=== PATIENT | male | born 1950 | race Caucasian/White ===

== ENCOUNTER 2018-04-19 10:29 | Observation (INO) | payer OTHER ==
[~2018-04-19] VITALS: Ht 185.4 cm; Wt 80.0 kg
[2018-04-19 10:33] VITALS: BP 151/69; PULSE 101; RESP 16; TEMP 98.1; O2SAT 95
--- NOTE | 2018-04-19 11:39 | PD ---
HPI Chief Complaint: Chest Pain Time Seen by Provider: 11:23 Travel History International Travel<30 days: No Contact w/Intl Traveler<30days: No Traveled to known affect area: No History of Present Illness HPI 68-year-old male with PMH of MRSA, chronic alcoholism presents the ED for evaluation of left-sided chest pain. Onset at rest "around 6AM." Intermittent , rated 7/10, sharp, no alleviating or exacerbating factors. Accompanied by nausea. No pain on presentation. Patient denies diaphoresis, palpitations, radiation of the pain, vomiting. Patient also reports that "I feel drunk even though my last beer was about 12 hours ago." He denies headache, dizziness, vision changes, slurred speech, unilateral weakness. He denies history of withdrawal seizure. He has not seen a PCP in many years. He takes no daily medications. He has been a pack-a-day smoker since he was a teenager. He is unsure of any family history of [place]. [facility] Social History Alcohol Use: Yes (occasionally) Tobacco Use: Yes Substance Use: No Allergies-Medications (Allergen,Severity, Reaction): Coded Allergies: *MDRO Multi-Drug Resistant Organism (Verified Adverse Reaction, Unknown, 08/25/16) MRSA (face-08/23/16) Review of Systems Except as stated in HPI: all other systems reviewed are Neg Physical Exam Narrative GENERAL: Well-nourished, well-developed white female no acute distress. SKIN: Focused skin assessment warm/dry. Deeply tanned. HEAD: Normocephalic. EYES: No scleral icterus. No injection or drainage. PERRLA. EOMI. NECK: Supple, trachea midline. No JVD or lymphadenopathy. CARDIOVASCULAR: Regular rate and rhythm without murmurs, gallops, or rubs. RESPIRATORY: Breath sounds clear and equal bilaterally. No accessory muscle use. GASTROINTESTINAL: Abdomen soft, non-tender, nondistended. Active bowel sounds. MUSCULOSKELETAL: No cyanosis, or edema. NEUROLOGICAL: Awake and alert. Cranial nerves II through XII intact. Motor and sensory grossly within normal limits. Five out of 5 muscle strength in all muscle groups. Mild tremor noted. Normal speech. BACK: Nontender without obvious deformity. No CVA tenderness. Data Data Last Documented VS Vital Signs Date Time Temp Pulse Resp B/P (MAP) Pulse Ox O2 Delivery O2 Flow Rate FiO2 6/25/18 12:55 04/19/18 11:50 100 04/19/18 10:33 98.1 101 16 Orders Orders Electrocardiogram (04/19/18 10:39) Complete Blood Count With Diff (04/19/18 10:39) Basic Metabolic Panel (Bmp) (04/19/18 10:39) Ckmb (Isoenzyme) Profile (04/19/18 10:39) Troponin I (04/19/18 10:39) Chest, Single Ap (04/19/18 10:39) Iv Access Insert/Monitor (04/19/18 10:39) Ecg Monitoring (04/19/18 10:39) Oxygen Administration (04/19/18 10:39) Oximetry (04/19/18 10:39) Aspirin (Aspirin) (04/19/18 11:45) Sodium Chlor 0.9% 1000 Ml Inj (Ns 1000 M (04/19/18 11:45) Alcohol (Ethanol) (04/19/18 11:35) Lipase (04/19/18 11:35) CKMB (04/19/18 10:53) CKMB% (04/19/18 10:53) Alcohol Withdrawal Asmt-Ciwa ONCE (04/19/18 13:16) Lorazepam (Ativan) (04/19/18 13:30) Lorazepam Inj (Ativan Inj) (04/19/18 13:30) Lorazepam (Ativan) (04/19/18 13:30) Lorazepam Inj (Ativan Inj) (04/19/18 13:30) Lorazepam Inj (Ativan Inj) (04/19/18 13:30) Lorazepam Inj (Ativan Inj) (04/19/18 13:30) Electrocardiogram (04/19/18 ) Troponin I (04/19/18 13:47) Ckmb (Isoenzyme) Profile (04/19/18 13:47) Labs Laboratory Tests Test 04/19/18 10:53 04/19/18 11:45 White Blood Count 4.2 TH/MM3 Red Blood Count 4.07 MIL/MM3 Hemoglobin 14.6 GM/DL Hematocrit 42.6 % Mean Corpuscular Volume 104.7 FL Mean Corpuscular Hemoglobin 35.8 PG Mean Corpuscular Hemoglobin Concent 34.2 % Red Cell Distribution Width 14.9 % Platelet Count 98 TH/MM3 Mean Platelet Volume 8.6 FL Neutrophils (%) (Auto) 45.0 % Lymphocytes (%) (Auto) 42.6 % Monocytes (%) (Auto) 7.9 % Eosinophils (%) (Auto) 3.7 % Basophils (%) (Auto) 0.8 % Neutrophils # (Auto) 1.9 TH/MM3 Lymphocytes # (Auto) 1.8 TH/MM3 Monocytes # (Auto) 0.3 TH/MM3 Eosinophils # (Auto) 0.2 TH/MM3 Basophils # (Auto) 0.0 TH/MM3 CBC Comment AUTO DIFF Differential Comment AUTO DIFF CONFIRMED Platelet Estimate LOW Platelet Morphology Comment NORMAL Blood Urea Nitrogen 9 MG/DL Creatinine 0.75 MG/DL Random Glucose 107 MG/DL Calcium Level 7.9 MG/DL Sodium Level 142 MEQ/L Potassium Level 4.1 MEQ/L Chloride Level 105 MEQ/L Carbon Dioxide Level 27.5 MEQ/L Anion Gap 10 MEQ/L Estimat Glomerular Filtration Rate 104 ML/MIN Total Creatine Kinase 114 U/L Creatine Kinase MB 1.5 NG/ML Troponin I LESS THAN 0.02 NG/ML Lipase 149 U/L Ethyl Alcohol Level 308 MG/DL [facility] Medical Decision Making Medical Screen Exam Complete: Yes Emergency Medical Condition: Yes Differential Diagnosis chest pain versus ACS versus dehydration versus metabolic derangement versus alcohol withdrawal versus other Narrative Course 68-year-old male with PMH of MRSA, chronic alcoholism presents the ED for evaluation of left-sided chest pain. Patient also reports that "I feel drunk even though my last beer was about 12 hours ago." Vitals reviewed, pulse 101, BP 151/69 on presentation. On physical exam there are no focal neuro deficits. No appreciable M/R/G. IV was established. Patient was administered 1 L normal saline and 3 and 25 mg aspirin. EKG rate 90, sinus rhythm. WA interval 176, QRS 138, QTC 454 ms. RBBB. Q waves in V1/V2. Reviewed by Dr. Ramirez. No previous available for comparison. CXR: Very minimal bibasilar parenchymal changes otherwise negative per radiology read. Cardiac enzymes negative 1. CBC: WBC 4.2. Hemoglobin 14.6. Platelets 98. CMP: BUN 9, creatinine 0.75. Lipase 149. Toxicology: Alcohol 308. I discussed the results of the workup with the patient. Given his risk factors and EKG will admit for rule out ACS. Patient's agreeable to this plan. Spoke with Dr. Tian who agrees to accept the patient to the medicine service. Please see medicine notes for disposition. Diagnosis Primary Impression: Chest pain Additional Impression: Acute alcohol intoxication Zara Guerrero Apr 19, 2018 11:39
[2018-04-19 11:45] LABS: AUTOMATED NEUTROPHIL # 1.9 TH/MM3 (1.8-7.7); BASOPHIL % 0.8 % (0.0-2.0); EOSINOPHIL # 0.2 TH/MM3 (0-0.4); EOSINOPHIL % 3.7 % (0.0-4.0); HEMATOCRIT 42.6 % (39.0-51.0); HEMOGLOBIN 14.6 GM/DL (13.0-17.0); LYMPH % 42.6 % (9.0-44.0); LYMPHOCYTE # 1.8 TH/MM3 (1.0-4.8); MEAN CELL VOLUME 104.7 FL (80.0-100.0); MEAN CORPUSCULAR HEMOGLOBIN 35.8 PG (27.0-34.0); MEAN CORPUSCULAR HGB CONC 34.2 % (32.0-36.0); MEAN PLATELET VOLUME 8.6 FL (7.0-11.0); MONO % 7.9 % (0.0-8.0); MONOCYTE # 0.3 TH/MM3 (0-0.9); PLATELET COUNT 98 TH/MM3 (150-450); RED BLOOD COUNT 4.07 MIL/MM3 (4.50-5.90); RED CELL DISTRIBUTION WIDTH 14.9 % (11.6-17.2); WHITE BLOOD COUNT 4.2 TH/MM3 (4.0-11.0)
[2018-04-19] MEDS ORDERED: ASPIRIN 325 MG TAB PO ONE (11:45)
[2018-04-19] MEDS ORDERED: SODIUM CHLOR 0.9% 1000 ML INJ 1,000 ML IV ONE (11:45)
[2018-04-19 11:50] VITALS: BP_SYST 131; BP_SYST 81; BP_DIAS 81
--- NOTE | 2018-04-19 12:06 | RADRPT ---
EXAM DATE: 04/19/2018 11:47 AM EDT AGE/SEX: 68 years / Male INDICATIONS: Chest pain. CLINICAL DATA: This is the patient's initial encounter. Patient reports that signs and symptoms have been present for 1 day and indicates a pain score of 8/10. MEDICAL/SURGICAL HISTORY: None. None. COMPARISON: No prior exams available for comparison. FINDINGS: A single AP view of the chest demonstrates the lungs to be symmetrically aerated without evidence of mass, infiltrate or effusion. Very minimal bibasilar parenchymal changes are evident. The cardiomedia stinal contours are unremarkable. Osseous structures are intact. CONCLUSION: Very minimal bibasilar parenchymal changes otherwise negative Electronically signed by: Donis Hopper MD 04/19/2018 12:04 PM EDT
[2018-04-19 12:13] LABS: BICARBONATE 27.5 MEQ/L (21.0-32.0); BLOOD UREA NITROGEN 9 MG/DL (7-18); CALCIUM 7.9 MG/DL (8.5-10.1); CHLORIDE 105 MEQ/L (98-107); CREATININE 0.75 MG/DL (0.60-1.30); GLOMERULAR FILTRATION RATE 104 ML/MIN (>89); GLUCOSE,RANDOM 107 MG/DL (74-106); SODIUM (NA) 142 MEQ/L (136-145)
[2018-04-19 12:17] LABS: TROPONIN I LESS THAN 0.02 NG/ML (0.02-0.05)
[2018-04-19] MEDS ORDERED: LORazepam 2 MG TAB PO PRN (13:30)
[2018-04-19] MEDS ORDERED: LORazepam 1 MG TAB PO PRN (13:30)
[2018-04-19] MEDS ORDERED: LORazepam 2 MG/ML VIAL IV PUSH PRN ×4 (13:30)
--- NOTE | 2018-04-19 14:01 | PD ---
Physical Exam Date Seen by Provider: Apr 19, 2018 Data Data Last Documented VS Vital Signs Date Time Temp Pulse Resp B/P (MAP) Pulse Ox O2 Delivery O2 Flow Rate FiO2 04/19/18 12:55 04/19/18 11:50 100 04/19/18 10:33 98.1 101 16 Orders Orders Electrocardiogram (04/19/18 10:39) Complete Blood Count With Diff (04/19/18 10:39) Basic Metabolic Panel (Bmp) (04/19/18 10:39) Ckmb (Isoenzyme) Profile (04/19/18 10:39) Troponin I (04/19/18 10:39) Chest, Single Ap (04/19/18 10:39) Iv Access Insert/Monitor (04/19/18 10:39) Ecg Monitoring (04/19/18 10:39) Oxygen Administration (04/19/18 10:39) Oximetry (04/19/18 10:39) Aspirin (Aspirin) (04/19/18 11:45) Sodium Chlor 0.9% 1000 Ml Inj (Ns 1000 M (04/19/18 11:45) Alcohol (Ethanol) (04/19/18 11:35) Lipase (04/19/18 11:35) CKMB (04/19/18 10:53) CKMB% (04/19/18 10:53) Alcohol Withdrawal Asmt-Ciwa ONCE (04/19/18 13:16) Lorazepam (Ativan) (04/19/18 13:30) Lorazepam Inj (Ativan Inj) (04/19/18 13:30) Lorazepam (Ativan) (04/19/18 13:30) Lorazepam Inj (Ativan Inj) (04/19/18 13:30) Lorazepam Inj (Ativan Inj) (04/19/18 13:30) Lorazepam Inj (Ativan Inj) (04/19/18 13:30) Electrocardiogram (04/19/18 ) Troponin I (04/19/18 13:47) Ckmb (Isoenzyme) Profile (04/19/18 13:47) Labs Laboratory Tests Test 04/19/18 10:53 04/19/18 11:45 White Blood Count 4.2 TH/MM3 Red Blood Count 4.07 MIL/MM3 Hemoglobin 14.6 GM/DL Hematocrit 42.6 % Mean Corpuscular Volume 104.7 FL Mean Corpuscular Hemoglobin 35.8 PG Mean Corpuscular Hemoglobin Concent 34.2 % Red Cell Distribution Width 14.9 % Platelet Count 98 TH/MM3 Mean Platelet Volume 8.6 FL Neutrophils (%) (Auto) 45.0 % Lymphocytes (%) (Auto) 42.6 % Monocytes (%) (Auto) 7.9 % Eosinophils (%) (Auto) 3.7 % Basophils (%) (Auto) 0.8 % Neutrophils # (Auto) 1.9 TH/MM3 Lymphocytes # (Auto) 1.8 TH/MM3 Monocytes # (Auto) 0.3 TH/MM3 Eosinophils # (Auto) 0.2 TH/MM3 Basophils # (Auto) 0.0 TH/MM3 CBC Comment AUTO DIFF Differential Comment AUTO DIFF CONFIRMED Platelet Estimate LOW Platelet Morphology Comment NORMAL Blood Urea Nitrogen 9 MG/DL Creatinine 0.75 MG/DL Random Glucose 107 MG/DL Calcium Level 7.9 MG/DL Sodium Level 142 MEQ/L Potassium Level 4.1 MEQ/L Chloride Level 105 MEQ/L Carbon Dioxide Level 27.5 MEQ/L Anion Gap 10 MEQ/L Estimat Glomerular Filtration Rate 104 ML/MIN Total Creatine Kinase 114 U/L Creatine Kinase MB 1.5 NG/ML Troponin I LESS THAN 0.02 NG/ML Lipase 149 U/L Ethyl Alcohol Level 308 MG/DL [facility] Medical Record Reviewed: Yes Supervised Visit with [facility]CO: Yes Narrative Course I, Dr. Ramirez, have reviewed the advance practice practitioner's documentation and am in agreement, met with the patient face to face, made the diagnosis, and the medical decision making was done by me. *My assessment and Findings: Patient is a 68-year-old male who presents the emergency room complaints of left -sided chest pain. Patient reports that he began to have chest pain around 6 AM this morning, patient reports that pain is sharp and stabbing and nonradiating in nature. Patient with no history of hypertension, hyperlipidemia or diabetes, Reports that he is an alcoholic. During the ER visit, patient had a lab work including cardiac enzymes and EKG. CBC & BMP Diagram 04/19/18 10:53 Calcium Level 7.9 L Troponin is less than 0.02, EKG is abnormal, patient appears to have a right bundle branch block, there is no prior EKGs to compare. Plan to observe him the hospital overnight for chest pain observation. Diagnosis Primary Impression: Chest pain Additional Impression: Alcoholism Admitting Information Admitting Physician Requests: Observation Evangelina Ramirez DO Apr 19, 2018 14:01
[2018-04-19] MEDS ORDERED: SODIUM CHLOR 0.9% 1000 ML INJ 1,000 ML IV SCH (14:22)
--- NOTE | 2018-04-19 14:22 | HHI.HP ---
[facility] [place] [facility] [place] No Primary Care Physician Admission Diagnosis Diagnoses: Travel History International Travel<30 Days: No Contact w/Intl Traveler <30 Da: No Traveled to Known Affected Are: No History of Present Illness 68 year old male with history of EtOH and tobacco abuse presenting with left-sided chest pain that began upon waking this morning around 6AM. He reports the pain is intermittent, nonradiating, sharp, and 7/10. He endorses some associated nausea but no vomiting, dizziness, palpitations, or visual changes. He denies fever, chills, cough, or shortness of breath. He admits to drinking daily "until I get drunk." He states he drinks about 2-3 shots and four 16-oz beers a day. His last drink was yesterday around midnight. He states he feels "drunk" despite not having a drink in over 12 hours. He states recently he feels like he has been having visual hallucinations. He states he has gone through EtOH withdrawal before but has never had a seizure. He recently lost his job and has been living in his car. He states he feels depressed and would consider ending his life but denies any plans, and when further asked if he would really act on taking his life he says no. He hasn't been seen by a physician in many years. He states about 10 years ago he had similar chest pain and went to a hospital but denies ever having a heart attack or having a cardiac cath or stress test. Upon review of systems, he endorses loose stools, dark urine, and a lump underneath his right nipple that has been present for several months. Review of Systems Except as stated in HPI: all other systems reviewed are Neg Past Family Social History Past Medical History Tobacco abuse EtOH abuse Past Surgical History Hernia repair Reported Medications No home meds Allergies: Coded Allergies: *MDRO Multi-Drug Resistant Organism (Verified Adverse Reaction, Unknown, 08/25/16) MRSA (face-08/23/16) Family History Parents of "old age" Denies any significant medical problems running in the family Social History Homeless Recently lost his job at [employer] EtOH: drinks daily "until he's drunk," about 2-3 shots of liquor a day and four 16-oz beers daily, for many years Tobacco: 1PPD x 50 years Illicit drugs: history of IVDU, last use about 1 year ago; used to smoke crack Physical Exam Vital Signs Vital Signs Date Time Temp Pulse Resp B/P (MAP) Pulse Ox O2 Delivery O2 Flow Rate FiO2 04/19/18 12:55 04/19/18 11:50 131/81 (98) 04/19/18 11:50 100 04/19/18 10:33 98.1 101 16 151/69 (96) 95 Physical Exam GENERAL: Disheveled male laying in bed in [facility]. SKIN: Jaundice. Some spider telangiectasias over chest. HEENT: Atraumatic. Normocephalic. No temporal or scalp tenderness. Pupils equal round and reactive. Extraocular motions intact. +scleral icterus and conjunctival injection. Nose without bleeding, purulent drainage or septal hematoma. Throat without erythema, tonsillar hypertrophy or exudate. Uvula midline. Airway patent. NECK: Trachea midline. No JVD or lymphadenopathy. Supple, nontender, no meningeal signs. CHEST: Palpable 1 cm mobile, nodule underneath right nipple. No palpable left breast or nipple nodules. CARDIOVASCULAR: Regular rate and rhythm without murmurs, gallops, or rubs. RESPIRATORY: Clear to auscultation. Breath sounds equal bilaterally. No wheezes , rales, or rhonchi. GASTROINTESTINAL: Abdomen soft, nondistended, mild RUQ TTP. +HSM. No caput medusae. MUSCULOSKELETAL: Extremities without clubbing, cyanosis, or edema. No joint tenderness, effusion, or edema noted. No calf tenderness. Negative Homans sign bilaterally. NEUROLOGICAL: Awake and alert. Slightly tremulous. PSYCHIATRIC: Emotional lability; crying one minute then laughing the next. Not responding to internal stimuli. Laboratory Laboratory Tests Test 04/19/18 10:53 04/19/18 11:45 White Blood Count 4.2 Red Blood Count 4.07 Hemoglobin 14.6 Hematocrit 42.6 Mean Corpuscular Volume 104.7 Mean Corpuscular Hemoglobin 35.8 Mean Corpuscular Hemoglobin Concent 34.2 Red Cell Distribution Width 14.9 Platelet Count 98 Mean Platelet Volume 8.6 Neutrophils (%) (Auto) 45.0 Lymphocytes (%) (Auto) 42.6 Monocytes (%) (Auto) 7.9 Eosinophils (%) (Auto) 3.7 Basophils (%) (Auto) 0.8 Neutrophils # (Auto) 1.9 Lymphocytes # (Auto) 1.8 Monocytes # (Auto) 0.3 Eosinophils # (Auto) 0.2 Basophils # (Auto) 0.0 CBC Comment AUTO DIFF Differential Comment AUTO DIFF CONFIRMED Platelet Estimate LOW Platelet Morphology Comment NORMAL Blood Urea Nitrogen 9 Creatinine 0.75 Random Glucose 107 Calcium Level 7.9 Sodium Level 142 Potassium Level 4.1 Chloride Level 105 Carbon Dioxide Level 27.5 Anion Gap 10 Estimat Glomerular Filtration Rate 104 Total Creatine Kinase 114 Creatine Kinase MB 1.5 Troponin I LESS THAN 0.02 Lipase 149 Ethyl Alcohol Level 308 Result Diagram: 04/19/18 1053 04/19/18 1053 Imaging Chest X-Ray 04/19/18 1039 Signed Impressions: CONCLUSION: Very minimal bibasilar parenchymal changes otherwise negative Caprini VTE Risk Assessment Caprini VTE Risk Assessment: Mod/High Risk (score >= 2) Caprini Risk Assessment Model Point Value = 1 Point Value = 2 Point Value = 3 Point Value = 5 Age 41-60 Minor surgery BMI > 25 kg/m2 Swollen legs Varicose veins or History of unexplained or recurrent spontaneous Oral contraceptives or hormone replacement Sepsis (< 1 month) Serious lung disease, including pneumonia (< 1 month) Abnormal pulmonary function Acute myocardial infarction Congestive heart failure (< 1 month) History of inflammatory bowel disease Medical patient at bed rest Age 61-74 Arthroscopic surgery Major open surgery (> 45 min) Laparoscopic surgery (> 45 min) Malignancy Confined to bed (> 72 hours) Immobilizing plaster cast Central venous access Age >= 75 History of VTE Family history of VTE Factor V Leiden Prothrombin [id number] Lupus anticoagulant Anticardiolipin antibodies Elevated serum homocysteine Heparin-induced thrombocytopenia Other congenital or acquired thrombophilia Stroke (< 1 month) Elective arthroplasty Hip, pelvis, or leg fracture Acute spinal cord injury (< 1 month) Prophylaxis Regimen Total Risk Factor Score Risk Level Prophylaxis Regimen 0-1 Low Early ambulation 2 Moderate Order ONE of the following: *Sequential Compression Device (SCD) *Heparin 5000 units SQ BID 3-4 Higher Order ONE of the following medications: *Heparin 5000 units SQ TID *Enoxaparin/Lovenox 40 mg SQ daily (WT < 150 kg, CrCl > 30 mL/min) *Enoxaparin/Lovenox 30 mg SQ daily (WT < 150 kg, CrCl > 10-29 mL/min) *Enoxaparin/Lovenox 30 mg SQ BID (WT < 150 kg, CrCl > 30 mL/min) AND/OR *Sequential Compression Device (SCD) 5 or more Highest Order ONE of the following medications: *Heparin 5000 units SQ TID (Preferred with Epidurals) *Enoxaparin/Lovenox 40 mg SQ daily (WT < 150 kg, CrCl > 30 mL/min) *Enoxaparin/Lovenox 30 mg SQ daily (WT < 150 kg, CrCl > 10-29 mL/min) *Enoxaparin/Lovenox 30 mg SQ BID (WT < 150 kg, CrCl > 30 mL/min) AND *Sequential Compression Device (SCD) Assessment and Plan Problem List: (1) Chest pain ICD Code: R07.9 - Chest pain, unspecified Status: Acute (2) Acute alcohol intoxication ICD Code: F10.929 - Alcohol use, unspecified with intoxication, unspecified Status: Acute Assessment and Plan 68 year old male with EtOH abuse presenting with left-sided chest pain and admitted for ACS rule-out. 1. Chest pain - Would be admitted to chest pain center but patient acutely intoxicated - Unclear if this is cardiac in nature vs. anxiety, EtOH withdrawal, PE - Wells score 0 - Initial troponin negative - EKG in the ED with Q-waves in inferior leads and RBBB, no prior EKG to compare - Trend serial enzymes and repeat EKG - Nitro PRN - Supplemental O2 PRN - Morphine PRN - ASA 2. EtOH abuse with acute intoxication - Elevated EtOH level and patient clearly intoxicated - MCV elevated and platelets low - CIWA protocol - Rally pack 3. Jaundice, hepatomegaly - Likely secondary to some form of alcoholic hepatitis - Check LFTs and liver U/S - Check coags - No appreciable ascites to tap 4. History of substance abuse including IVDU - Check hepatitis panel - UDS DVT prophylaxis: patient with thrombocytopenia and likely some form of hepatic coagulopathy therefore will avoid chemical anticoagulation at this time, SCDs Code Status FULL Discussed Condition With Patient and ER physician Gracia Torres MD Apr 19, 2018 14:22
[2018-04-19] MEDS ORDERED: METOCLOPRAMIDE HCL 10 MG/2 ML VIAL IV PUSH PRN (14:30)
[2018-04-19] MEDS ORDERED: LACTULOSE SYRUP 20 GM/30 ML CUP PO PRN (14:30)
[2018-04-19] MEDS ORDERED: SODIUM CHLORIDE 0.9% FLUSH 10 ML FLUSH IV FLUSH PRN (14:30)
[2018-04-19] MEDS ORDERED: MORPHINE SULFATE 4 MG/ML INJ IV PUSH PRN (14:30)
[2018-04-19] MEDS ORDERED: SENNOSIDES 8.6 MG TAB PO PRN (14:30)
[2018-04-19] MEDS ORDERED: BISACODYL 10 MG SUPP RECTAL PRN (14:30)
[2018-04-19] MEDS ORDERED: MAGNESIUM HYDROXIDE SUSP 30 ML CUP PO PRN (14:30)
[2018-04-19 14:53] VITALS: BP 145/68; PULSE 90
[2018-04-19 14:57] LABS: TROPONIN I LESS THAN 0.02 NG/ML (0.02-0.05)
[2018-04-19] MEDS ORDERED: FOLIC ACID 1 MG TAB PO ONE (15:00)
[2018-04-19] MEDS ORDERED: THIAMINE HCL 100 MG TAB PO ONE (15:00)
[2018-04-19] MEDS ORDERED: cloNIDine HCL 0.1 MG TAB PO PRN (15:00)
[2018-04-19] MEDS ORDERED: MULTIVITAMIN TAB PO ONE (15:00)
[2018-04-19 16:11] LABS: TOTAL BILIRUBIN ADULT 3.8 MG/DL (0.2-1.0); TOTAL PROTEIN 7.8 GM/DL (6.4-8.2)
[2018-04-19 16:18] LABS: INDIRECT BILIRUBIN 1.8 MG/DL (0.0-0.8)
[2018-04-19 16:20] LABS: ALBUMIN 2.6 GM/DL (3.4-5.0)
[2018-04-19 17:40] LABS: BILIRUBIN, URINE SMALL (NEG); BLOOD, URINE NEG (NEG); GLUCOSE,URINE 50 mg/dL (NEG); KETONE, URINE NEG (NEG); MUCUS URINE FEW /lpf (OCC); NITRITE,URINE NEG (NEG); URINE COLOR Amber (YELLW/STRAW); URINE LEUKOCYTE ESTERASE NEG (NEG)
[2018-04-19] MEDS ORDERED: NITROGLYCERIN 2% OINT 1 GM PACKET TOP SCH (18:00)
[2018-04-19 18:30] VITALS: PULSE 86
[2018-04-19 20:30] VITALS: BP 113/60; PULSE 89; RESP 16; TEMP 98; O2SAT 95
[2018-04-19] MEDS ORDERED: DOCUSATE SODIUM 50 MG/SENNA 8.6 MG TAB PO SCH (21:00)
[2018-04-19] MEDS ORDERED: SODIUM CHLORIDE 0.9% FLUSH 10 ML FLUSH IV FLUSH SCH (21:00)
--- NOTE | 2018-04-19 21:16 | RADRPT ---
EXAM DATE: 04/19/2018 8:12 PM EDT AGE/SEX: 68 years / Male INDICATIONS: Enlarged liver. CLINICAL DATA: This is the patient's initial encounter. Patient reports that signs and symptoms have been present for 1 day and indicates a pain score of 3/10. MEDICAL/SURGICAL HISTORY: . Tobacco use. MRSA. None. COMPARISON: No prior exams available for comparison. MEASUREMENTS: Liver:__ 21.1 cm. Common Bile Duct:__ Nonvisualized. Right Kidney:__ 12 cm. FINDINGS: Liver: Increased echotexture and coarsened echotexture without focal lesion or ductal dilation. Portal Vein: Hepatopedal flow seen in portal vein. Common Duct: Not adequately visualized. Gallbladder: Demonstrates no wall thickening or pericholecystic fluid. No stones visualized. Pancreas: The visualized portions are within normal limits Right Kidney: Increased echotexture. No mass or hydronephrosis. Other: None. CONCLUSION: 1. Hepatomegaly with mild increased and coarsened echotexture of the liver may indicate steatosis. C oarsened echotexture may indicate fibrosis. No focal liver lesion is identified. 2. Remainder of the examination is within normal limits. Please note that the common duct is not sena quately visualized. Electronically signed by: Avelino Adkins MD 04/19/2018 9:15 PM EDT
--- NOTE | 2018-04-19 21:31 | EKG ---
Date Performed: 04/19/2018 Time Performed: 20:27:17 PTAGE: 68 years EKG: Sinus rhythm WITH SINUS ARRHYTHMIA Left anterior fascicular block INTRAVENTRICULAR CONDUCTION DELAY ABNORMAL ECG No significant change from prior electrocardiogram. PREVIOUS TRACING : 04/19/2018 10.43 DOCTOR: Mayank Eddy Interpretating Date/Time 04/19/2018 21:30:49
[2018-04-19 21:42] LABS: TROPONIN I LESS THAN 0.02 NG/ML (0.02-0.05)
--- NOTE | 2018-04-19 22:33 | EKG ---
Date Performed: 04/19/2018 Time Performed: 10:43:56 PTAGE: 68 years EKG: Sinus rhythm RIGHT BUNDLE BRANCH BLOCK LEFT ANTERIOR FASCICULAR BLOCK PROBABLE SEPTAL MYOCARDIAL INFARCTION ABNOR MAL ECG NO PREVIOUS TRACING DOCTOR: Rashaad Jackson Interpretating Date/Time 04/19/2018 22:31:26
[2018-04-20] MEDS ORDERED: THIAMINE HCL 100 MG TAB PO SCH (09:00)
[2018-04-20] MEDS ORDERED: FOLIC ACID 1 MG TAB PO SCH (09:00)
[2018-04-20] MEDS ORDERED: ASPIRIN 325 MG TAB PO SCH (09:00)
[2018-04-20] MEDS ORDERED: MULTIVITAMIN TAB PO SCH (09:00)
== END 2018-04-20 00:04 | disposition left against medical advice (07) ==
LOC: NEPD 10:29 → NEDA 14:16 → NEPGCP 15:39
PROVIDERS: ADMIT Hospitalist; ATTEND Hospitalist
DX: R07.9 Chest pain, unspecified (principal); F10.929 Alcohol use, unspecified with intoxication, unspecified; K70.10 Alcoholic hepatitis without ascites; K70.0 Alcoholic fatty liver; D69.6 Thrombocytopenia, unspecified; D68.4 Acquired coagulation factor deficiency; F17.210 Nicotine dependence, cigarettes, uncomplicated; I45.10 Unspecified right bundle-branch block; Z59.0 Homelessness
CPT/HCPCS: 71045; 76705; 80048; 80076; 80307; 81001; 82550; 82552; 83690; 84484; 85025; 93005; 96361; 96374; 99285; G0378; J2765; J7030

== ENCOUNTER 2018-04-22 04:04 | Inpatient (IN) ==
[2018-04-24] MEDS ORDERED: LORazepam 1 MG Tablet ONE (23:30)
[2018-04-25] MEDS ORDERED: Chlorhexidine Gluconate 2% 1 Pack (2 Cloths) TOPICAL PRN (01:29)
[2018-04-25] MEDS ORDERED: Haloperidol Inj 5 MG/ML Ampul IV.PUSH PRN (01:30)
[2018-04-25] MEDS ORDERED: Sodium Chlor 0.9% Inj 500 ML IV.SIG PRN (01:56)
[2018-04-25] MEDS: LORazepam 1 MG Tablet PO PRN ×2 (05:22→19:47)
[2018-04-25] MEDS: Octreotide Inj 500 MCG in Sodium Chlor 0.9% Inj 500 ML IV.SIG SCH (05:23)
[2018-04-25] MEDS: Sod Chloride 0.9% Inj 1,000 ML IV.SIG SCH ×3 (07:55→22:07)
[2018-04-25] MEDS: Folic Acid 1 MG Tablet PO SCH (08:07)
[2018-04-25] MEDS: Multivitamin/Minerals Therapeutic Tablet PO SCH (08:07)
[2018-04-25] MEDS: Pantoprazole Inj 40 MG Vial IV.PUSH SCH ×2 (08:08→22:07)
[2018-04-25 08:16] LABS: Baso % (Auto) 0.4 % (0.0-2.0); Eos # (Auto) 0.2 th/mm3 (0.0-0.4); Eos % (Auto) 2.7 % (0.0-4.0); Hematocrit 24.6 % (39.0-51.0); Hemoglobin 8.6 gm/dL (13.0-17.0); Lymph # (Auto) 1.3 th/mm3 (1.0-4.8); Lymph % (Auto) 20.7 % (9.0-44.0); Mean Corpuscular Hemoglobin 37.4 pg (27.0-34.0); Mean Platelet Volume 9.3 fL (7.0-11.0); Mono # (Auto) 0.6 th/mm3 (0.0-0.9); Mono % (Auto) 8.8 % (0.0-8.0); Neut # (Auto) 4.4 th/mm3 (1.8-7.7); Neut % (Auto) 67.4 % (16.0-70.0); Platelet Count 59 th/mm3 (150-450); Red Cell Distribution Width 14.6 % (11.6-17.2); White Blood Count 6.5 th/mm3 (4.0-11.0)
[2018-04-25 09:37] LABS: Acanthocytes 1+; Platelet Morphology Normal (Normal)
--- NOTE | 2018-04-25 09:47 | P.PN ---
Subjective Interval history: Nursing denies any deterioration since last night. Patient reports his abdominal pain is improved since admission. Physical Exam Vital signs: Vital Signs 04/25/18 00:00 04/25/18 04:00 04/25/18 08:00 Temperature 98.2 F 98.3 F 98.8 F Pulse Rate 82 81 84 Respiratory Rate 17 17 18 Blood Pressure 117/62 111/60 103/55 L Pulse Oximetry 93 L 93 L 98 Intake & Output 04/24/18 04/25/18 04/25/18 18:59 06:59 18:59 Intake Total 240 / 240 Output Total 600 / 600 Balance -360 / -360 Weight 76.2 kg Intake: Oral 240 / 240 Output: Urine 600 / 600 Narrative: Abdomen is only minimally tender to palpation, nondistended, soft Lying in bed, awake, alert, no acute distress Results - Labs CBC & Chem 7: 04/25/18 06:35 04/24/18 05:22 Labs: Laboratory Results - last 24 hr 04/22/18 04/22/18 04/22/18 01:20 01:20 01:20 WBC 9.2 D RBC 3.31 L Hgb 11.9 L Hct 34.6 L MCV 104.5 H MCH 35.9 H MCHC 34.4 RDW 14.7 Plt Count 90 L MPV 8.7 Prelim Diff (Auto) Neut % (Auto) 58.2 Lymph % (Auto) 29.8 [place] % (Auto) 10.4 H Eos % (Auto) 0.9 Baso % (Auto) 0.7 Neut # (Auto) 5.3 Lymph # (Auto) 2.7 [place] # (Auto) 1.0 H Eos # (Auto) 0.1 Baso # (Auto) 0.1 CBC Comment AUTO DIFF WBC Differential Diff Scan Differential Comment AUTO DIFF CONFIRMED Platelet Estimate LOW L Platelet Morphology Plt Morphology Comment NORMAL Ovalocytes 1+ H Acanthocytes (Spur) PT 16.9 H INR 1.7 APTT 34.6 H Sodium 143 Potassium 3.9 Chloride 108 H Carbon Dioxide 25.7 Anion Gap 9 BUN 25 H D Creatinine 0.53 L Estimated GFR 155 Random Glucose 99 Calcium 7.9 L Prot Corrected Calcium Phosphorus Magnesium Iron TIBC % Saturation Ferritin Total Bilirubin 5.0 H AST 90 H ALT 46 Alkaline Phosphatase 66 Ammonia Total Creatine Kinase Troponin I Total Protein 7.4 Albumin 2.5 L [id number]-[id number] Ceruloplasmin Lipase 133 Tumor Marker AFP Urine Opiates Screen Ur Barbiturates Screen Ur Amphetamines Screen U Benzodiazepines Scrn Urine Cocaine Screen U Cannabinoids Screen Ethyl Alcohol 197 H [place] Screen Anti-Smooth Muscle Ab Tiss Transglutamin IgG Tiss Transglutamin IgA Hepatitis A IgM Ab Hep Bs Antigen Hep B Core IgM Ab Hep C IgG Ab 04/22/18 04/22/18 04/22/18 06:40 09:30 10:35 WBC RBC Hgb 10.6 L Hct 30.6 L MCV MCH MCHC RDW Plt Count MPV Prelim Diff (Auto) Neut % (Auto) Lymph % (Auto) [place] % (Auto) Eos % (Auto) Baso % (Auto) Neut # (Auto) Lymph # (Auto) [place] # (Auto) Eos # (Auto) Baso # (Auto) CBC Comment WBC Differential Diff Scan Differential Comment Platelet Estimate Platelet Morphology Plt Morphology Comment Ovalocytes Acanthocytes (Spur) PT INR APTT Sodium Potassium Chloride Carbon Dioxide Anion Gap BUN Creatinine Estimated GFR Random Glucose Calcium Prot Corrected Calcium Phosphorus Magnesium Iron 167 TIBC 172 L % Saturation 97.0 H Ferritin 619 H Total Bilirubin AST ALT Alkaline Phosphatase Ammonia Total Creatine Kinase Troponin I Total Protein Albumin Avoot-0-Yngamfqfalu Ceruloplasmin Lipase Tumor Marker AFP Urine Opiates Screen NEG Ur Barbiturates Screen NEG Ur Amphetamines Screen NEG U Benzodiazepines Scrn NEG Urine Cocaine Screen NEG U Cannabinoids Screen NEG Ethyl Alcohol [place] Screen Anti-Smooth Muscle Ab Tiss Transglutamin IgG Tiss Transglutamin IgA Hepatitis A IgM Ab Hep Bs Antigen Hep B Core IgM Ab Hep C IgG Ab 04/22/18 04/22/18 04/22/18 10:35 10:35 10:35 WBC RBC Hgb Hct MCV MCH MCHC RDW Plt Count MPV Prelim Diff (Auto) Neut % (Auto) Lymph % (Auto) [place] % (Auto) Eos % (Auto) Baso % (Auto) Neut # (Auto) Lymph # (Auto) [place] # (Auto) Eos # (Auto) Baso # (Auto) CBC Comment WBC Differential Diff Scan Differential Comment Platelet Estimate Platelet Morphology Plt Morphology Comment Ovalocytes Acanthocytes (Spur) PT INR APTT Sodium Potassium Chloride Carbon Dioxide Anion Gap BUN Creatinine Estimated GFR Random Glucose Calcium Prot Corrected Calcium Phosphorus Magnesium Iron TIBC % Saturation Ferritin Total Bilirubin AST ALT Alkaline Phosphatase Ammonia 98 H Total Creatine Kinase Troponin I Total Protein Albumin [id number] 121 Ceruloplasmin 19 Lipase Tumor Marker AFP 8.2 H Urine Opiates Screen Ur Barbiturates Screen Ur Amphetamines Screen U Benzodiazepines Scrn Urine Cocaine Screen U Cannabinoids Screen Ethyl Alcohol [place] Screen Anti-Smooth Muscle Ab Tiss Transglutamin IgG Tiss Transglutamin IgA Hepatitis A IgM Ab NONREACTIVE Hep Bs Antigen NONREACTIVE Hep B Core IgM Ab NONREACTIVE Hep C IgG Ab REACTIVE H 04/22/18 04/22/18 04/22/18 10:35 10:35 16:17 WBC RBC Hgb 9.9 L Hct 28.4 L MCV MCH MCHC RDW Plt Count MPV Prelim Diff (Auto) Neut % (Auto) Lymph % (Auto) [place] % (Auto) Eos % (Auto) Baso % (Auto) Neut # (Auto) Lymph # (Auto) [place] # (Auto) Eos # (Auto) Baso # (Auto) CBC Comment WBC Differential Diff Scan Differential Comment Platelet Estimate Platelet Morphology Plt Morphology Comment Ovalocytes Acanthocytes (Spur) PT INR APTT Sodium Potassium Chloride Carbon Dioxide Anion Gap BUN Creatinine Estimated GFR Random Glucose Calcium Prot Corrected Calcium Phosphorus Magnesium Iron TIBC % Saturation Ferritin Total Bilirubin AST ALT Alkaline Phosphatase Ammonia Total Creatine Kinase Troponin I Total Protein Albumin Thcvz-6-Hpdpuddgurg Ceruloplasmin Lipase Tumor Marker AFP Urine Opiates Screen Ur Barbiturates Screen Ur Amphetamines Screen U Benzodiazepines Scrn Urine Cocaine Screen U Cannabinoids Screen Ethyl Alcohol [place] Screen NEG Anti-Smooth Muscle Ab Negative Tiss Transglutamin IgG 1.2 Tiss Transglutamin IgA <1.2 Hepatitis A IgM Ab Hep Bs Antigen Hep B Core IgM Ab Hep C IgG Ab 04/22/18 04/23/18 04/23/18 19:31 03:15 03:24 WBC RBC Hgb 10.1 L 8.7 L Hct 29.5 L 24.9 L MCV MCH MCHC RDW Plt Count MPV Prelim Diff (Auto) Neut % (Auto) Lymph % (Auto) [place] % (Auto) Eos % (Auto) Baso % (Auto) Neut # (Auto) Lymph # (Auto) [place] # (Auto) Eos # (Auto) Baso # (Auto) CBC Comment WBC Differential Diff Scan Differential Comment Platelet Estimate Platelet Morphology Plt Morphology Comment Ovalocytes Acanthocytes (Spur) PT INR APTT Sodium 145 Potassium 4.0 Chloride 113 H Carbon Dioxide 24.7 Anion Gap 7 BUN 25 H Creatinine 0.67 Estimated GFR 118 Random Glucose 100 Calcium 7.2 L* Prot Corrected Calcium 7.8 L Phosphorus Magnesium Iron TIBC % Saturation Ferritin Total Bilirubin 7.2 H AST 80 H ALT 34 Alkaline Phosphatase 45 Ammonia Total Creatine Kinase Troponin I Total Protein 5.9 L D Albumin 2.1 L Vdtrb-6-Ivuzvwchbyt Ceruloplasmin Lipase Tumor Marker AFP Urine Opiates Screen Ur Barbiturates Screen Ur Amphetamines Screen U Benzodiazepines Scrn Urine Cocaine Screen U Cannabinoids Screen Ethyl Alcohol [place] Screen Anti-Smooth Muscle Ab Tiss Transglutamin IgG Tiss Transglutamin IgA Hepatitis A IgM Ab Hep Bs Antigen Hep B Core IgM Ab Hep C IgG Ab 04/23/18 04/23/18 04/23/18 03:24 03:24 15:20 WBC 5.5 RBC 2.40 L Hgb 8.9 L Hct 25.5 L MCV 106.2 H MCH 37.1 H MCHC 34.9 RDW 14.7 Plt Count 64 L MPV 9.3 Prelim Diff (Auto) Neut % (Auto) 47.9 Lymph % (Auto) 38.1 [place] % (Auto) 9.5 H Eos % (Auto) 3.7 Baso % (Auto) 0.8 Neut # (Auto) 2.6 Lymph # (Auto) 2.1 [place] # (Auto) 0.5 Eos # (Auto) 0.2 Baso # (Auto) 0.0 CBC Comment AUTO DIFF WBC Differential Diff Scan Differential Comment AUTO DIFF CONFIRMED Platelet Estimate LOW L Platelet Morphology Plt Morphology Comment NORMAL Ovalocytes Acanthocytes (Spur) PT INR APTT Sodium Potassium Chloride Carbon Dioxide Anion Gap BUN Creatinine Estimated GFR Random Glucose Calcium Prot Corrected Calcium Phosphorus Magnesium Iron TIBC % Saturation Ferritin Total Bilirubin AST ALT Alkaline Phosphatase Ammonia Total Creatine Kinase 168 128 Troponin I LESS THAN 0.02 L LESS THAN 0.02 L Total Protein Albumin Crbfe-8-Gsbmagtxiyp Ceruloplasmin Lipase Tumor Marker AFP Urine Opiates Screen Ur Barbiturates Screen Ur Amphetamines Screen U Benzodiazepines Scrn Urine Cocaine Screen U Cannabinoids Screen Ethyl Alcohol [place] Screen Anti-Smooth Muscle Ab Tiss Transglutamin IgG Tiss Transglutamin IgA Hepatitis A IgM Ab Hep Bs Antigen Hep B Core IgM Ab Hep C IgG Ab 04/23/18 04/23/18 04/23/18 15:20 21:20 22:11 WBC RBC Hgb 8.4 L 8.0 L Hct 24.6 L 23.1 L MCV MCH MCHC RDW Plt Count MPV Prelim Diff (Auto) Neut % (Auto) Lymph % (Auto) [place] % (Auto) Eos % (Auto) Baso % (Auto) Neut # (Auto) Lymph # (Auto) [place] # (Auto) Eos # (Auto) Baso # (Auto) CBC Comment WBC Differential Diff Scan Differential Comment Platelet Estimate Platelet Morphology Plt Morphology Comment Ovalocytes Acanthocytes (Spur) PT INR APTT Sodium Potassium Chloride Carbon Dioxide Anion Gap BUN Creatinine Estimated GFR Random Glucose Calcium Prot Corrected Calcium Phosphorus Magnesium 1.5 Iron TIBC % Saturation Ferritin Total Bilirubin AST ALT Alkaline Phosphatase Ammonia Total Creatine Kinase 113 Troponin I LESS THAN 0.02 L Total Protein Albumin Vtqfm-0-Ocnmsgpkecn Ceruloplasmin Lipase Tumor Marker AFP Urine Opiates Screen Ur Barbiturates Screen Ur Amphetamines Screen U Benzodiazepines Scrn Urine Cocaine Screen U Cannabinoids Screen Ethyl Alcohol [place] Screen Anti-Smooth Muscle Ab Tiss Transglutamin IgG Tiss Transglutamin IgA Hepatitis A IgM Ab Hep Bs Antigen Hep B Core IgM Ab Hep C IgG Ab 04/24/18 04/24/18 04/24/18 05:22 05:22 16:27 WBC 5.2 RBC 2.13 L Hgb 7.9 L 8.2 L Hct 22.7 L 23.3 L MCV 106.6 H MCH 37.0 H MCHC 34.7 RDW 14.8 Plt Count 55 L MPV 9.2 Prelim Diff (Auto) Neut % (Auto) 52.2 Lymph % (Auto) 32.6 [place] % (Auto) 9.1 H Eos % (Auto) 5.5 H Baso % (Auto) 0.6 Neut # (Auto) 2.7 Lymph # (Auto) 1.7 [place] # (Auto) 0.5 Eos # (Auto) 0.3 Baso # (Auto) 0.0 CBC Comment AUTO DIFF WBC Differential Diff Scan Differential Comment AUTO DIFF CONFIRMED Platelet Estimate Platelet Morphology Plt Morphology Comment Ovalocytes Acanthocytes (Spur) PT INR APTT Sodium 142 Potassium 3.6 Chloride 111 H Carbon Dioxide 23.9 Anion Gap 7 BUN 20 H Creatinine 0.69 Estimated GFR 114 Random Glucose 89 Calcium 7.3 L* Prot Corrected Calcium Phosphorus 2.6 Magnesium 1.5 Iron TIBC % Saturation Ferritin Total Bilirubin AST ALT Alkaline Phosphatase Ammonia Total Creatine Kinase Troponin I Total Protein Albumin 2.0 L Mnlqp-9-Ndrpjxdshto Ceruloplasmin Lipase Tumor Marker AFP Urine Opiates Screen Ur Barbiturates Screen Ur Amphetamines Screen U Benzodiazepines Scrn Urine Cocaine Screen U Cannabinoids Screen Ethyl Alcohol [place] Screen Anti-Smooth Muscle Ab Tiss Transglutamin IgG Tiss Transglutamin IgA Hepatitis A IgM Ab Hep Bs Antigen Hep B Core IgM Ab Hep C IgG Ab 04/24/18 04/25/18 23:07 06:35 WBC 6.5 RBC 2.30 L Hgb 8.5 L 8.6 L Hct 24.4 L 24.6 L MCV 107.0 H MCH 37.4 H MCHC 35.0 RDW 14.6 Plt Count 59 L MPV 9.3 Prelim Diff (Auto) Slide review pending Neut % (Auto) 67.4 Lymph % (Auto) 20.7 [place] % (Auto) 8.8 H Eos % (Auto) 2.7 Baso % (Auto) 0.4 Neut # (Auto) 4.4 Lymph # (Auto) 1.3 [place] # (Auto) 0.6 Eos # (Auto) 0.2 Baso # (Auto) 0.0 CBC Comment WBC Differential . Diff Scan Auto diff confirmed Differential Comment . Platelet Estimate Low L Platelet Morphology Normal Plt Morphology Comment Ovalocytes Acanthocytes (Spur) 1+ H PT INR APTT Sodium Potassium Chloride Carbon Dioxide Anion Gap BUN Creatinine Estimated GFR Random Glucose Calcium Prot Corrected Calcium Phosphorus Magnesium Iron TIBC % Saturation Ferritin Total Bilirubin AST ALT Alkaline Phosphatase Ammonia Total Creatine Kinase Troponin I Total Protein Albumin Aosmq-7-Zofiqdfmqzt Ceruloplasmin Lipase Tumor Marker AFP Urine Opiates Screen Ur Barbiturates Screen Ur Amphetamines Screen U Benzodiazepines Scrn Urine Cocaine Screen U Cannabinoids Screen Ethyl Alcohol [place] Screen Anti-Smooth Muscle Ab Tiss Transglutamin IgG Tiss Transglutamin IgA Hepatitis A IgM Ab Hep Bs Antigen Hep B Core IgM Ab Hep C IgG Ab Assessment and Plan - Plan //GI bleed -Status post EGD, gastritis and portal hypertensive gastropathy was noted -Colonoscopy pending for Thursday, H&H is stable // Alcoholic cirrhosis Recommend alcohol cessation Follow-up as outpatient = GI following. Appreciate assistance. // Alcohol abuse Thiamine/folate/multivitamins [facility] protocol Monitor for signs of withdrawal //Hepatic encephalopathy. improving, continue lactulose. SCDs given recent bleeding
[2018-04-25 15:41] LABS: Anion Gap 10 meq/L (5-15); Blood Urea Nitrogen 12 mg/dL (7-18); Calcium 7.2 mg/dL (8.5-10.1); Carbon Dioxide 23.4 meq/L (21.0-32.0); Chloride 106 meq/L (98-107); Glomerular Filtration Rate Greater Than 89 mL/min (>89); Glucose,Random 89 mg/dL (74-106); Potassium 3.4 meq/L (3.5-5.1); Sodium 139 meq/L (136-145)
[2018-04-25 15:42] LABS: Alanine Aminotransferase 31 U/L (12-78); Albumin 1.9 g/dL (3.4-5.0); Alkaline Phosphatase 47 U/L (45-117); Aspartate Aminotransferase 62 U/L (15-37); Total Protein 5.8 g/dL (6.4-8.2)
[2018-04-25] MEDS ORDERED: PEG 3350/E-Lyte Soln 4000 ML Bottle PO ONE (16:00)
--- NOTE | 2018-04-25 17:07 | P.PNGI ---
Subjective Interval history: Patient is resting in the bed has started drinking his GoLYTELY for prep colonoscopy planned for Thursday No acute abdominal pain at rest No nausea no vomiting no obvious bleeding <JamesMarianne Cassidy - Last Filed: 04/25/18 16:58> Physical Exam Vital signs: Vital Signs 04/25/18 00:00 04/25/18 04:00 04/25/18 08:00 Temperature 98.2 F 98.3 F 98.8 F Pulse Rate 82 81 84 Respiratory Rate 17 17 18 Blood Pressure 117/62 111/60 103/55 L Pulse Oximetry 93 L 93 L 98 04/25/18 12:00 Temperature 98.4 F Pulse Rate 80 Respiratory Rate 18 Blood Pressure 113/62 Pulse Oximetry 93 L Intake & Output 04/24/18 04/25/18 04/25/18 18:59 06:59 18:59 Intake Total 240 / 240 1000 / 1000 Output Total 600 / 600 Balance -360 / -360 1000 / 1000 Weight 76.2 kg Intake: IV 1000 / 1000 NS Inj 1,000 ML @ 100 mls/hr IV 1000 / 1000 .SIG .Q10H [facility] Rx#:[id number] Oral 240 / 240 Output: Urine 600 / 600 - Constitutional no acute distress - Routine HEENT Exam Head: Present: normocephalic, atraumatic Eye: Present: EOMI ENT: Present: mucous membranes moist - Routine Neck Exam Present: supple - Routine Respiratory Exam Present: decreased breath sounds (Mild but no obvious rhonchi or wheezing) - Routine Cardiovascular Exam Present: RRR - Routine Abdominal Exam Present: soft - Routine Extremities Exam Present: edema (Minimal moves extremities with purpose but does have some generalized weakness) - Routine Skin Exam Present: intact - Detailed Neurological Exam: Coma Scale Eye Opening: Spontaneous Verbal Response: Oriented (Answer simple questions appropriately) <Marianne Ramirez M - Last Filed: 04/25/18 16:58> Vital signs: Vital Signs 04/25/18 00:00 04/25/18 04:00 04/25/18 08:00 Temperature 98.2 F 98.3 F 98.8 F Pulse Rate 82 81 84 Respiratory Rate 17 17 18 Blood Pressure 117/62 111/60 103/55 L Pulse Oximetry 93 L 93 L 98 04/25/18 12:00 Temperature 98.4 F Pulse Rate 80 Respiratory Rate 18 Blood Pressure 113/62 Pulse Oximetry 93 L Intake & Output 04/24/18 04/25/18 04/25/18 18:59 06:59 18:59 Intake Total 240 / 240 1000 / 1000 Output Total 600 / 600 Balance -360 / -360 1000 / 1000 Weight 76.2 kg Intake: IV 1000 / 1000 NS Inj 1,000 ML @ 100 mls/hr IV 1000 / 1000 .SIG .Q10H [facility] Rx#:[id number] Oral 240 / 240 Output: Urine 600 / 600 <Mickey Schwarz - Last Filed: 04/25/18 17:14> Results - Labs CBC & Chem 7: 04/25/18 06:35 04/25/18 06:35 Labs: Laboratory Results - last 24 hr 04/22/18 04/22/18 04/22/18 01:20 01:20 01:20 WBC 9.2 D RBC 3.31 L Hgb 11.9 L Hct 34.6 L MCV 104.5 H MCH 35.9 H MCHC 34.4 RDW 14.7 Plt Count 90 L MPV 8.7 Prelim Diff (Auto) Neut % (Auto) 58.2 Lymph % (Auto) 29.8 [place] % (Auto) 10.4 H Eos % (Auto) 0.9 Baso % (Auto) 0.7 Neut # (Auto) 5.3 Lymph # (Auto) 2.7 [place] # (Auto) 1.0 H Eos # (Auto) 0.1 Baso # (Auto) 0.1 CBC Comment AUTO DIFF WBC Differential Diff Scan Differential Comment AUTO DIFF CONFIRMED Platelet Estimate LOW L Platelet Morphology Plt Morphology Comment NORMAL Ovalocytes 1+ H Acanthocytes (Spur) PT 16.9 H INR 1.7 APTT 34.6 H Sodium 143 Potassium 3.9 Chloride 108 H Carbon Dioxide 25.7 Anion Gap 9 BUN 25 H D Creatinine 0.53 L Estimated GFR 155 Random Glucose 99 Calcium 7.9 L Prot Corrected Calcium Phosphorus Magnesium Iron TIBC % Saturation Ferritin Total Bilirubin 5.0 H AST 90 H ALT 46 Alkaline Phosphatase 66 Ammonia Total Creatine Kinase Troponin I Total Protein 7.4 Albumin 2.5 L Iepqm-0-Uqtyreolapa Ceruloplasmin Lipase 133 Tumor Marker AFP Urine Opiates Screen Ur Barbiturates Screen Ur Amphetamines Screen U Benzodiazepines Scrn Urine Cocaine Screen U Cannabinoids Screen Ethyl Alcohol 197 H [place] Screen Anti-Smooth Muscle Ab Tiss Transglutamin IgG Tiss Transglutamin IgA Hepatitis A IgM Ab Hep Bs Antigen Hep B Core IgM Ab Hep C IgG Ab 04/22/18 04/22/18 04/22/18 06:40 09:30 10:35 WBC RBC Hgb 10.6 L Hct 30.6 L MCV MCH MCHC RDW Plt Count MPV Prelim Diff (Auto) Neut % (Auto) Lymph % (Auto) [place] % (Auto) Eos % (Auto) Baso % (Auto) Neut # (Auto) Lymph # (Auto) [place] # (Auto) Eos # (Auto) Baso # (Auto) CBC Comment WBC Differential Diff Scan Differential Comment Platelet Estimate Platelet Morphology Plt Morphology Comment Ovalocytes Acanthocytes (Spur) PT INR APTT Sodium Potassium Chloride Carbon Dioxide Anion Gap BUN Creatinine Estimated GFR Random Glucose Calcium Prot Corrected Calcium Phosphorus Magnesium Iron 167 TIBC 172 L % Saturation 97.0 H Ferritin 619 H Total Bilirubin AST ALT Alkaline Phosphatase Ammonia Total Creatine Kinase Troponin I Total Protein Albumin Cwhoy-2-Cvgwycvojdu Ceruloplasmin Lipase Tumor Marker AFP Urine Opiates Screen NEG Ur Barbiturates Screen NEG Ur Amphetamines Screen NEG U Benzodiazepines Scrn NEG Urine Cocaine Screen NEG U Cannabinoids Screen NEG Ethyl Alcohol [place] Screen Anti-Smooth Muscle Ab Tiss Transglutamin IgG Tiss Transglutamin IgA Hepatitis A IgM Ab Hep Bs Antigen Hep B Core IgM Ab Hep C IgG Ab 04/22/18 04/22/18 04/22/18 10:35 10:35 10:35 WBC RBC Hgb Hct MCV MCH MCHC RDW Plt Count MPV Prelim Diff (Auto) Neut % (Auto) Lymph % (Auto) [place] % (Auto) Eos % (Auto) Baso % (Auto) Neut # (Auto) Lymph # (Auto) [place] # (Auto) Eos # (Auto) Baso # (Auto) CBC Comment WBC Differential Diff Scan Differential Comment Platelet Estimate Platelet Morphology Plt Morphology Comment Ovalocytes Acanthocytes (Spur) PT INR APTT Sodium Potassium Chloride Carbon Dioxide Anion Gap BUN Creatinine Estimated GFR Random Glucose Calcium Prot Corrected Calcium Phosphorus Magnesium Iron TIBC % Saturation Ferritin Total Bilirubin AST ALT Alkaline Phosphatase Ammonia 98 H Total Creatine Kinase Troponin I Total Protein Albumin Pyfrs-3-Kzxrpevhmiu 121 Ceruloplasmin 19 Lipase Tumor Marker AFP 8.2 H Urine Opiates Screen Ur Barbiturates Screen Ur Amphetamines Screen U Benzodiazepines Scrn Urine Cocaine Screen U Cannabinoids Screen Ethyl Alcohol [place] Screen Anti-Smooth Muscle Ab Tiss Transglutamin IgG Tiss Transglutamin IgA Hepatitis A IgM Ab NONREACTIVE Hep Bs Antigen NONREACTIVE Hep B Core IgM Ab NONREACTIVE Hep C IgG Ab REACTIVE H 04/22/18 04/22/18 04/22/18 10:35 10:35 16:17 WBC RBC Hgb 9.9 L Hct 28.4 L MCV MCH MCHC RDW Plt Count MPV Prelim Diff (Auto) Neut % (Auto) Lymph % (Auto) [place] % (Auto) Eos % (Auto) Baso % (Auto) Neut # (Auto) Lymph # (Auto) [place] # (Auto) Eos # (Auto) Baso # (Auto) CBC Comment WBC Differential Diff Scan Differential Comment Platelet Estimate Platelet Morphology Plt Morphology Comment Ovalocytes Acanthocytes (Spur) PT INR APTT Sodium Potassium Chloride Carbon Dioxide Anion Gap BUN Creatinine Estimated GFR Random Glucose Calcium Prot Corrected Calcium Phosphorus Magnesium Iron TIBC % Saturation Ferritin Total Bilirubin AST ALT Alkaline Phosphatase Ammonia Total Creatine Kinase Troponin I Total Protein Albumin Kwlgw-3-Gzmlatqkgwa Ceruloplasmin Lipase Tumor Marker AFP Urine Opiates Screen Ur Barbiturates Screen Ur Amphetamines Screen U Benzodiazepines Scrn Urine Cocaine Screen U Cannabinoids Screen Ethyl Alcohol [place] Screen NEG Anti-Smooth Muscle Ab Negative Tiss Transglutamin IgG 1.2 Tiss Transglutamin IgA <1.2 Hepatitis A IgM Ab Hep Bs Antigen Hep B Core IgM Ab Hep C IgG Ab 04/22/18 04/23/18 04/23/18 19:31 03:15 03:24 WBC RBC Hgb 10.1 L 8.7 L Hct 29.5 L 24.9 L MCV MCH MCHC RDW Plt Count MPV Prelim Diff (Auto) Neut % (Auto) Lymph % (Auto) [place] % (Auto) Eos % (Auto) Baso % (Auto) Neut # (Auto) Lymph # (Auto) [place] # (Auto) Eos # (Auto) Baso # (Auto) CBC Comment WBC Differential Diff Scan Differential Comment Platelet Estimate Platelet Morphology Plt Morphology Comment Ovalocytes Acanthocytes (Spur) PT INR APTT Sodium 145 Potassium 4.0 Chloride 113 H Carbon Dioxide 24.7 Anion Gap 7 BUN 25 H Creatinine 0.67 Estimated GFR 118 Random Glucose 100 Calcium 7.2 L* Prot Corrected Calcium 7.8 L Phosphorus Magnesium Iron TIBC % Saturation Ferritin Total Bilirubin 7.2 H AST 80 H ALT 34 Alkaline Phosphatase 45 Ammonia Total Creatine Kinase Troponin I Total Protein 5.9 L D Albumin 2.1 L Phbxo-3-Julcstbojjt Ceruloplasmin Lipase Tumor Marker AFP Urine Opiates Screen Ur Barbiturates Screen Ur Amphetamines Screen U Benzodiazepines Scrn Urine Cocaine Screen U Cannabinoids Screen Ethyl Alcohol [place] Screen Anti-Smooth Muscle Ab Tiss Transglutamin IgG Tiss Transglutamin IgA Hepatitis A IgM Ab Hep Bs Antigen Hep B Core IgM Ab Hep C IgG Ab 04/23/18 04/23/18 04/23/18 03:24 03:24 15:20 WBC 5.5 RBC 2.40 L Hgb 8.9 L Hct 25.5 L MCV 106.2 H MCH 37.1 H MCHC 34.9 RDW 14.7 Plt Count 64 L MPV 9.3 Prelim Diff (Auto) Neut % (Auto) 47.9 Lymph % (Auto) 38.1 [place] % (Auto) 9.5 H Eos % (Auto) 3.7 Baso % (Auto) 0.8 Neut # (Auto) 2.6 Lymph # (Auto) 2.1 [place] # (Auto) 0.5 Eos # (Auto) 0.2 Baso # (Auto) 0.0 CBC Comment AUTO DIFF WBC Differential Diff Scan Differential Comment AUTO DIFF CONFIRMED Platelet Estimate LOW L Platelet Morphology Plt Morphology Comment NORMAL Ovalocytes Acanthocytes (Spur) PT INR APTT Sodium Potassium Chloride Carbon Dioxide Anion Gap BUN Creatinine Estimated GFR Random Glucose Calcium Prot Corrected Calcium Phosphorus Magnesium Iron TIBC % Saturation Ferritin Total Bilirubin AST ALT Alkaline Phosphatase Ammonia Total Creatine Kinase 168 128 Troponin I LESS THAN 0.02 L LESS THAN 0.02 L Total Protein Albumin Iepbm-5-Lmbhxykwahw Ceruloplasmin Lipase Tumor Marker AFP Urine Opiates Screen Ur Barbiturates Screen Ur Amphetamines Screen U Benzodiazepines Scrn Urine Cocaine Screen U Cannabinoids Screen Ethyl Alcohol [place] Screen Anti-Smooth Muscle Ab Tiss Transglutamin IgG Tiss Transglutamin IgA Hepatitis A IgM Ab Hep Bs Antigen Hep B Core IgM Ab Hep C IgG Ab 04/23/18 04/23/18 04/23/18 15:20 21:20 22:11 WBC RBC Hgb 8.4 L 8.0 L Hct 24.6 L 23.1 L MCV MCH MCHC RDW Plt Count MPV Prelim Diff (Auto) Neut % (Auto) Lymph % (Auto) [place] % (Auto) Eos % (Auto) Baso % (Auto) Neut # (Auto) Lymph # (Auto) [place] # (Auto) Eos # (Auto) Baso # (Auto) CBC Comment WBC Differential Diff Scan Differential Comment Platelet Estimate Platelet Morphology Plt Morphology Comment Ovalocytes Acanthocytes (Spur) PT INR APTT Sodium Potassium Chloride Carbon Dioxide Anion Gap BUN Creatinine Estimated GFR Random Glucose Calcium Prot Corrected Calcium Phosphorus Magnesium 1.5 Iron TIBC % Saturation Ferritin Total Bilirubin AST ALT Alkaline Phosphatase Ammonia Total Creatine Kinase 113 Troponin I LESS THAN 0.02 L Total Protein Albumin Xawxz-6-Akxqdrvuadv Ceruloplasmin Lipase Tumor Marker AFP Urine Opiates Screen Ur Barbiturates Screen Ur Amphetamines Screen U Benzodiazepines Scrn Urine Cocaine Screen U Cannabinoids Screen Ethyl Alcohol [place] Screen Anti-Smooth Muscle Ab Tiss Transglutamin IgG Tiss Transglutamin IgA Hepatitis A IgM Ab Hep Bs Antigen Hep B Core IgM Ab Hep C IgG Ab 04/24/18 04/24/18 04/24/18 05:22 05:22 16:27 WBC 5.2 RBC 2.13 L Hgb 7.9 L 8.2 L Hct 22.7 L 23.3 L MCV 106.6 H MCH 37.0 H MCHC 34.7 RDW 14.8 Plt Count 55 L MPV 9.2 Prelim Diff (Auto) Neut % (Auto) 52.2 Lymph % (Auto) 32.6 [place] % (Auto) 9.1 H Eos % (Auto) 5.5 H Baso % (Auto) 0.6 Neut # (Auto) 2.7 Lymph # (Auto) 1.7 [place] # (Auto) 0.5 Eos # (Auto) 0.3 Baso # (Auto) 0.0 CBC Comment AUTO DIFF WBC Differential Diff Scan Differential Comment AUTO DIFF CONFIRMED Platelet Estimate Platelet Morphology Plt Morphology Comment Ovalocytes Acanthocytes (Spur) PT INR APTT Sodium 142 Potassium 3.6 Chloride 111 H Carbon Dioxide 23.9 Anion Gap 7 BUN 20 H Creatinine 0.69 Estimated GFR 114 Random Glucose 89 Calcium 7.3 L* Prot Corrected Calcium Phosphorus 2.6 Magnesium 1.5 Iron TIBC % Saturation Ferritin Total Bilirubin AST ALT Alkaline Phosphatase Ammonia Total Creatine Kinase Troponin I Total Protein Albumin 2.0 L Wudce-2-Iqhpufttjqf Ceruloplasmin Lipase Tumor Marker AFP Urine Opiates Screen Ur Barbiturates Screen Ur Amphetamines Screen U Benzodiazepines Scrn Urine Cocaine Screen U Cannabinoids Screen Ethyl Alcohol [place] Screen Anti-Smooth Muscle Ab Tiss Transglutamin IgG Tiss Transglutamin IgA Hepatitis A IgM Ab Hep Bs Antigen Hep B Core IgM Ab Hep C IgG Ab 04/24/18 04/25/18 04/25/18 23:07 06:35 06:35 WBC 6.5 RBC 2.30 L Hgb 8.5 L 8.6 L Hct 24.4 L 24.6 L MCV 107.0 H MCH 37.4 H MCHC 35.0 RDW 14.6 Plt Count 59 L MPV 9.3 Prelim Diff (Auto) Slide review pending Neut % (Auto) 67.4 Lymph % (Auto) 20.7 [place] % (Auto) 8.8 H Eos % (Auto) 2.7 Baso % (Auto) 0.4 Neut # (Auto) 4.4 Lymph # (Auto) 1.3 [place] # (Auto) 0.6 Eos # (Auto) 0.2 Baso # (Auto) 0.0 CBC Comment WBC Differential . Diff Scan Auto diff confirmed Differential Comment . Platelet Estimate Low L Platelet Morphology Normal Plt Morphology Comment Ovalocytes Acanthocytes (Spur) 1+ H PT INR APTT Sodium 139 Potassium 3.4 L Chloride 106 Carbon Dioxide 23.4 Anion Gap 10 BUN 12 Creatinine 0.65 Estimated GFR Greater than 89 Random Glucose 89 Calcium 7.2 L* Prot Corrected Calcium 7.9 L Phosphorus Magnesium Iron TIBC % Saturation Ferritin Total Bilirubin 8.3 H AST 62 H ALT 31 Alkaline Phosphatase 47 Ammonia Total Creatine Kinase Troponin I Total Protein 5.8 L Albumin 1.9 L Yxedb-2-Deqmaamuyfo Ceruloplasmin Lipase Tumor Marker AFP Urine Opiates Screen Ur Barbiturates Screen Ur Amphetamines Screen U Benzodiazepines Scrn Urine Cocaine Screen U Cannabinoids Screen Ethyl Alcohol [place] Screen Anti-Smooth Muscle Ab Tiss Transglutamin IgG Tiss Transglutamin IgA Hepatitis A IgM Ab Hep Bs Antigen Hep B Core IgM Ab Hep C IgG Ab <Marianne Ramirez - Last Filed: 04/25/18 16:58> - Labs CBC & Chem 7: 04/25/18 06:35 04/25/18 06:35 Labs: Laboratory Results - last 24 hr 04/22/18 04/22/18 04/22/18 01:20 01:20 01:20 WBC 9.2 D RBC 3.31 L Hgb 11.9 L Hct 34.6 L MCV 104.5 H MCH 35.9 H MCHC 34.4 RDW 14.7 Plt Count 90 L MPV 8.7 Prelim Diff (Auto) Neut % (Auto) 58.2 Lymph % (Auto) 29.8 [place] % (Auto) 10.4 H Eos % (Auto) 0.9 Baso % (Auto) 0.7 Neut # (Auto) 5.3 Lymph # (Auto) 2.7 [place] # (Auto) 1.0 H Eos # (Auto) 0.1 Baso # (Auto) 0.1 CBC Comment AUTO DIFF WBC Differential Diff Scan Differential Comment AUTO DIFF CONFIRMED Platelet Estimate LOW L Platelet Morphology Plt Morphology Comment NORMAL Ovalocytes 1+ H Acanthocytes (Spur) PT 16.9 H INR 1.7 APTT 34.6 H Sodium 143 Potassium 3.9 Chloride 108 H Carbon Dioxide 25.7 Anion Gap 9 BUN 25 H D Creatinine 0.53 L Estimated GFR 155 Random Glucose 99 Calcium 7.9 L Prot Corrected Calcium Phosphorus Magnesium Iron TIBC % Saturation Ferritin Total Bilirubin 5.0 H AST 90 H ALT 46 Alkaline Phosphatase 66 Ammonia Total Creatine Kinase Troponin I Total Protein 7.4 Albumin 2.5 L Qhgsk-4-Edgjnnmajtc Ceruloplasmin Lipase 133 Tumor Marker AFP Urine Opiates Screen Ur Barbiturates Screen Ur Amphetamines Screen U Benzodiazepines Scrn Urine Cocaine Screen U Cannabinoids Screen Ethyl Alcohol 197 H [place] Screen Anti-Smooth Muscle Ab Tiss Transglutamin IgG Tiss Transglutamin IgA Hepatitis A IgM Ab Hep Bs Antigen Hep B Core IgM Ab Hep C IgG Ab 04/22/18 04/22/18 04/22/18 06:40 09:30 10:35 WBC RBC Hgb 10.6 L Hct 30.6 L MCV MCH MCHC RDW Plt Count MPV Prelim Diff (Auto) Neut % (Auto) Lymph % (Auto) [place] % (Auto) Eos % (Auto) Baso % (Auto) Neut # (Auto) Lymph # (Auto) [place] # (Auto) Eos # (Auto) Baso # (Auto) CBC Comment WBC Differential Diff Scan Differential Comment Platelet Estimate Platelet Morphology Plt Morphology Comment Ovalocytes Acanthocytes (Spur) PT INR APTT Sodium Potassium Chloride Carbon Dioxide Anion Gap BUN Creatinine Estimated GFR Random Glucose Calcium Prot Corrected Calcium Phosphorus Magnesium Iron 167 TIBC 172 L % Saturation 97.0 H Ferritin 619 H Total Bilirubin AST ALT Alkaline Phosphatase Ammonia Total Creatine Kinase Troponin I Total Protein Albumin Yohld-7-Rnrroajmamg Ceruloplasmin Lipase Tumor Marker AFP Urine Opiates Screen NEG Ur Barbiturates Screen NEG Ur Amphetamines Screen NEG U Benzodiazepines Scrn NEG Urine Cocaine Screen NEG U Cannabinoids Screen NEG Ethyl Alcohol [place] Screen Anti-Smooth Muscle Ab Tiss Transglutamin IgG Tiss Transglutamin IgA Hepatitis A IgM Ab Hep Bs Antigen Hep B Core IgM Ab Hep C IgG Ab 04/22/18 04/22/18 04/22/18 10:35 10:35 10:35 WBC RBC Hgb Hct MCV MCH MCHC RDW Plt Count MPV Prelim Diff (Auto) Neut % (Auto) Lymph % (Auto) [place] % (Auto) Eos % (Auto) Baso % (Auto) Neut # (Auto) Lymph # (Auto) [place] # (Auto) Eos # (Auto) Baso # (Auto) CBC Comment WBC Differential Diff Scan Differential Comment Platelet Estimate Platelet Morphology Plt Morphology Comment Ovalocytes Acanthocytes (Spur) PT INR APTT Sodium Potassium Chloride Carbon Dioxide Anion Gap BUN Creatinine Estimated GFR Random Glucose Calcium Prot Corrected Calcium Phosphorus Magnesium Iron TIBC % Saturation Ferritin Total Bilirubin AST ALT Alkaline Phosphatase Ammonia 98 H Total Creatine Kinase Troponin I Total Protein Albumin Xzjmn-1-Gfhbdkrcrvp 121 Ceruloplasmin 19 Lipase Tumor Marker AFP 8.2 H Urine Opiates Screen Ur Barbiturates Screen Ur Amphetamines Screen U Benzodiazepines Scrn Urine Cocaine Screen U Cannabinoids Screen Ethyl Alcohol [place] Screen Anti-Smooth Muscle Ab Tiss Transglutamin IgG Tiss Transglutamin IgA Hepatitis A IgM Ab NONREACTIVE Hep Bs Antigen NONREACTIVE Hep B Core IgM Ab NONREACTIVE Hep C IgG Ab REACTIVE H 04/22/18 04/22/18 04/22/18 10:35 10:35 16:17 WBC RBC Hgb 9.9 L Hct 28.4 L MCV MCH MCHC RDW Plt Count MPV Prelim Diff (Auto) Neut % (Auto) Lymph % (Auto) [place] % (Auto) Eos % (Auto) Baso % (Auto) Neut # (Auto) Lymph # (Auto) [place] # (Auto) Eos # (Auto) Baso # (Auto) CBC Comment WBC Differential Diff Scan Differential Comment Platelet Estimate Platelet Morphology Plt Morphology Comment Ovalocytes Acanthocytes (Spur) PT INR APTT Sodium Potassium Chloride Carbon Dioxide Anion Gap BUN Creatinine Estimated GFR Random Glucose Calcium Prot Corrected Calcium Phosphorus Magnesium Iron TIBC % Saturation Ferritin Total Bilirubin AST ALT Alkaline Phosphatase Ammonia Total Creatine Kinase Troponin I Total Protein Albumin [place]-2-Svissvfhseo Ceruloplasmin Lipase Tumor Marker AFP Urine Opiates Screen Ur Barbiturates Screen Ur Amphetamines Screen U Benzodiazepines Scrn Urine Cocaine Screen U Cannabinoids Screen Ethyl Alcohol [place] Screen NEG Anti-Smooth Muscle Ab Negative Tiss Transglutamin IgG 1.2 Tiss Transglutamin IgA <1.2 Hepatitis A IgM Ab Hep Bs Antigen Hep B Core IgM Ab Hep C IgG Ab 04/22/18 04/23/18 04/23/18 19:31 03:15 03:24 WBC RBC Hgb 10.1 L 8.7 L Hct 29.5 L 24.9 L MCV MCH MCHC RDW Plt Count MPV Prelim Diff (Auto) Neut % (Auto) Lymph % (Auto) [place] % (Auto) Eos % (Auto) Baso % (Auto) Neut # (Auto) Lymph # (Auto) [place] # (Auto) Eos # (Auto) Baso # (Auto) CBC Comment WBC Differential Diff Scan Differential Comment Platelet Estimate Platelet Morphology Plt Morphology Comment Ovalocytes Acanthocytes (Spur) PT INR APTT Sodium 145 Potassium 4.0 Chloride 113 H Carbon Dioxide 24.7 Anion Gap 7 BUN 25 H Creatinine 0.67 Estimated GFR 118 Random Glucose 100 Calcium 7.2 L* Prot Corrected Calcium 7.8 L Phosphorus Magnesium Iron TIBC % Saturation Ferritin Total Bilirubin 7.2 H AST 80 H ALT 34 Alkaline Phosphatase 45 Ammonia Total Creatine Kinase Troponin I Total Protein 5.9 L D Albumin 2.1 L Renik-2-Ukjgwixdaki Ceruloplasmin Lipase Tumor Marker AFP Urine Opiates Screen Ur Barbiturates Screen Ur Amphetamines Screen U Benzodiazepines Scrn Urine Cocaine Screen U Cannabinoids Screen Ethyl Alcohol [place] Screen Anti-Smooth Muscle Ab Tiss Transglutamin IgG Tiss Transglutamin IgA Hepatitis A IgM Ab Hep Bs Antigen Hep B Core IgM Ab Hep C IgG Ab 04/23/18 04/23/18 04/23/18 03:24 03:24 15:20 WBC 5.5 RBC 2.40 L Hgb 8.9 L Hct 25.5 L MCV 106.2 H MCH 37.1 H MCHC 34.9 RDW 14.7 Plt Count 64 L MPV 9.3 Prelim Diff (Auto) Neut % (Auto) 47.9 Lymph % (Auto) 38.1 [place] % (Auto) 9.5 H Eos % (Auto) 3.7 Baso % (Auto) 0.8 Neut # (Auto) 2.6 Lymph # (Auto) 2.1 [place] # (Auto) 0.5 Eos # (Auto) 0.2 Baso # (Auto) 0.0 CBC Comment AUTO DIFF WBC Differential Diff Scan Differential Comment AUTO DIFF CONFIRMED Platelet Estimate LOW L Platelet Morphology Plt Morphology Comment NORMAL Ovalocytes Acanthocytes (Spur) PT INR APTT Sodium Potassium Chloride Carbon Dioxide Anion Gap BUN Creatinine Estimated GFR Random Glucose Calcium Prot Corrected Calcium Phosphorus Magnesium Iron TIBC % Saturation Ferritin Total Bilirubin AST ALT Alkaline Phosphatase Ammonia Total Creatine Kinase 168 128 Troponin I LESS THAN 0.02 L LESS THAN 0.02 L Total Protein Albumin Jumoo-3-Jjlqgmrfiwu Ceruloplasmin Lipase Tumor Marker AFP Urine Opiates Screen Ur Barbiturates Screen Ur Amphetamines Screen U Benzodiazepines Scrn Urine Cocaine Screen U Cannabinoids Screen Ethyl Alcohol [place] Screen Anti-Smooth Muscle Ab Tiss Transglutamin IgG Tiss Transglutamin IgA Hepatitis A IgM Ab Hep Bs Antigen Hep B Core IgM Ab Hep C IgG Ab 04/23/18 04/23/18 04/23/18 15:20 21:20 22:11 WBC RBC Hgb 8.4 L 8.0 L Hct 24.6 L 23.1 L MCV MCH MCHC RDW Plt Count MPV Prelim Diff (Auto) Neut % (Auto) Lymph % (Auto) [place] % (Auto) Eos % (Auto) Baso % (Auto) Neut # (Auto) Lymph # (Auto) [place] # (Auto) Eos # (Auto) Baso # (Auto) CBC Comment WBC Differential Diff Scan Differential Comment Platelet Estimate Platelet Morphology Plt Morphology Comment Ovalocytes Acanthocytes (Spur) PT INR APTT Sodium Potassium Chloride Carbon Dioxide Anion Gap BUN Creatinine Estimated GFR Random Glucose Calcium Prot Corrected Calcium Phosphorus Magnesium 1.5 Iron TIBC % Saturation Ferritin Total Bilirubin AST ALT Alkaline Phosphatase Ammonia Total Creatine Kinase 113 Troponin I LESS THAN 0.02 L Total Protein Albumin Lbwtt-9-Fuepibonvkc Ceruloplasmin Lipase Tumor Marker AFP Urine Opiates Screen Ur Barbiturates Screen Ur Amphetamines Screen U Benzodiazepines Scrn Urine Cocaine Screen U Cannabinoids Screen Ethyl Alcohol [place] Screen Anti-Smooth Muscle Ab Tiss Transglutamin IgG Tiss Transglutamin IgA Hepatitis A IgM Ab Hep Bs Antigen Hep B Core IgM Ab Hep C IgG Ab 04/24/18 04/24/18 04/24/18 05:22 05:22 16:27 WBC 5.2 RBC 2.13 L Hgb 7.9 L 8.2 L Hct 22.7 L 23.3 L MCV 106.6 H MCH 37.0 H MCHC 34.7 RDW 14.8 Plt Count 55 L MPV 9.2 Prelim Diff (Auto) Neut % (Auto) 52.2 Lymph % (Auto) 32.6 [place] % (Auto) 9.1 H Eos % (Auto) 5.5 H Baso % (Auto) 0.6 Neut # (Auto) 2.7 Lymph # (Auto) 1.7 [place] # (Auto) 0.5 Eos # (Auto) 0.3 Baso # (Auto) 0.0 CBC Comment AUTO DIFF WBC Differential Diff Scan Differential Comment AUTO DIFF CONFIRMED Platelet Estimate Platelet Morphology Plt Morphology Comment Ovalocytes Acanthocytes (Spur) PT INR APTT Sodium 142 Potassium 3.6 Chloride 111 H Carbon Dioxide 23.9 Anion Gap 7 BUN 20 H Creatinine 0.69 Estimated GFR 114 Random Glucose 89 Calcium 7.3 L* Prot Corrected Calcium Phosphorus 2.6 Magnesium 1.5 Iron TIBC % Saturation Ferritin Total Bilirubin AST ALT Alkaline Phosphatase Ammonia Total Creatine Kinase Troponin I Total Protein Albumin 2.0 L Lxpxq-7-Nfyvbgcabpm Ceruloplasmin Lipase Tumor Marker AFP Urine Opiates Screen Ur Barbiturates Screen Ur Amphetamines Screen U Benzodiazepines Scrn Urine Cocaine Screen U Cannabinoids Screen Ethyl Alcohol [place] Screen Anti-Smooth Muscle Ab Tiss Transglutamin IgG Tiss Transglutamin IgA Hepatitis A IgM Ab Hep Bs Antigen Hep B Core IgM Ab Hep C IgG Ab 04/24/18 04/25/18 04/25/18 23:07 06:35 06:35 WBC 6.5 RBC 2.30 L Hgb 8.5 L 8.6 L Hct 24.4 L 24.6 L MCV 107.0 H MCH 37.4 H MCHC 35.0 RDW 14.6 Plt Count 59 L MPV 9.3 Prelim Diff (Auto) Slide review pending Neut % (Auto) 67.4 Lymph % (Auto) 20.7 [place] % (Auto) 8.8 H Eos % (Auto) 2.7 Baso % (Auto) 0.4 Neut # (Auto) 4.4 Lymph # (Auto) 1.3 [place] # (Auto) 0.6 Eos # (Auto) 0.2 Baso # (Auto) 0.0 CBC Comment WBC Differential . Diff Scan Auto diff confirmed Differential Comment . Platelet Estimate Low L Platelet Morphology Normal Plt Morphology Comment Ovalocytes Acanthocytes (Spur) 1+ H PT INR APTT Sodium 139 Potassium 3.4 L Chloride 106 Carbon Dioxide 23.4 Anion Gap 10 BUN 12 Creatinine 0.65 Estimated GFR Greater than 89 Random Glucose 89 Calcium 7.2 L* Prot Corrected Calcium 7.9 L Phosphorus Magnesium Iron TIBC % Saturation Ferritin Total Bilirubin 8.3 H AST 62 H ALT 31 Alkaline Phosphatase 47 Ammonia Total Creatine Kinase Troponin I Total Protein 5.8 L Albumin 1.9 L Vgvvn-8-Tqyrciyyggo Ceruloplasmin Lipase Tumor Marker AFP Urine Opiates Screen Ur Barbiturates Screen Ur Amphetamines Screen U Benzodiazepines Scrn Urine Cocaine Screen U Cannabinoids Screen Ethyl Alcohol EVERTON Screen Anti-Smooth Muscle Ab Tiss Transglutamin IgG Tiss Transglutamin IgA Hepatitis A IgM Ab Hep Bs Antigen Hep B Core IgM Ab Hep C IgG Ab <Mickey Schwarz - Last Filed: 04/25/18 17:14> Assessment and Plan (1) GIB (gastrointestinal bleeding) Status: Acute Code(s): K92.2 - Gastrointestinal hemorrhage, unspecified (2) Hematemesis with nausea Status: Acute Code(s): K92.0 - Hematemesis (3) Melena Status: Acute Code(s): K92.1 - Melena (4) Alcoholic cirrhosis of liver Status: Acute Code(s): K70.30 - Alcoholic cirrhosis of liver without ascites - Plan History of alcoholic cirrhosis Nausea with hematemesis Portal hypertensive gastropathy Slightly high AFP 8.2, probably secondary to cirrhosis Thrombocytopenia secondary to cirrhosis Alcoholic cirrhosis patient has continued to drink 4-6 whiskey drinks a day, history of hep C Noted negative EVERTON and ASMA, AMA pending 04/25/2018 patient continues to have generalized weakness and drowsiness but did respond to verbal stimuli this morning still complaining of some mild nausea but no emesis Noted EGD on 629 showing esophagitis and gastritis varices in the upper abdomen , portal hypertensive gastropathy found in the gastric body and fundus. Current hemoglobin 8.6. Hemochromatosis labs pending Plan diet clear liquids Colonoscopy Thursday Currently patient is prepping with GoLYTELY Monitor labs with special attention to hemoglobin Supportive care Further recommendations to follow once colonoscopy complete Encouraged patient to increase activity and be up in chair Patient was seen per catrachoelf and Dr. Schwarz, note was written on his behalf <Marianne Ramirez - Last Filed: 04/25/18 16:58> (1) GIB (gastrointestinal bleeding) Status: Acute Code(s): K92.2 - Gastrointestinal hemorrhage, unspecified (2) Hematemesis with nausea Status: Acute Code(s): K92.0 - Hematemesis (3) Melena Status: Acute Code(s): K92.1 - Melena (4) Alcoholic cirrhosis of liver Status: Acute Code(s): K70.30 - Alcoholic cirrhosis of liver without ascites - Plan No bleeding, colonoscopy tomorrow - Attending Attestation The exam, history, and the medical decision-making described in the above note were completed with the assistance of the mid-level provider. I reviewed and agree with the findings presented. I attest that I had a [id number] encounter with the patient on the same day, and personally performed and documented my assessment and findings in the medical record. <Mickey Schwarz - Last Filed: 04/25/18 17:14>
[2018-04-26] MEDS: LORazepam 1 MG Tablet PO PRN (03:33)
[2018-04-26] MEDS: Octreotide Inj 500 MCG in Sodium Chlor 0.9% Inj 500 ML IV.SIG SCH (03:36)
[2018-04-26] MEDS ORDERED: Chlorhexidine Gluconate 2% 1 Pack (2 Cloths) TOPICAL SCH (04:15)
[2018-04-26] MEDS ORDERED: Sodium Chlor 0.9% Inj 500 ML IV.SIG SCH (05:00)
[2018-04-26] MEDS: Pantoprazole Inj 40 MG Vial IV.PUSH SCH ×2 (10:17→20:07)
[2018-04-26] MEDS: Multivitamin/Minerals Therapeutic Tablet PO SCH (10:18)
[2018-04-26] MEDS: Folic Acid 1 MG Tablet PO SCH (10:18)
[2018-04-26] MEDS: Sod Chloride 0.9% Inj 1,000 ML IV.SIG SCH (12:06)
--- NOTE | 2018-04-26 16:20 | GIPROC ---
[facility] [address] [facility] [place]. [facility], [address] COLONOSCOPY PROCEDURE REPORT EXAM DATE: 04/26/2018 PATIENT NAME: Bulmaro Wang MR #: [id number] BIRTHDATE: 1950 ENDOSCOPIST: Polly Hernandez MD ORDER #: [id number] [employer] DRIVER: Giovany Solano and Deya Banda STATUS: inpatient INDICATIONS: The patient is a 68 yr old male here for a colonoscopy due to anemia, gi bleeding PROCEDURE PERFORMED: Colonoscopy with biopsy MEDICATIONS: None and Per Anesthesia. PREP QUALITY: poor PREP TYPE:Other: ESTIMATED BLOOD LOSS: None CONSENT: The patient understands the risks and benefits of the procedure and understands that these risks include, but are not limited to: sedation, allergic reaction, infection, perforation and/or bleeding. Alternative means of evaluation and treatment include, among others: physical exam, x-rays, and/or surgical intervention. The patient elects to proceed with this endoscopic procedure. medical equipment was checked for proper function. Hand hygiene and appropriate measures for infection prevention was taken. After the risks, benefits and alternatives of the procedure were thoroughly explained, Informed consent was verified, confirmed and timeout was successfully executed by the treatment team. A digital exam revealed external hemorrhoids The Pentax [id number] endoscope was introduced through the anus and advanced to the cecum, which was identified by both the appendix and ileocecal valve. The instrument was then slowly withdrawn as the colon was fully examined. COLON FINDINGS: Diverticulosis sigmoid,descending polyp diminutive hepatic flexure-5 mm-cold biopsy. Retroflexed views revealed internal hemorrhoids and Retroflexed views revealed small internal hemorrhoids The scope was then completely withdrawn from the patient and the procedure terminated. PROCEDURE WITHDRAWAL TIME:6minutes ADVERSE EVENTS: There were no complications. IMPRESSIONS: 1. Diverticulosis sigmoid,descending polyp diminutive hepatic flexure-5 mm-cold biopsy 2. Retroflexed views revealed internal hemorrhoids 3. Retroflexed views revealed small internal hemorrhoids 4. Revealed external hemorrhoids RECOMMENDATIONS: 1. Await biopsy results. Biopsy results will not be ready for 7-10 days. If you don't hear from us in two weeks, call our office for results. 2. Benefiber 2 tsp daily 3. Probiotics from any [facility] or [employer] food store 4. Yearly rectal exams RECALL: Return 3 months Colonoscopy Polly Hernandez MD eSigned: Polly Hernandez MD 04/26/2018 4:20 PM cc:
[2018-04-26] MEDS ORDERED: Phenylephrine/NS 1000 MCG/10ML Syringe IV.PUSH ONE (17:07)
[2018-04-26] MEDS ORDERED: Lidocaine PF 1% Inj 5 ML Syringe INFILTRATN ONE (17:07)
[2018-04-27] MEDS: LORazepam 1 MG Tablet PO PRN (04:12)
[2018-04-27] MEDS: Sod Chloride 0.9% Inj 1,000 ML IV.SIG SCH ×3 (07:38→13:39)
[2018-04-27] MEDS: Octreotide Inj 500 MCG in Sodium Chlor 0.9% Inj 500 ML IV.SIG SCH ×2 (07:39→13:39)
[2018-04-27] MEDS: Folic Acid 1 MG Tablet PO SCH (09:36)
[2018-04-27] MEDS: Multivitamin/Minerals Therapeutic Tablet PO SCH (09:36)
--- NOTE | 2018-04-27 09:42 | P.PN ---
Subjective Interval history: late entry DOS 04/26/18 Nursing denies any deterioration since last night. Patient underwent colonoscopy without complications. No obvious sources of bleeding were noted. Still waiting on physical therapy to evaluate the patient. Reports "seeing people" that are not there. Denies having any homicidal or suicidal thoughts or any encouragement from such hallucinations Physical Exam Vital signs: Vital Signs 04/26/18 12:00 04/26/18 16:00 04/26/18 20:00 Temperature 97.5 F L 97.2 F L 98 F Pulse Rate 88 82 76 Respiratory Rate 16 18 20 Blood Pressure 109/60 113/71 105/51 L Pulse Oximetry 92 L 92 L 94 L 04/26/18 23:00 04/27/18 00:00 04/27/18 04:00 Temperature 97.6 F 97.4 F L Pulse Rate 80 85 82 Respiratory Rate 20 20 Blood Pressure 118/63 101/59 L Pulse Oximetry 94 L 95 04/27/18 08:00 Temperature 97.3 F L Pulse Rate 78 Respiratory Rate 20 Blood Pressure 103/55 L Pulse Oximetry 92 L Intake & Output 04/26/18 04/27/18 04/27/18 18:59 06:59 18:59 Intake Total 1400 / 1400 Output Total 500 / 500 Balance 900 / 900 Weight 78.4 kg Intake: IV 1000 / 1000 NS Inj 1,000 ML @ 100 mls/hr IV 1000 / 1000 .SIG .Q10H NIKHIL Rx#:[id number] Anesthesia Amount 400 / 400 Output: Urine 500 / 500 Other: # Voids 2 Date of Last Bowel Movement 04/25/18 04/26/18 # Bowel Movements 2 Narrative: Abdomen soft, nontender, nondistended Lying in bed, awake, alert, no acute distress Results - Labs CBC & Chem 7: 04/25/18 06:35 04/25/18 06:35 Assessment and Plan - Plan //GI bleed -Status post EGD, gastritis and portal hypertensive gastropathy was noted -Colonoscopy neg for acute bleeding, did have some diverticulosis. Switch over to p.o. Protonix // Alcoholic cirrhosis Recommend alcohol cessation Follow-up as outpatient = GI following. Appreciate assistance. // Alcohol abuse Thiamine/folate/multivitamins CIWA protocol (scoring not high enough to receive any Ativan) Monitor for signs of withdrawal //Hepatic encephalopathy. improving, continue lactulose. SCDs given recent bleeding
--- NOTE | 2018-04-27 11:46 | P.DS ---
Date of admission: 04/22/18 04:49 Primary care physician: No Primary Care Physician Brief History from admission: 68-year-old male with a past medical history significant for alcoholic cirrhosis presents the emergency department for the evaluation of hematemesis and melena. The patient reports he has been having dark, bloody stools for months. He states that today he started to have coffee-ground emesis with blood streaks in it. He endorses being dizzy and lightheaded. He reports that he drinks between 4-7 whiskey drinks daily. He states he has abdominal pain that is diffusely tender and requests food stating that he is hungry and has not eaten all day. He denies any chest pain or shortness of breath. No fevers/ chills. No lateralizing signs/symptoms. DS: Diagnosis - Discharge Diagnosis (1) Hematemesis with nausea Status: Acute (2) Alcoholic cirrhosis of liver Status: Acute DS: Summary Hospital Course: Patient was admitted, started on IV Protonix. GI performed an EGD which showed substantial gastritis and esophagitis with small distal varix. Patient also had colonoscopy performed which showed nonbleeding diverticulosis. Patient was tolerating p.o. intake well. 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 Will start on psychotropic medications. Patient has met maximal benefit from hospitalization is clinically stable for discharge. - Time Spent with Patient Total time spent providing and/or coordinating discharge services: Greater than 30 minutes Exam Vital signs: Vital Signs 04/26/18 12:00 04/26/18 16:00 04/26/18 20:00 Temperature 97.5 F L 97.2 F L 98 F Pulse Rate 88 82 76 Respiratory Rate 16 18 20 Blood Pressure 109/60 113/71 105/51 L Pulse Oximetry 92 L 92 L 94 L 04/26/18 23:00 04/27/18 00:00 04/27/18 04:00 Temperature 97.6 F 97.4 F L Pulse Rate 80 85 82 Respiratory Rate 20 20 Blood Pressure 118/63 101/59 L Pulse Oximetry 94 L 95 04/27/18 08:00 Temperature 97.3 F L Pulse Rate 78 Respiratory Rate 20 Blood Pressure 103/55 L Pulse Oximetry 92 L Intake & Output 04/26/18 04/27/18 04/27/18 18:59 06:59 18:59 Intake Total 1400 / 1400 Output Total 500 / 500 Balance 900 / 900 Weight 78.4 kg Intake: IV 1000 / 1000 NS Inj 1,000 ML @ 100 mls/hr IV 1000 / 1000 .SIG .Q10H NIKHIL Rx#:[id number] Anesthesia Amount 400 / 400 Output: Urine 500 / 500 Other: # Voids 2 Date of Last Bowel Movement 04/25/18 04/26/18 # Bowel Movements 2 Narrative: awake, alert, NAD unlabored breathing, abd soft, NT,ND Results Procedures completed during hospitalization: colonoscopy and EGD Pending studies at discharge: Pending at discharge 04/26/18 Surgical [PTH] Routine Discharge Plan - Discharge Disposition Patient Disposition: Discharge Home - Discharge Condition Condition: Stable - Discharge Order Discharge Orders: Discharge Order (Routine); Ordered 04/27/18 Ordered By: Duran Moulton - Discharge Details Anticipated Discharge Date: 04/27/18 - Physicians Team Primary Care Provider: Primary Care Toshia Zimmer Attending Provider: Duran Moulton Other Providers: Mickey Schwarz MD ; Omar Salazar MD - Rxs /Orders / Referrals /Forms Prescriptions: No Action folic acid 1 mg Tablet 1 mg PO DAILY pantoprazole 40 mg Tablet,Delayed Release (Dr/Ec) 40 mg PO BID risperidone 1 mg Tablet 1 mg PO BID thiamine HCl (vitamin B1) 100 mg Tablet 100 mg PO DAILY Ambulatory Orders / Order Sets / DME: Walker Giuseppe (Routine) Location: Determined by Patient Ordered By: Duran Moulton Referrals: [facility] [Outside] - See Instructions (need referral to be seen call for appt.) Primary Care Provider [Outside] - See Instructions (please call [phone])[phone]) Psychiatrist [Outside] - See Instructions (1 week f/u appt. 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 Avoid second hand smoke. You may reach the 24-hour crisis hotline for domestic abuse at .
--- NOTE | 2018-04-27 15:13 | P.CONPSY ---
Provisional Diagnosis Admission Date: April 22, 2018 04:49 [place] I.: Unspecified psychosis, r/o alcohol hallucinosis History of Present Illness Service: Medicine Primary Care Provider: No Primary Care Physician History of Present Illness: The patient is a 68-year-old man, domiciled along in [facility], single, retired, supported by Social Security, he denies previous psychiatric history, denies previous psychiatric hospitalizations, denies suicide attempts, medical history of hypertension, hepatic encephalopathy, cirrhosis, severe alcohol use disorder, hospitalized due to GI bleeding, cirrhosis, hepatic encephalopathy. Consulted to psychiatry due to persistent visual hallucinations. On my psychiatric evaluation I find a patient that is calm, cooperative and pleasant. The patient reports to be in a good mood, motivated to be discharged and get better. The patient is able to express his understanding of how important for him is to quit alcohol. He denies suicidal enemas ideation, to be quite future oriented. He does report that he has being overwhelmed lately due to recurrent visual hallucinations. He describes the hallucinations as episodic, very colorful, usually mute, known unknown people coming inside the room, at times anxiety provoking, but most of the time he is insightful about the nature of the hallucinations. Denies auditory hallucinations. The patient does not think any thought process disorder, he is logical, coherent and relevant. No paranoia, no ideas of reference present. He denies the use of illegal drugs. Reports daily use of alcohol. Review of Systems Constitutional: Denies anorexia, Denies body ache(s), Denies chills, Denies daytime sleepiness, Denies excessive sweating, Denies fatigue, Denies fever(s), Denies headache(s), Denies increased appetite, Denies lack of energy, Denies malaise, Denies night sweats, Denies weakness, Denies weight gain, Denies weight loss, Denies other Cardiovascular: Denies chest pain, Denies chest pain at rest, Denies chest pain with activity, Denies excessive sweating, Denies fainting, Denies fast heart rate, Denies foot swelling, Denies generalized swelling, Denies irregular heart rhythm, Denies leg pain with activity, Denies leg sores, Denies leg swelling, Denies lightheadedness, Denies radiating jaw, neck or arm pain, Denies rapid, pounding, or irregular heartbeat, Denies shortness of breath, Denies shortness of breath with activity, Denies shortness of breath when lying down, Denies shortness of breath causing sudden awakening, Denies slow heart rate, Denies other Respiratory: Denies change in phlegm color, Denies chest congestion, Denies cough, Denies coughing up blood, Denies excessive phlegm production, Denies pain on inspiration, Denies pain with cough, Denies shortness of breath, Denies shortness of breath with activity, Denies snoring, Denies stridor, Denies wheezing, Denies other Gastrointestinal: Denies abdominal pain, Denies belching, Denies black, tarry stools, Denies bloating, Denies bright, red blood in stools, Denies change in bowel habits, Denies constant urge to pass stool, Denies change in stools, Denies coffee ground vomit, Denies constipation, Denies cramping, Denies difficulty swallowing, Denies excessive passing of gas, Denies feeling full early, Denies heartburn, Denies incontinent of stools, Denies loose stools, Denies nausea, Denies pain with swallowing, Denies vomiting, Denies vomiting blood, Denies other Musculoskeletal: Denies abnormal walking, Denies back pain, Denies body aches, Denies decreased muscle mass, Denies deformity, Denies joint pain, Denies joint swelling, Denies limited joint movement, Denies loss of height, Denies muscle cramps, Denies muscle weakness, Denies neck pain, Denies numbness, Denies radiating pain into limb, Denies stiffness, Denies tingling, Denies other Neurologic: Denies abnormal hearing, Denies abnormal movements, Denies abnormal speech, Denies abnormal walking, Denies behavioral changes, Denies burning sensations, Denies confusion, Denies dizziness, Denies fainting, Denies frequent falls, Denies headache(s), Denies lack of coordination, Denies localized weakness, Denies loss of vision, Denies memory loss, Denies numbness, Denies other visual disturbances, Denies radiating pain, Denies restless legs, Denies convulsions, Denies seizure-like activity, Denies sensory deficit, Denies tingling, Denies tingling/numbness/burning sensations, Denies tremor(s), Denies unsteadiness, Denies weakness, Denies other Psychiatric: Reports other (Visual hallucinations) Medications and Allergies Active Medications: Active Medications Chlorhexidine Gluconate (Chlorhexidine 2% Cloth) 3 pack TOPICAL CHOKER SETTER [facility] Stop: 04/29/18 04:15 Chlorhexidine Gluconate (Chlorhexidine 2% Cloth) 3 pack TOPICAL CHOKER SETTER PRN PRN Reason: SEE LABEL COMMENTS Stop: 04/30/18 01:28 Flumazenil (Romazecon Inj) 0.2 mg IV.PUSH Q1M PRN PRN Reason: OVERSEDATION Folic Acid (Folic Acid) 1 mg PO DAILY [facility] Last Admin: 04/27/18 09:36 Dose: 1 mg Lactated Ringer's (Lr 1000 Ml Inj) 1,000 mls @ 30 mls/hr IV.SIG .Q24H [facility] Stop: 04/29/18 04:15 Last Admin: 04/27/18 07:40 Dose: Not Given Sodium Chloride (Ns Inj) 500 mls @ 30 mls/hr IV.SIG .Q10H [facility] Stop: 04/29/18 04:15 Octreotide Acetate 500 mcg/ (Sodium Chloride) 500.5 mls @ 25 mls/hr IV.SIG .Q20H2M [facility] Last Infusion: 04/27/18 13:42 Dose: Infused Sodium Chloride (Ns Inj) 1,000 mls @ 100 mls/hr IV.SIG .Q10H [facility] Last Infusion: 04/27/18 13:41 Dose: Infused Lactulose (Lactulose Liq) 30 ml PO QID [facility] Last Admin: 04/27/18 12:40 Dose: 30 ml Lorazepam (Ativan) 1 mg PO Q4H PRN PRN Reason: for CIWA 8-10 Last Admin: 04/27/18 04:12 Dose: 1 mg Lorazepam (Ativan) 2 mg PO Q2H PRN PRN Reason: for CIWA 11-14 Lorazepam (Ativan Inj) 2 mg IV.PUSH Q2H PRN PRN Reason: for CIWA 11-14 Lorazepam (Ativan Inj) 2 mg IV.PUSH Q1H PRN PRN Reason: for CIWA 15-20 Lorazepam (Ativan Inj) 2 mg IV.PUSH Q15M PRN PRN Reason: for CIWA > 20 Lorazepam (Ativan Inj) 1 mg IV.PUSH Q4H PRN PRN Reason: for CIWA 8-10 Multivitamins/Minerals (Theragran-M) 1 tab PO DAILY [facility] Last Admin: 04/27/18 09:36 Dose: 1 tab Nitroglycerin (Nitrostat Sl) 0.4 mg SL Q5M PRN PRN Reason: CHEST PAIN Pantoprazole Sodium (Protonix) 40 mg PO BID [facility] Last Admin: 04/27/18 09:40 Dose: 40 mg Povidone Iodine (Betadine 5% Antisepsis Kit) 1 applicatio EACH NARE CHOKER SETTER [facility] Stop: 04/29/18 04:15 Povidone Iodine (Betadine 5% Antisepsis Kit) 1 applicatio EACH NARE CHOKER SETTER PRN PRN Reason: SEE LABEL COMMENTS Prochlorperazine Edisylate (Compazine Inj) 5 mg IV.PUSH Q4H PRN PRN Reason: NAUSEA OR VOMITING Risperidone (Risperdal) 1 mg PO BID [facility] Sodium Chloride (Ns Flush) 2 ml IV.FLUSH UNSCH PRN PRN Reason: FLUSH AFTER USING IV ACCESS Sodium Chloride (Ns Flush) 2 ml IV.FLUSH BID [facility] Last Admin: 04/27/18 09:43 Dose: Not Given Thiamine HCl (Vitamin B1) 100 mg PO DAILY [facility] Last Admin: 04/27/18 09:37 Dose: 100 mg Allergies Allergy/AdvReac Type Severity Reaction Status Date / Time *MDRO Multi-Drug Resistant AdvReac Unknown Uncoded 04/22/18 00:20 Organism Home Medications Medication Instructions Recorded Confirmed Type No Known Home Medications 04/24/18 04/24/18 History Exam Vital signs: Vital Signs 04/26/18 16:00 04/26/18 20:00 04/26/18 23:00 Temperature 97.2 F L 98 F Pulse Rate 82 76 80 Respiratory Rate 18 20 Blood Pressure 113/71 105/51 L Pulse Oximetry 92 L 94 L 04/27/18 00:00 04/27/18 04:00 04/27/18 08:00 Temperature 97.6 F 97.4 F L 97.3 F L Pulse Rate 85 82 78 Respiratory Rate 20 20 20 Blood Pressure 118/63 101/59 L 103/55 L Pulse Oximetry 94 L 95 92 L 04/27/18 12:00 Temperature 97.7 F Pulse Rate 90 Respiratory Rate 20 Blood Pressure 99/59 L Pulse Oximetry Intake & Output 04/26/18 04/27/18 04/27/18 18:59 06:59 18:59 Intake Total 1400 / 1400 500.5 / 500.5 Output Total 500 / 500 Balance 900 / 900 500.5 / 500.5 Weight 78.4 kg Intake: IV 1000 / 1000 500.5 / 500.5 SandoSTATIN Inj 500 MCG In NS 500.5 / 500.5 Inj 500 ML @ 25 mls/hr IV.SIG . Q20H2M NIKHIL Rx#:[id number] NS Inj 1,000 ML @ 100 mls/hr IV 1000 / 1000 0 / 0 .SIG .Q10H NIKHIL Rx#:[id number] Anesthesia Amount 400 / 400 Output: Urine 500 / 500 Other: # Voids 2 Date of Last Bowel Movement 04/25/18 04/26/18 04/26/18 # Bowel Movements 2 Mental Status Examination Appearance: Appropriate Consciousness: Alert Orientation: x4 Motor Activity: Normal gait Speech: Unremarkable Language: Adequate Fund of Knowledge: Adequate Memory: Unremarkable Mood: Appropriate Affect: Appropriate Thought Process & Associations: Intact Thought Content: Appropriate Hallucination Type: Visual Delusion Type: None Suicidal Ideation: No Suicidal Plan: No Suicidal Intention: No Homicidal Ideation: No Homicidal Plan: No Homicidal Intention: No Insight: Adequate Judgment: Adequate Assessment and Plan - Assessment (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 The patient reports that most of the time he is not distressed about this perceptual disturbances, but sometimes is difficult for him to sort the reality. This presentation could be the result of alcohol hallucinosis. Visual hallucinations are usually not secondary to a primary psychotic condition. But, the patient would benefit of a low dose of antipsychotic, in this case Risperdal 1 mg twice daily will be quite helpful. He does not meet criteria for involuntary psychiatric admission. Coordinate with outpatient care the monitorization of the symptoms. Justification for Continued Inpatient Stay: No psychiatric admission indicated
--- NOTE | 2018-04-27 16:17 | P.PNGI ---
Subjective Interval history: Pt fully clothed and standing in doorway, anxious for discharge. No GI complaints at this time. Denies nausea, vomiting, abdominal pain. Reports BM since colonoscopy has been normal. <Hallie Henley - Last Filed: 04/27/18 16:10> Physical Exam Vital signs: Vital Signs 04/26/18 20:00 04/26/18 23:00 04/27/18 00:00 Temperature 98 F 97.6 F Pulse Rate 76 80 85 Respiratory Rate 20 20 Blood Pressure 105/51 L 118/63 Pulse Oximetry 94 L 94 L 04/27/18 04:00 04/27/18 08:00 04/27/18 12:00 Temperature 97.4 F L 97.3 F L 97.7 F Pulse Rate 82 78 90 Respiratory Rate 20 20 20 Blood Pressure 101/59 L 103/55 L 99/59 L Pulse Oximetry 95 92 L Intake & Output 04/26/18 04/27/18 04/27/18 18:59 06:59 18:59 Intake Total 1400 / 1400 500.5 / 500.5 Output Total 500 / 500 Balance 900 / 900 500.5 / 500.5 Weight 78.4 kg Intake: IV 1000 / 1000 500.5 / 500.5 SandoSTATIN Inj 500 MCG In NS 500.5 / 500.5 Inj 500 ML @ 25 mls/hr IV.SIG . Q20H2M NIKHIL Rx#:[id number] NS Inj 1,000 ML @ 100 mls/hr IV 1000 / 1000 0 / 0 .SIG .Q10H NIKHIL Rx#:[id number] Anesthesia Amount 400 / 400 Output: Urine 500 / 500 Other: # Voids 2 Date of Last Bowel Movement 04/25/18 04/26/18 04/26/18 # Bowel Movements 2 - Constitutional no acute distress - Routine HEENT Exam Head: Present: normocephalic, atraumatic - Routine Respiratory Exam Present: CTA bilaterally. Absent: accessory muscle use - Routine Cardiovascular Exam Present: RRR - Routine Abdominal Exam Present: soft, normoactive bowel sounds. Absent: tenderness, distended, rebound , guarding - Routine Skin Exam Present: dry, warm - Routine Neurological Exam Present: alert, oriented X3 <Hallie Henley - Last Filed: 04/27/18 16:10> Vital signs: Vital Signs 04/26/18 20:00 04/26/18 23:00 04/27/18 00:00 Temperature 98 F 97.6 F Pulse Rate 76 80 85 Respiratory Rate 20 20 Blood Pressure 105/51 L 118/63 Pulse Oximetry 94 L 94 L 04/27/18 04:00 04/27/18 08:00 04/27/18 12:00 Temperature 97.4 F L 97.3 F L 97.7 F Pulse Rate 82 78 90 Respiratory Rate 20 20 20 Blood Pressure 101/59 L 103/55 L 99/59 L Pulse Oximetry 95 92 L Intake & Output 04/26/18 04/27/18 04/27/18 18:59 06:59 18:59 Intake Total 1400 / 1400 500.5 / 500.5 Output Total 500 / 500 Balance 900 / 900 500.5 / 500.5 Weight 78.4 kg Intake: IV 1000 / 1000 500.5 / 500.5 SandoSTATIN Inj 500 MCG In NS 500.5 / 500.5 Inj 500 ML @ 25 mls/hr IV.SIG . Q20H2M NIKHIL Rx#:[id number] NS Inj 1,000 ML @ 100 mls/hr IV 1000 / 1000 0 / 0 .SIG .Q10H NIKHIL Rx#:[id number] Anesthesia Amount 400 / 400 Output: Urine 500 / 500 Other: # Voids 2 Date of Last Bowel Movement 04/25/18 04/26/18 04/26/18 # Bowel Movements 2 <Polly Hernandez - Last Filed: 04/27/18 18:26> Results - Labs CBC & Chem 7: 04/25/18 06:35 04/25/18 06:35 <Hallie Henley - Last Filed: 04/27/18 16:10> - Labs CBC & Chem 7: 04/25/18 06:35 04/25/18 06:35 <Polly Hernandez - Last Filed: 04/27/18 18:26> Assessment and Plan (1) GIB (gastrointestinal bleeding) Status: Acute Code(s): K92.2 - Gastrointestinal hemorrhage, unspecified (2) Hematemesis with nausea Status: Acute Code(s): K92.0 - Hematemesis (3) Melena Status: Acute Code(s): K92.1 - Melena (4) Alcoholic cirrhosis of liver Status: Acute Code(s): K70.30 - Alcoholic cirrhosis of liver without ascites - Plan Assessment: - Hematemesis and melena/anemia- hh stable, no bleeding today pt with hx of alcoholic cirrhosis, The patient reports he has been having dark , bloody stools for months. He endorses loose stools for months. S/P EGD on 04/23/18 There was LA Class A esophagitis noted. There was erythematous gastritis in the gastric antrum. Portal hypertensive gastropathy was found in the gastric body and gastric fundus. Normal duodenal mucosa in the bulb and second portion of the duodenum. CT of A/P showed hepatomegaly with evidence of portal hypertension. There appear to be varices in upper abd. Nonspecific gall bladder wall thickening. low plt, elevated LFTs consistent with alcohol intake. AFP 8.2, A1A 121, Ceruloplasmin-19 Ferritin-619 Iron-167 TIBC-172 %sat-97 [place], AMA, ASMA negative. Celiac panel negative. Last colonoscopy was 10 yrs ago by report. - Slightly High AFP 8.2- likely secondary to cirrhosis, no evidence of HCC on recent CT - Thrombocytopenia- Secondary to above - Alcoholic cirrhosis- he drinks between 4-7 whiskey drinks daily, hx of hep-C and that could be a factor (-) [place], ASMA (-), AMA P, negative celiac panel. high Fe and iron saturation likely to alcohol intake - Hep-C- tx naive- genotype 1 a, RNA 93,300 - Alcohol abuse- He reports that he drinks between 4-7 whiskey drinks daily. counselled on cessation. (04/27) S/P colonoscopy yesterday --> Diverticulosis sigmoid,descending. Polyp diminutive hepatic flexure-5 mm-cold biopsy. Internal and external hemorrhoids H/H stable overnight. Pt planned for discharge today, fully clothed and standing at doorway awaiting paperwork. Plan: Treatment for Hep C outpatient ETOH cessation Repeat EGD in 6 months Probiotics Avoid NSAIDs Protonix Pt being discharged, have him follow up with GI in 1-2 weeks Pt has been seen and examined by myself and Dr. Hernandez and this note is written on her behalf <Hallie Henley - Last Filed: 04/27/18 16:10> (1) GIB (gastrointestinal bleeding) Status: Acute Code(s): K92.2 - Gastrointestinal hemorrhage, unspecified (2) Hematemesis with nausea Status: Acute Code(s): K92.0 - Hematemesis (3) Melena Status: Acute Code(s): K92.1 - Melena (4) Alcoholic cirrhosis of liver Status: Acute Code(s): K70.30 - Alcoholic cirrhosis of liver without ascites - Attending Attestation agree with above <Polly Hernandez - Last Filed: 04/27/18 18:26>
[2018-05-06 14:43] LABS: Specimen HFE WB Whole Blood
== END 2018-04-27 17:08 | disposition home or self-care (01) ==
LOC: N07 04:49
PROVIDERS: ADMIT Hospitalist; ATTEND Hospitalist

== ENCOUNTER 2018-04-27 19:05 | Observation (INO) ==
[2018-04-27 22:03] LABS: Baso % (Auto) 0.6 % (0.0-2.0); Eos # (Auto) 0.1 th/mm3 (0.0-0.4); Eos % (Auto) 0.9 % (0.0-4.0); Hematocrit 24.9 % (39.0-51.0); Hemoglobin 8.7 gm/dL (13.0-17.0); Lymph # (Auto) 1.2 th/mm3 (1.0-4.8); Lymph % (Auto) 18.4 % (9.0-44.0); Mean Corpuscular HGB Conc 34.8 % (32.0-36.0); Mean Corpuscular Hemoglobin 37.6 pg (27.0-34.0); Mean Corpuscular Volume 108.1 fL (80.0-100.0); Mean Platelet Volume 8.9 fL (7.0-11.0); Mono # (Auto) 1.2 th/mm3 (0.0-0.9); Neut # (Auto) 4.1 th/mm3 (1.8-7.7); Neut % (Auto) 62.1 % (16.0-70.0); Platelet Count 97 th/mm3 (150-450); Red Blood Count 2.31 mil/mm3 (4.50-5.90); Red Cell Distribution Width 15.8 % (11.6-17.2); White Blood Count 6.6 th/mm3 (4.0-11.0)
[2018-04-27 22:32] LABS: Platelet Morphology Normal (Normal)
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
[2018-04-28] MEDS ORDERED: Bisacodyl 10 MG Supp RECTAL PRN (00:38)
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
[2018-04-28] MEDS: Folic Acid 1 MG Tablet PO SCH (11:27)
[2018-04-29] MEDS ORDERED: Sod Chloride 0.9% Inj 1,000 ML IV.CONT SCH (08:46)
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
[2018-04-29] MEDS: Folic Acid 1 MG Tablet PO SCH (11:19)
[2018-04-29 12:35] LABS: Baso % (Auto) 0.7 % (0.0-2.0); Eos # (Auto) 0.1 th/mm3 (0.0-0.4); Eos % (Auto) 2.4 % (0.0-4.0); Hematocrit 27.9 % (39.0-51.0); Hemoglobin 9.6 gm/dL (13.0-17.0); Lymph # (Auto) 1.6 th/mm3 (1.0-4.8); Mean Corpuscular HGB Conc 34.5 % (32.0-36.0); Mean Corpuscular Hemoglobin 37.2 pg (27.0-34.0); Mean Corpuscular Volume 107.8 fL (80.0-100.0); Mean Platelet Volume 8.4 fL (7.0-11.0); Mono # (Auto) 0.8 th/mm3 (0.0-0.9); Mono % (Auto) 17.2 % (0.0-8.0); Neut # (Auto) 2.3 th/mm3 (1.8-7.7); Neut % (Auto) 46.7 % (16.0-70.0); Platelet Count 117 th/mm3 (150-450); Red Blood Count 2.58 mil/mm3 (4.50-5.90); Red Cell Distribution Width 16.6 % (11.6-17.2); White Blood Count 4.9 th/mm3 (4.0-11.0)
[2018-04-29 12:57] LABS: Albumin 1.9 g/dL (3.4-5.0); Anion Gap 10 meq/L (5-15); Aspartate Aminotransferase 70 U/L (15-37); Blood Urea Nitrogen 13 mg/dL (7-18); Calcium 7.7 mg/dL (8.5-10.1); Carbon Dioxide 23.8 meq/L (21.0-32.0); Chloride 105 meq/L (98-107); Glomerular Filtration Rate Greater Than 89 mL/min (>89); Glucose,Random 112 mg/dL (74-106); Sodium 139 meq/L (136-145)
[2018-04-29 13:01] LABS: Alanine Aminotransferase 42 U/L (12-78); Alkaline Phosphatase 68 U/L (45-117); Total Protein 6.2 g/dL (6.4-8.2)
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
--- NOTE | 2018-04-29 16:34 | P.AMA ---
AMA Note - AMA Note AMA Statement: Patient Bulmaro Wang has decided to leave the hospital against medical advice. This patient has the capacity to refuse care and understands the risks of leaving, including permanent disability and/or , and has had an opportunity to ask questions about his/her condition. The patient has been informed that he/she may return for care at any time, and follow up has been arranged/advised. - AMA Note Discharge Disposition: Left Against Medical Advice Patient Condition on Discharge: Fair
== END 2018-04-29 16:59 | disposition left against medical advice (07) ==
LOC: NEPC 19:05 → NEPHCDU 19:05 → NEDA 19:05 → NEPHCDU 04-28 01:45
PROVIDERS: ADMIT Hospitalist; ATTEND Hospitalist

== ENCOUNTER 2018-07-03 08:41 | Observation (INO) ==
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
[2018-07-03 09:52] LABS: Baso % (Auto) 0.5 % (0.0-2.0); Eos # (Auto) 0.1 th/mm3 (0.0-0.4); Eos % (Auto) 2.2 % (0.0-4.0); Hemoglobin 11.1 gm/dL (13.0-17.0); Lymph # (Auto) 1.6 th/mm3 (1.0-4.8); Lymph % (Auto) 30.3 % (9.0-44.0); Mean Corpuscular HGB Conc 35.8 % (32.0-36.0); Mean Corpuscular Volume 106.2 fL (80.0-100.0); Mean Platelet Volume 6.9 fL (7.0-11.0); Mono # (Auto) 0.5 th/mm3 (0.0-0.9); Mono % (Auto) 9.4 % (0.0-8.0); Neut % (Auto) 57.6 % (16.0-70.0); Platelet Count 146 th/mm3 (150-450); Red Blood Count 2.91 mil/mm3 (4.50-5.90); Red Cell Distribution Width 18.3 % (11.6-17.2); White Blood Count 5.2 th/mm3 (4.0-11.0)
[2018-07-03 10:04] LABS: Alanine Aminotransferase 29 U/L (12-78); Anion Gap 13 meq/L (5-15); Aspartate Aminotransferase 44 U/L (15-37); Calcium 8.2 mg/dL (8.5-10.1); Carbon Dioxide 24.5 meq/L (21.0-32.0); Chloride 97 meq/L (98-107); Glomerular Filtration Rate 84 mL/min (>89); Glucose,Random 157 mg/dL (74-106); Potassium 3.2 meq/L (3.5-5.1); Sodium 134 meq/L (136-145)
[2018-07-03 10:14] LABS: Alkaline Phosphatase 50 U/L (45-117); Blood Urea Nitrogen 13 mg/dL (7-18); Total Protein 6.4 g/dL (6.4-8.2)
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
[2018-07-03] MEDS ORDERED: Acetaminophen 325 MG Tablet PO PRN (22:19)
[2018-07-03] MEDS ORDERED: Bisacodyl 10 MG Supp RECTAL PRN (22:19)
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
[2018-07-04 05:04] LABS: Amphetamine Screen,Urine Neg (Neg); Barbiturate Screen,Urine Neg (Neg); Cannabinoid Screen,Urine Pos (Neg); Cocaine Screen,Urine Neg (Neg)
[2018-07-04 05:05] LABS: Opiate Screen,Urine Neg (Neg)
[2018-07-04] MEDS ORDERED: Potassium Chloride 25 MEQ Effervescent Tablet PO ONE (08:00)
[2018-07-04] MEDS: Senna/Docusate Sodium 8.6/50 MG Tablet PO SCH ×2 (08:49→20:13)
[2018-07-04] MEDS: oxyCODONE/Acetaminophen 10/325 Tablet PO PRN (08:53)
[2018-07-04] MEDS: Nystatin 100,000 UNITS/GM Powder 15 GM Bottle TOPICAL SCH ×4 (14:35→20:13)
[2018-07-05] MEDS: Senna/Docusate Sodium 8.6/50 MG Tablet PO SCH ×2 (08:43→23:02)
[2018-07-05] MEDS: Nystatin 100,000 UNITS/GM Powder 15 GM Bottle TOPICAL SCH ×4 (08:43→23:01)
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
[2018-07-06 09:58] LABS: Anion Gap 7 meq/L (5-15); Blood Urea Nitrogen 13 mg/dL (7-18); Calcium 7.7 mg/dL (8.5-10.1); Carbon Dioxide 28.2 meq/L (21.0-32.0); Chloride 98 meq/L (98-107); Glomerular Filtration Rate Greater Than 89 mL/min (>89); Glucose,Random 96 mg/dL (74-106); Sodium 133 meq/L (136-145)
[2018-07-06 10:00] LABS: Potassium 3.9 meq/L (3.5-5.1)
[2018-07-06] MEDS: Senna/Docusate Sodium 8.6/50 MG Tablet PO SCH ×2 (10:16→22:49)
[2018-07-06] MEDS: Nystatin 100,000 UNITS/GM Powder 15 GM Bottle TOPICAL SCH ×4 (10:17→22:48)
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
[2018-07-07] MEDS: Senna/Docusate Sodium 8.6/50 MG Tablet PO SCH ×2 (09:12→20:26)
[2018-07-07] MEDS: Nystatin 100,000 UNITS/GM Powder 15 GM Bottle TOPICAL SCH ×4 (09:13→21:08)
--- NOTE | 2018-07-07 14:53 | US ---
EXAM DATE: 07/07/2018 2:32 PM EDT AGE/SEX: 68 years / Male INDICATIONS: Ascites. Liver Failure. CLINICAL DATA: This is the patient's initial encounter. Patient reports that signs and symptoms have been present for 1 day and indicates a pain score of 1/10. MEDICAL/SURGICAL HISTORY: Cirrhosis. Back pain. Chest pain. Inguinal hernia. Liver disease. Ольга christophe. None. COMPARISON: [facility] [place], [place] ABDOMEN - LIVER, 04/19/2018. . FINDINGS: Masses: None Fluid Collections: Significant amount of free fluid is identified in the abdomen. A large pocket is i dentified in the right upper quadrant. Other: Advanced parenchymal hepatic disease characteristic of cirrhosis is noted. CONCLUSION: 1. Significant amount of ascites which would be amenable to paracentesis 2. Cirrhotic liver Electronically signed by: Mario Gil MD 07/07/2018 2:51 PM EDT
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
[2018-07-08 07:38] LABS: INR 1.9 Ratio; Prothrombin Time 18.8 sec (9.8-11.6)
[2018-07-08] MEDS: Nystatin 100,000 UNITS/GM Powder 15 GM Bottle TOPICAL SCH ×4 (08:09→21:11)
[2018-07-08] MEDS: oxyCODONE/Acetaminophen 10/325 Tablet PO PRN ×2 (08:09→13:07)
[2018-07-08] MEDS: Senna/Docusate Sodium 8.6/50 MG Tablet PO SCH ×2 (08:09→21:12)
--- NOTE | 2018-07-08 10:36 | US ---
EXAM DATE: 07/08/2018 9:43 AM EDT AGE/SEX: 68 years / Male INDICATIONS: Ascites. CLINICAL DATA: This is the patient's initial encounter. Patient reports that signs and symptoms have been present for 2 months and indicates a pain score of 2/10. MEDICAL/SURGICAL HISTORY: Cirrhosis. Inguinal hernia. Back pain. Inguinal hernia repair. COMPARISON: [facility] [place], [place] ABDOMEN LOWER LIMITED, 07/07/2018. . FLUID: Total volume of 2400 cc of clear, yellow fluid was removed. Fluid was sent to lab for ordered studies . . . TECHNIQUE: Ultrasound guidance for abdominal paracentesis. Paracentesis. The risks, benefits, and alternatives to ultrasound guided paracentesis were explained to the patient in detail including the risk of bleeding and infection. Written and verbal informed consent was obt ained. With the patient on the ultrasound table, ultrasound imaging was used to select the most appropriate approach for paracentesis. Overlying skin was prepped and draped in the usual sterile fashion and wi th a local anesthetic, a dermatotomy was made with an 11 blade scalpel. A 6 [place] [employer] ca theter was introduced into the peritoneal cavity and fluid was collected. Post procedure scanning reveals no hematoma or other complication. The patient tolerated the procedu re well and left the ultrasound suite in stable condition. CONCLUSION: 1. Uncomplicated diagnostic paracentesis. Electronically signed by: Deion Pierre MD 07/08/2018 10:34 AM EDT
[2018-07-08 10:50] LABS: Total Protein,Peritoneal Fluid 0.4 gm/dL
[2018-07-08 11:55] LABS: RBC,Peritoneal Fluid 10 /mm3 (0-0)
[2018-07-08 11:58] LABS: Mesothelial,Peritoneal Fluid 4 %; Neutrophils,Peritoneal Fluid 16 %
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
[2018-07-09 07:18] LABS: Baso % (Auto) 0.9 % (0.0-2.0); Eos # (Auto) 0.1 th/mm3 (0.0-0.4); Eos % (Auto) 1.7 % (0.0-4.0); Hematocrit 27.6 % (39.0-51.0); Hemoglobin 9.8 gm/dL (13.0-17.0); Lymph # (Auto) 1.4 th/mm3 (1.0-4.8); Mean Corpuscular HGB Conc 35.6 % (32.0-36.0); Mean Corpuscular Volume 106.9 fL (80.0-100.0); Mean Platelet Volume 7.5 fL (7.0-11.0); Mono # (Auto) 0.7 th/mm3 (0.0-0.9); Mono % (Auto) 15.6 % (0.0-8.0); Neut # (Auto) 2.4 th/mm3 (1.8-7.7); Neut % (Auto) 51.8 % (16.0-70.0); Platelet Count 109 th/mm3 (150-450); Red Blood Count 2.58 mil/mm3 (4.50-5.90); Red Cell Distribution Width 18.3 % (11.6-17.2); White Blood Count 4.6 th/mm3 (4.0-11.0)
[2018-07-09 07:41] LABS: Alanine Aminotransferase 22 U/L (12-78); Albumin 1.7 g/dL (3.4-5.0); Alkaline Phosphatase 75 U/L (45-117); Anion Gap 9 meq/L (5-15); Aspartate Aminotransferase 37 U/L (15-37); Blood Urea Nitrogen 15 mg/dL (7-18); Calcium 7.6 mg/dL (8.5-10.1); Carbon Dioxide 27.5 meq/L (21.0-32.0); Chloride 99 meq/L (98-107); Glomerular Filtration Rate Greater Than 89 mL/min (>89); Glucose,Random 83 mg/dL (74-106); Potassium 3.7 meq/L (3.5-5.1); Sodium 135 meq/L (136-145)
[2018-07-09] MEDS: Furosemide 40 MG Tablet PO SCH (08:39)
[2018-07-09] MEDS: Nystatin 100,000 UNITS/GM Powder 15 GM Bottle TOPICAL SCH ×4 (08:39→22:34)
[2018-07-09] MEDS: Senna/Docusate Sodium 8.6/50 MG Tablet PO SCH ×2 (08:39→22:33)
[2018-07-09] MEDS: oxyCODONE/Acetaminophen 10/325 Tablet PO PRN ×2 (08:42→22:31)
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
[2018-07-10] MEDS: Nystatin 100,000 UNITS/GM Powder 15 GM Bottle TOPICAL SCH ×4 (08:18→20:43)
[2018-07-10] MEDS: Senna/Docusate Sodium 8.6/50 MG Tablet PO SCH ×2 (08:18→20:43)
[2018-07-10] MEDS: Furosemide 40 MG Tablet PO SCH (08:18)
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
[2018-07-10] MEDS: oxyCODONE/Acetaminophen 10/325 Tablet PO PRN (12:19)
[2018-07-11] MEDS: Furosemide 40 MG Tablet PO SCH (08:07)
[2018-07-11] MEDS: Senna/Docusate Sodium 8.6/50 MG Tablet PO SCH ×2 (08:07→20:14)
[2018-07-11] MEDS: oxyCODONE/Acetaminophen 10/325 Tablet PO PRN ×2 (08:08→18:08)
[2018-07-11] MEDS: Nystatin 100,000 UNITS/GM Powder 15 GM Bottle TOPICAL SCH ×4 (08:09→20:13)
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
[2018-07-12] MEDS: oxyCODONE/Acetaminophen 10/325 Tablet PO PRN (07:11)
[2018-07-12] MEDS: Nystatin 100,000 UNITS/GM Powder 15 GM Bottle TOPICAL SCH ×4 (08:06→21:18)
[2018-07-12] MEDS: Furosemide 40 MG Tablet PO SCH (08:06)
[2018-07-12] MEDS: Senna/Docusate Sodium 8.6/50 MG Tablet PO SCH ×2 (08:06→21:17)
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
[2018-07-13] MEDS: oxyCODONE/Acetaminophen 10/325 Tablet PO PRN ×3 (05:05→20:12)
[2018-07-13 05:09] LABS: Baso % (Auto) 0.9 % (0.0-2.0); Eos # (Auto) 0.2 th/mm3 (0.0-0.4); Eos % (Auto) 3.5 % (0.0-4.0); Hematocrit 28.1 % (39.0-51.0); Hemoglobin 9.9 gm/dL (13.0-17.0); Lymph # (Auto) 2.2 th/mm3 (1.0-4.8); Lymph % (Auto) 49.4 % (9.0-44.0); Mean Corpuscular HGB Conc 35.1 % (32.0-36.0); Mean Corpuscular Hemoglobin 37.1 pg (27.0-34.0); Mean Corpuscular Volume 105.6 fL (80.0-100.0); Mean Platelet Volume 7.3 fL (7.0-11.0); Mono # (Auto) 0.7 th/mm3 (0.0-0.9); Mono % (Auto) 15.8 % (0.0-8.0); Neut # (Auto) 1.4 th/mm3 (1.8-7.7); Neut % (Auto) 30.4 % (16.0-70.0); Platelet Count 91 th/mm3 (150-450); Red Blood Count 2.66 mil/mm3 (4.50-5.90); Red Cell Distribution Width 17.4 % (11.6-17.2); White Blood Count 4.5 th/mm3 (4.0-11.0)
[2018-07-13 05:36] LABS: Albumin 1.6 g/dL (3.4-5.0); Anion Gap 8 meq/L (5-15); Blood Urea Nitrogen 10 mg/dL (7-18); Calcium 7.5 mg/dL (8.5-10.1); Carbon Dioxide 29.9 meq/L (21.0-32.0); Chloride 99 meq/L (98-107); Glomerular Filtration Rate Greater Than 89 mL/min (>89); Glucose,Random 89 mg/dL (74-106); Magnesium 1.8 mg/dL (1.5-2.5); Phosphorus 3.5 mg/dL (2.5-4.9); Potassium 3.5 meq/L (3.5-5.1); Sodium 137 meq/L (136-145)
[2018-07-13] MEDS: Furosemide 40 MG Tablet PO SCH (08:12)
[2018-07-13] MEDS: Nystatin 100,000 UNITS/GM Powder 15 GM Bottle TOPICAL SCH ×4 (08:12→20:12)
[2018-07-13] MEDS: Senna/Docusate Sodium 8.6/50 MG Tablet PO SCH ×2 (08:12→20:12)
[2018-07-13 08:56] LABS: Acanthocytes Occ; Eosinophils 3 % (0-4); Lymphocytes 53 % (9-44); Monocytes 11 % (0-8); Ovalocytes 1+
[2018-07-13 08:57] LABS: Platelet Morphology Normal (Normal); Smudge Cells Present; Spherocytes Occ
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
[2018-07-14] MEDS: oxyCODONE/Acetaminophen 10/325 Tablet PO PRN ×4 (02:07→20:14)
[2018-07-14] MEDS: Senna/Docusate Sodium 8.6/50 MG Tablet PO SCH ×2 (08:04→20:14)
[2018-07-14] MEDS: Furosemide 40 MG Tablet PO SCH (08:04)
[2018-07-14] MEDS: Nystatin 100,000 UNITS/GM Powder 15 GM Bottle TOPICAL SCH ×4 (08:05→20:15)
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
[2018-07-15 05:48] LABS: Albumin 1.8 g/dL (3.4-5.0); Anion Gap 7 meq/L (5-15); Blood Urea Nitrogen 8 mg/dL (7-18); Calcium 8.1 mg/dL (8.5-10.1); Carbon Dioxide 27.6 meq/L (21.0-32.0); Chloride 102 meq/L (98-107); Glomerular Filtration Rate Greater Than 89 mL/min (>89); Glucose,Random 112 mg/dL (74-106); Magnesium 1.9 mg/dL (1.5-2.5); Phosphorus 3.5 mg/dL (2.5-4.9); Potassium 4.1 meq/L (3.5-5.1); Sodium 137 meq/L (136-145)
[2018-07-15] MEDS: Nystatin 100,000 UNITS/GM Powder 15 GM Bottle TOPICAL SCH ×3 (08:31→20:10)
[2018-07-15] MEDS: Senna/Docusate Sodium 8.6/50 MG Tablet PO SCH ×2 (08:33→20:08)
[2018-07-15] MEDS: oxyCODONE/Acetaminophen 10/325 Tablet PO PRN (08:33)
[2018-07-15] MEDS: Furosemide 40 MG Tablet PO SCH (08:33)
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
[2018-07-16] MEDS: Furosemide 40 MG Tablet PO SCH (10:26)
[2018-07-16] MEDS: oxyCODONE/Acetaminophen 10/325 Tablet PO PRN ×2 (10:27→16:56)
[2018-07-16] MEDS: Senna/Docusate Sodium 8.6/50 MG Tablet PO SCH ×2 (10:27→21:13)
[2018-07-16] MEDS: Nystatin 100,000 UNITS/GM Powder 15 GM Bottle TOPICAL SCH ×4 (10:28→21:13)
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
[2018-07-17] MEDS: Nystatin 100,000 UNITS/GM Powder 15 GM Bottle TOPICAL SCH ×4 (08:09→20:08)
[2018-07-17] MEDS: Furosemide 40 MG Tablet PO SCH (08:10)
[2018-07-17] MEDS: Senna/Docusate Sodium 8.6/50 MG Tablet PO SCH ×2 (08:10→20:07)
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
[2018-07-18] MEDS: oxyCODONE/Acetaminophen 10/325 Tablet PO PRN ×4 (01:20→20:19)
[2018-07-18] MEDS: Furosemide 40 MG Tablet PO SCH (08:01)
[2018-07-18] MEDS: Nystatin 100,000 UNITS/GM Powder 15 GM Bottle TOPICAL SCH ×4 (08:02→20:17)
[2018-07-18] MEDS: Senna/Docusate Sodium 8.6/50 MG Tablet PO SCH ×2 (08:02→20:16)
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
[2018-07-19] MEDS: oxyCODONE/Acetaminophen 10/325 Tablet PO PRN ×3 (04:38→20:18)
[2018-07-19] MEDS: Nystatin 100,000 UNITS/GM Powder 15 GM Bottle TOPICAL SCH ×4 (09:04→20:20)
[2018-07-19] MEDS: Senna/Docusate Sodium 8.6/50 MG Tablet PO SCH ×2 (09:04→20:19)
[2018-07-19] MEDS: Furosemide 40 MG Tablet PO SCH (09:04)
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
[2018-07-20] MEDS: oxyCODONE/Acetaminophen 10/325 Tablet PO PRN (05:32)
[2018-07-20 08:53] VITALS: BP 112/57; PULSE 84; RESP 17; TEMP 97.8; O2SAT 95
[2018-07-20] MEDS: Nystatin 100,000 UNITS/GM Powder 15 GM Bottle TOPICAL SCH (08:58)
[2018-07-20] MEDS: Furosemide 40 MG Tablet PO SCH (08:58)
[2018-07-20] MEDS: Senna/Docusate Sodium 8.6/50 MG Tablet PO SCH (08:58)
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
== END 2018-07-20 10:50 | disposition home or self-care (01) ==
LOC: NEPD 08:41 → NEDA 08:41 → NEPFCDU 07-04 06:05 → N07 07-08 15:50
PROVIDERS: ADMIT Internal Medicine; ATTEND Internal Medicine

== ENCOUNTER 2018-10-14 16:44 | Inpatient (IN) ==
--- NOTE | 2018-10-14 17:39 | ED ---
HPI General Chief Complaint: Abdominal Pain Stated Complaint: ABD Pain Time Seen by Provider: 10/14/18 17:19 Source: patient and RN notes reviewed Mode of arrival: EMS Limitations: altered mental status History of Present Illness HPI narrative: 68-year-old male with past medical history of liver cirrhosis, alcohol abuse, depression presents to the emergency department via EMS for evaluation of abdominal pain, altered mental status. The patient knows his name and that he is at the hospital, but cannot answer other questions appropriately. The patient is unable to tell me when his pain started. Patient does state he lives alone. He states that he drinks alcohol "often". The patient reports shortness of breath, abdominal pain. He is jaundiced on my exam. Abdomen is distended. Moderate severity. MD complaint: Reports abdominal pain Onset (ago): unknown Pain Consistency: constant Location: Reports diffuse Severity: moderate Severity scale (1-10): 10 Relieving factors: nothing Exacerbating factors: nothing Context: Denies foreign travel, possible food poisoning, sick contacts, recent antibiotic use, recent surgery/procedure, recent injury and history of similar episodes Associated symptoms: Reports vomiting and other (Altered mental status) Related Data Previous Rx's Medication Instructions Recorded furosemide 40 mg PO DAILY #30 tab 07/20/18 lactulose 30 ml PO DAILY PRN #300 ml 07/20/18 spironolactone 100 mg PO DAILY #30 tab 07/20/18 Allergies Allergy/AdvReac Type Severity Reaction Status Date / Time No Known Allergies Allergy Unverified 07/03/18 09:11 Review of Systems ROS: all other systems reviewed are negative [facility] Medical History Medical History Chest pain (Acute) Cirrhosis (Acute) Melena (Acute) Back pain (Acute) Liver disease (Acute) Inguinal hernia (Acute) Burn (Acute) Surgical History Surgical History No history of previous surgery (Acute) Social History Social History Substance History: No History of Abuse Second Hand Smoke Exposure: Yes Smoking Status: Former smoker Tobacco Type: Cigarettes How Often Do You Have a Drink Containing Alcohol: 2 to 3 times a week Recent Travel in [facility] within the Last 8 Weeks: No Recent Out of Country Travel within the Last 8 Weeks: No Immunization History Tetanus Immunization: <5 Years Exam Narrative Exam Narrative: GENERAL: Well-nourished, well-developed male patient, afebrile. Patient alert to person and place only SKIN: Focused skin assessment warm/dry. Patient is jaundiced HEAD: Normocephalic. Atraumatic EYES: No scleral icterus. No injection or drainage. NECK: Supple, trachea midline. No JVD or lymphadenopathy. CARDIOVASCULAR: Regular rate and rhythm without murmurs, gallops, or rubs. RESPIRATORY: Breath sounds equal bilaterally. No accessory muscle use. Lung sounds diminished throughout GASTROINTESTINAL: Abdomen distended, moans to palpation diffusely. MUSCULOSKELETAL: No cyanosis. BACK: Nontender without obvious deformity. No CVA tenderness. Course Initial Documented Vital Signs Temperature 99.4 F 10/14/18 17:09 Pulse Rate 101 H 10/14/18 17:09 Respiratory Rate 20 10/14/18 17:09 Blood Pressure 111/56 L 10/14/18 17:09 Pulse Oximetry 96 10/14/18 17:09 Last Documented Vital Signs Temperature 99.4 F 10/14/18 17:09 Pulse Rate 106 H 10/14/18 19:20 Respiratory Rate 18 10/14/18 19:20 Blood Pressure 103/53 L 10/14/18 19:20 Pulse Oximetry 97 10/14/18 19:20 Medical Decision Making MDM Narrative Medical decision making narrative: 68 year old male presents to the emergency department by EMS for evaluation of abdominal pain. IV access is obtained. EKG , CBC, CMP, lactic acid, lipase, magnesium, ck, troponin, alcohol level, ammonia level, PTT, PT/INR, UA, CT of the head, CT abdomen/pelvis with IV contrast, chest x-ray ordered and pending. Patient is given Zofran 4 mg IV. EKG shows sinus tachycardia, rate 102, no acute ST changes. CBC shows normal WBC 4.3, hemoglobin 11.8, hematocrit 33.6, 20 band neutrophils. CMP shows elevated bilirubin 9.2. Lactic acid is 2.3. Lipase is 354. Magnesium is 1.8. CK is 61. Troponin is less than 0.02. Ammonia level is 38. Alcohol level is less than 3. PTT is 38.3. PT/INR is 19.4/1.9. UA shows large occult blood , trace leukocyte esterase, 81 WBCs, occasional bacteria. Chest x-ray shows mild bibasilar parenchymal opacities. Ct of the brain is negative. CT of the abdomen/pelvis shows Cirrhosis and stigmata of portal hypertension. Patient is given vancomycin 1 g IV, Zosyn 3.375 g IV. Patient will be admitted for altered mental status, sepsis, pneumonia, UTI, liver cirrhosis. Medical Screen Exam Complete: Yes Emergency Medical Condition: Yes Differential Diagnosis Differential Diagnosis: Hepatic encephalopathy versus liver failure versus anatomic abnormality versus SBP versus pneumonia versus sepsis Medical Records Medical records reviewed: Yes I reviewed the patient's medical records. Lab Data Result diagrams: 10/14/18 17:57 10/14/18 17:57 Lab Results 10/14/18 10/14/18 10/14/18 Range/Units 17:57 17:57 17:57 WBC 4.3 (4.0-11.0) th/mm3 RBC 3.01 L (4.50-5.90) mil/mm3 Hgb 11.8 L (13.0-17.0) gm/dL Hct 33.6 L (39.0-51.0) % MCV 111.5 H (80.0-100.0) fL MCH 39.0 H (27.0-34.0) pg MCHC 35.0 (32.0-36.0) % RDW 16.3 (11.6-17.2) % Plt Count 121 L (150-450) th/mm3 MPV 8.2 (7.0-11.0) fL Prelim Diff (Auto) Slide review pending Neut % (Auto) 68.3 (16.0-70.0) % Lymph % (Auto) 23.3 (9.0-44.0) % Monroe % (Auto) 4.5 (0.0-8.0) % Eos % (Auto) 3.0 (0.0-4.0) % Baso % (Auto) 0.9 (0.0-2.0) % Neut # (Auto) 2.9 (1.8-7.7) th/mm3 Lymph # (Auto) 1.0 (1.0-4.8) th/mm3 Monroe # (Auto) 0.2 (0.0-0.9) th/mm3 Eos # (Auto) 0.1 (0.0-0.4) th/mm3 Baso # (Auto) 0.0 (0.0-0.2) th/mm3 WBC Differential Manual diff final Seg Neuts % (Manual) 53 (16-70) % Band Neuts % (Manual) 20 H (0-6) % Lymphocytes % (Manual) 22 (9-44) % Monocytes % (Manual) 4 (0-8) % Basophils % (Manual) 1 (0-2) % Abs Neuts (Manual) 3.1 (1.8-7.7) th/mm3 Differential Comment . Platelet Estimate Low L (Normal) Platelet Morphology Normal (Normal) Spherocytes 1+ H (None) Ovalocytes 1+ H (None) Acanthocytes (Spur) 1+ H (None) PT 19.4 H (9.8-11.6) sec INR 1.9 Ratio APTT 38.3 H (23.4-31.7) sec Sodium (136-145) meq/L Potassium (3.5-5.1) meq/L Chloride (98-107) meq/L Carbon Dioxide (21.0-32.0) meq/L Anion Gap (5-15) meq/L BUN (7-18) mg/dL Creatinine (0.60-1.30) mg/dL Estimated GFR (>89) mL/min Random Glucose (74-106) mg/dL Lactic Acid (0.4-2.0) mmol/L Calcium (8.5-10.1) mg/dL Magnesium (1.5-2.5) mg/dL Total Bilirubin (0.2-1.0) mg/dL AST (15-37) U/L ALT (12-78) U/L Alkaline Phosphatase (45-117) U/L Ammonia (11-32) mcmol/L Total Creatine Kinase (39-308) U/L Troponin I (0.02-0.05) ng/mL Total Protein (6.4-8.2) g/dL Albumin (3.4-5.0) g/dL Lipase (73-393) U/L Urine Color (Yellw/Straw) Urine Clarity (Clear) Urine pH (5.0-8.5) Ur Specific [place] (1.002-1.035) Urine Protein (Neg-Trace) mg/dL Urine Glucose (UA) (Negative) mg/dL Urine Ketones (Negative) mg/dL Urine Occult Blood (Negative) Urine Nitrate (Negative) Urine Bilirubin (Negative) Urine Ictotest (Negative) Urine Urobilinogen (Less than 2) mg/dL Ur Leukocyte Esterase (Negative) Urine RBC (0-3) /hpf Urine WBC (0-5) /hpf Urine WBC Clumps (None) Amorphous Sediment (None) /hpf Urine Bacteria (None) /hpf Hyaline Casts (0-3) /lpf Urine Mucus (Occasional) /lpf Micro UA Comment Ur Microscopic Review Urine Culture Comments Serum Alcohol Less than 3 (0-5) mg/dL 10/14/18 10/14/18 10/14/18 Range/Units 17:57 17:57 17:57 WBC (4.0-11.0) th/mm3 RBC (4.50-5.90) mil/mm3 Hgb (13.0-17.0) gm/dL Hct (39.0-51.0) % MCV (80.0-100.0) fL MCH (27.0-34.0) pg MCHC (32.0-36.0) % RDW (11.6-17.2) % Plt Count (150-450) th/mm3 MPV (7.0-11.0) fL Prelim Diff (Auto) Neut % (Auto) (16.0-70.0) % Lymph % (Auto) (9.0-44.0) % Monroe % (Auto) (0.0-8.0) % Eos % (Auto) (0.0-4.0) % Baso % (Auto) (0.0-2.0) % Neut # (Auto) (1.8-7.7) th/mm3 Lymph # (Auto) (1.0-4.8) th/mm3 Monroe # (Auto) (0.0-0.9) th/mm3 Eos # (Auto) (0.0-0.4) th/mm3 Baso # (Auto) (0.0-0.2) th/mm3 WBC Differential Seg Neuts % (Manual) (16-70) % Band Neuts % (Manual) (0-6) % Lymphocytes % (Manual) (9-44) % Monocytes % (Manual) (0-8) % Basophils % (Manual) (0-2) % Abs Neuts (Manual) (1.8-7.7) th/mm3 Differential Comment Platelet Estimate (Normal) Platelet Morphology (Normal) Spherocytes (None) Ovalocytes (None) Acanthocytes (Spur) (None) PT (9.8-11.6) sec INR Ratio APTT (23.4-31.7) sec Sodium 137 (136-145) meq/L Potassium 4.4 (3.5-5.1) meq/L Chloride 103 (98-107) meq/L Carbon Dioxide 27.6 (21.0-32.0) meq/L Anion Gap 6 (5-15) meq/L BUN 10 (7-18) mg/dL Creatinine 0.87 (0.60-1.30) mg/dL Estimated GFR 88 L (>89) mL/min Random Glucose 63 L (74-106) mg/dL Lactic Acid 2.3 H (0.4-2.0) mmol/L Calcium 7.9 L (8.5-10.1) mg/dL Magnesium 1.8 (1.5-2.5) mg/dL Total Bilirubin 9.2 H (0.2-1.0) mg/dL AST 50 H (15-37) U/L ALT 26 (12-78) U/L Alkaline Phosphatase 132 H (45-117) U/L Ammonia 38 H (11-32) mcmol/L Total Creatine Kinase 61 (39-308) U/L Troponin I Less than 0.02 L (0.02-0.05) ng/mL Total Protein 7.0 (6.4-8.2) g/dL Albumin 2.0 L (3.4-5.0) g/dL Lipase (73-393) U/L Urine Color (Yellw/Straw) Urine Clarity (Clear) Urine pH (5.0-8.5) Ur Specific [place] (1.002-1.035) Urine Protein (Neg-Trace) mg/dL Urine Glucose (UA) (Negative) mg/dL Urine Ketones (Negative) mg/dL Urine Occult Blood (Negative) Urine Nitrate (Negative) Urine Bilirubin (Negative) Urine Ictotest (Negative) Urine Urobilinogen (Less than 2) mg/dL Ur Leukocyte Esterase (Negative) Urine RBC (0-3) /hpf Urine WBC (0-5) /hpf Urine WBC Clumps (None) Amorphous Sediment (None) /hpf Urine Bacteria (None) /hpf Hyaline Casts (0-3) /lpf Urine Mucus (Occasional) /lpf Micro UA Comment Ur Microscopic Review Urine Culture Comments Serum Alcohol (0-5) mg/dL 10/14/18 10/14/18 Range/Units 17:57 19:00 WBC (4.0-11.0) th/mm3 RBC (4.50-5.90) mil/mm3 Hgb (13.0-17.0) gm/dL Hct (39.0-51.0) % MCV (80.0-100.0) fL MCH (27.0-34.0) pg MCHC (32.0-36.0) % RDW (11.6-17.2) % Plt Count (150-450) th/mm3 MPV (7.0-11.0) fL Prelim Diff (Auto) Neut % (Auto) (16.0-70.0) % Lymph % (Auto) (9.0-44.0) % Monroe % (Auto) (0.0-8.0) % Eos % (Auto) (0.0-4.0) % Baso % (Auto) (0.0-2.0) % Neut # (Auto) (1.8-7.7) th/mm3 Lymph # (Auto) (1.0-4.8) th/mm3 Monroe # (Auto) (0.0-0.9) th/mm3 Eos # (Auto) (0.0-0.4) th/mm3 Baso # (Auto) (0.0-0.2) th/mm3 WBC Differential Seg Neuts % (Manual) (16-70) % Band Neuts % (Manual) (0-6) % Lymphocytes % (Manual) (9-44) % Monocytes % (Manual) (0-8) % Basophils % (Manual) (0-2) % Abs Neuts (Manual) (1.8-7.7) th/mm3 Differential Comment Platelet Estimate (Normal) Platelet Morphology (Normal) Spherocytes (None) Ovalocytes (None) Acanthocytes (Spur) (None) PT (9.8-11.6) sec INR Ratio APTT (23.4-31.7) sec Sodium (136-145) meq/L Potassium (3.5-5.1) meq/L Chloride (98-107) meq/L Carbon Dioxide (21.0-32.0) meq/L Anion Gap (5-15) meq/L BUN (7-18) mg/dL Creatinine (0.60-1.30) mg/dL Estimated GFR (>89) mL/min Random Glucose (74-106) mg/dL Lactic Acid (0.4-2.0) mmol/L Calcium (8.5-10.1) mg/dL Magnesium (1.5-2.5) mg/dL Total Bilirubin (0.2-1.0) mg/dL AST (15-37) U/L ALT (12-78) U/L Alkaline Phosphatase (45-117) U/L Ammonia (11-32) mcmol/L Total Creatine Kinase (39-308) U/L Troponin I (0.02-0.05) ng/mL Total Protein (6.4-8.2) g/dL Albumin (3.4-5.0) g/dL Lipase 354 (73-393) U/L Urine Color Nancy (Yellw/Straw) Urine Clarity Cloudy H (Clear) Urine pH 6.0 (5.0-8.5) Ur Specific [place] 1.016 (1.002-1.035) Urine Protein 100 H (Neg-Trace) mg/dL Urine Glucose (UA) Negative (Negative) mg/dL Urine Ketones Negative (Negative) mg/dL Urine Occult Blood Large H (Negative) Urine Nitrate Negative (Negative) Urine Bilirubin Large H (Negative) Urine Ictotest Positive H (Negative) Urine Urobilinogen 0.2 (Less than 2) mg/dL Ur Leukocyte Esterase Trace H (Negative) Urine RBC 129 H (0-3) /hpf Urine WBC 81 H (0-5) /hpf Urine WBC Clumps Few H (None) Amorphous Sediment Moderate H (None) /hpf Urine Bacteria Occasional H (None) /hpf Hyaline Casts 3 (0-3) /lpf Urine Mucus Moderate H (Occasional) /lpf Micro UA Comment Cath-culture ind Ur Microscopic Review Not Reportable Urine Culture Comments Cath-cult indicated Serum Alcohol (0-5) mg/dL Imaging Data Radiologist's impression: Abdomen/Pelvis CT 10/14/18 17:27 CONCLUSION: Cirrhosis and stigmata of portal hypertension. Chest X-Ray 10/14/18 17:27 CONCLUSION: Mild bibasilar parenchymal opacities Head CT 10/14/18 17:27 CONCLUSION: Negative CT Head non contrast. . Discharge Plan Discharge Disposition Patient Disposition: ED Admit(ED Internal Use Only) Discharge Order Discharge Orders: ED Use Only Admit Order (Routine); Ordered 10/14/18 Ordered By: Stefanie Velasquez Discharge Details Diagnosis: Sepsis, Cirrhosis of liver, Altered mental status, Pneumonia, Acute UTI Physicians Team ED Provider: Alivia Hobson ED Midlevel Provider: Stefanie Velasquez Primary Care Provider: Primary Care Toshia Zimmer Attending Provider: Neelam Rausch Discharge Interventions Interventions: Vital Signs Last Done: 10/14/18 19:20 Status ED Status: Admitted Patient
[2018-10-14 18:23] LABS: Baso % (Auto) 0.9 % (0.0-2.0); Eos # (Auto) 0.1 th/mm3 (0.0-0.4); Hematocrit 33.6 % (39.0-51.0); Hemoglobin 11.8 gm/dL (13.0-17.0); Lymph % (Auto) 23.3 % (9.0-44.0); Mean Corpuscular Volume 111.5 fL (80.0-100.0); Mean Platelet Volume 8.2 fL (7.0-11.0); Mono # (Auto) 0.2 th/mm3 (0.0-0.9); Mono % (Auto) 4.5 % (0.0-8.0); Neut # (Auto) 2.9 th/mm3 (1.8-7.7); Neut % (Auto) 68.3 % (16.0-70.0); Platelet Count 121 th/mm3 (150-450); Red Blood Count 3.01 mil/mm3 (4.50-5.90); Red Cell Distribution Width 16.3 % (11.6-17.2); White Blood Count 4.3 th/mm3 (4.0-11.0)
[2018-10-14 18:29] LABS: Activated Partial Thrombo Time 38.3 sec (23.4-31.7); INR 1.9 Ratio; Prothrombin Time 19.4 sec (9.8-11.6)
--- NOTE | 2018-10-14 18:32 | XR ---
EXAM DATE: 10/14/2018 6:23 PM EST AGE/SEX: 68 years / Male INDICATIONS: Chest pain. CLINICAL DATA: This is the patient's initial encounter. Patient reports that signs and symptoms have been present for 1 day and indicates a pain score of Nonresponsive. MEDICAL/SURGICAL HISTORY: Non-responsive. Non-responsive. COMPARISON: [facility] [place], CHEST SINGLE AP, 04/22/2018. . FINDINGS: Mild bibasilar atelectasis. Cardiac contours are stable and satisfactory for technique and projection . CONCLUSION: Mild bibasilar parenchymal opacities Electronically signed by: Avelino Orellana MD Board Certified Radiologist 10/14/2018 6:31 PM EST
[2018-10-14 18:38] LABS: Alkaline Phosphatase 132 U/L (45-117)
[2018-10-14 18:45] LABS: Alanine Aminotransferase 26 U/L (12-78); Anion Gap 6 meq/L (5-15); Aspartate Aminotransferase 50 U/L (15-37); Blood Urea Nitrogen 10 mg/dL (7-18); Calcium 7.9 mg/dL (8.5-10.1); Carbon Dioxide 27.6 meq/L (21.0-32.0); Chloride 103 meq/L (98-107); Glomerular Filtration Rate 88 mL/min (>89); Glucose,Random 63 mg/dL (74-106); Magnesium 1.8 mg/dL (1.5-2.5); Potassium 4.4 meq/L (3.5-5.1); Sodium 137 meq/L (136-145)
[2018-10-14 18:46] LABS: Creatine Kinase 61 U/L (39-308)
[2018-10-14 18:54] LABS: Lymphocytes 22 % (9-44); Monocytes 4 % (0-8); Spherocytes 1+
[2018-10-14 18:55] LABS: Acanthocytes 1+; Ovalocytes 1+; Platelet Morphology Normal (Normal)
[2018-10-14] MEDS ORDERED: Vancomycin Inj 1,000 MG in Sodium Chlor 0.9% Inj 250 ML IV.SIG ONE (18:56)
[2018-10-14] MEDS ORDERED: Piperacil/Tazo 3.375 GM Premix 3.375 GM/50 ML PIGGYBACK IV.SIG ONE (18:56)
[2018-10-14] MEDS ORDERED: Morphine Inj 4 MG/ML Vial IV.PUSH ONE (19:01)
[2018-10-14 19:22] LABS: Amorphous Sediment,Urine Moderate /hpf; Bacteria,Urine Occasional /hpf; Clarity,Urine Cloudy (Clear); Color,Urine Amber (Yellw/Straw); Glucose,Urine (UA) Negative (Negative); Hyaline Casts,Urine 3 /lpf (0-3); Leukocyte Esterase,Urine Trace (Negative); Mucus,Urine Moderate /lpf (Occasional); Nitrite,Urine Negative (Negative); Specific Gravity,Urine 1.016 (1.002-1.035)
[2018-10-14 19:23] LABS: Bilirubin,Urine Large (Negative)
[2018-10-14 19:24] LABS: Urobilinogen,Urine 0.2 mg/dL (Less than 2)
[2018-10-14 19:27] LABS: Ictotest,Urine Positive (Negative)
--- NOTE | 2018-10-14 19:46 | CT ---
EXAM DATE: 10/14/2018 7:37 PM EST AGE/SEX: 68 years / Male INDICATIONS: Altered mental status. CLINICAL DATA: This is the patient's initial encounter. Patient reports that signs and symptoms have been present for 1 day and indicates a pain score of 0/10. MEDICAL/SURGICAL HISTORY: Cirrhosis. None. RADIATION DOSE: 57.48 CTDI (mGy) COMPARISON: No prior exams available for comparison. TECHNIQUE: CT of the head without contrast. Using automated exposure control and adjustment of the mA and/or kV according to patient size, radiation dose was kept as low as reasonably achievable to ob tain optimal diagnostic quality images. DICOM format image data is available electronically for revi ew and comparison. FINDINGS: Cerebrum: The ventricles are normal for age. No evidence of midline shift, mass lesion, hemorrhage or acute infarction. No extraaxial fluid collections are seen. Posterior Fossa: The cerebellum and brainstem are intact. The 4th ventricle is midline. The cerebe llopontine angle is unremarkable. Extracranial: The visualized portion of the orbits is intact. Skull: The calvaria is intact. No evidence of skull fracture. CONCLUSION: Negative CT Head non contrast. . Electronically signed by: Avelino Orellana MD Board Certified Radiologist 10/14/2018 7:45 PM EST
--- NOTE | 2018-10-14 20:02 | CT ---
EXAM DATE: 10/14/2018 7:47 PM EST AGE/SEX: 68 years / Male INDICATIONS: Abdominal pain, nausea. CLINICAL DATA: This is the patient's initial encounter. Patient reports that signs and symptoms have been present for 2 days and indicates a pain score of 6/10. MEDICAL/SURGICAL HISTORY: Cirrhosis. Liver disease, inguinal hernia, melena. None. ORAL CONTRAST: No oral contrast ingested. RADIATION DOSE: 7.54 CTDI (mGy) COMPARISON: [facility] [place], CT ABDOMEN & PELVIS W CONTRAST, 04/22/2018. . TECHNIQUE: Multiple contiguous axial images were obtained through the abdomen and pelvis following b olus infusion of 94 ml Omnipaque 350 (iohexol) nonionic water-soluble contrast as a single exam dos e. No oral contrast ingested. Using automated exposure control and adjustment of the mA and/or kV ac cording to patient size, radiation dose was kept as low as reasonably achievable to obtain optimal di agnostic quality images. DICOM format image data is available electronically for review and comparis on. FINDINGS: Abundant ascites. Lower Lungs: Mild bilateral basilar atelectasis. Small left effusion. Liver: The liver has a homogeneous density without space-occupying lesion. There is no dilation of th e biliary tree. Recanalized periumbilical veins Spleen: Mildly enlarged without focal mass Pancreas: Unremarkable without mass or calcification. Kidneys: Tiny lateral midpole left renal cortical cyst. No evidence of hydronephrosis. Adrenal Glands: Unremarkable. Aorta: The aorta and proximal iliac vessels are grossly unremarkable without aneurysmal dilation. Bowel/Mesentery: Mild nonspecific fluid distention of bowel which may reflect some component of ileu s. Abdominal Wall: Clustered varices in the periumbilical region. Retroperitoneum: No evidence of adenopathy in the retrocrural, para-aortic, or deep pelvic regions. Bladder: Contours are smooth. Reproductive Organs: No abnormal masses or calcifications seen. Inguinal: The inguinal region is unremarkable without evidence of adenopathy. Bony Structures: Unremarkable. CONCLUSION: Cirrhosis and stigmata of portal hypertension. Electronically signed by: Avelino Orellana MD Board Certified Radiologist 10/14/2018 8:01 PM EST
[2018-10-14] MEDS ORDERED: Acetaminophen 325 MG Tablet PO PRN (20:38)
[2018-10-14] MEDS ORDERED: Vancomycin Consult Pharmacy OTHER PRN (20:38)
[2018-10-14] MEDS ORDERED: Bisacodyl 10 MG Supp RECTAL PRN (20:38)
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
[2018-10-15] MEDS: Sod Chloride 0.9% Inj 1,000 ML IV.CONT SCH ×3 (00:35→18:14)
[2018-10-15] MEDS: Senna/Docusate Sodium 8.6/50 MG Tablet PO SCH ×3 (00:35→20:26)
[2018-10-15] MEDS: Morphine Inj 4 MG/ML Vial IV.PUSH PRN ×2 (01:06→04:58)
[2018-10-15] MEDS ORDERED: Haloperidol Inj 5 MG/ML Ampul IV.PUSH PRN (02:31)
[2018-10-15] MEDS ORDERED: LORazepam 1 MG Tablet PO PRN (02:31)
[2018-10-15 05:25] LABS: Baso % (Auto) 0.1 % (0.0-2.0); Eos % (Auto) 0.1 % (0.0-4.0); Hemoglobin 10.4 gm/dL (13.0-17.0); Lymph # (Auto) 1.2 th/mm3 (1.0-4.8); Lymph % (Auto) 11.3 % (9.0-44.0); Mean Corpuscular HGB Conc 35.8 % (32.0-36.0); Mean Corpuscular Hemoglobin 39.8 pg (27.0-34.0); Mean Corpuscular Volume 111.1 fL (80.0-100.0); Mean Platelet Volume 8.1 fL (7.0-11.0); Mono # (Auto) 1.2 th/mm3 (0.0-0.9); Mono % (Auto) 10.8 % (0.0-8.0); Neut # (Auto) 8.4 th/mm3 (1.8-7.7); Neut % (Auto) 77.7 % (16.0-70.0); Platelet Count 93 th/mm3 (150-450); Red Blood Count 2.61 mil/mm3 (4.50-5.90); Red Cell Distribution Width 16.1 % (11.6-17.2); White Blood Count 10.7 th/mm3 (4.0-11.0)
[2018-10-15 05:29] LABS: INR 2.2 Ratio; Prothrombin Time 22.7 sec (9.8-11.6)
[2018-10-15 05:46] LABS: Albumin 1.7 g/dL (3.4-5.0); Anion Gap 7 meq/L (5-15); Aspartate Aminotransferase 44 U/L (15-37); Blood Urea Nitrogen 16 mg/dL (7-18); Carbon Dioxide 24.5 meq/L (21.0-32.0); Chloride 103 meq/L (98-107); Glomerular Filtration Rate 67 mL/min (>89); Glucose,Random 85 mg/dL (74-106); Potassium 4.6 meq/L (3.5-5.1); Sodium 134 meq/L (136-145)
[2018-10-15 06:02] LABS: Alanine Aminotransferase 25 U/L (12-78); Alkaline Phosphatase 76 U/L (45-117)
[2018-10-15 07:49] LABS: Acanthocytes Occ; Burr Cells 1+; Lymphocytes 1 % (9-44); Metamyelocytes 1 % (0-1); Monocytes 8 % (0-8); Platelet Morphology Normal (Normal)
[2018-10-15] MEDS: Folic Acid 1 MG Tablet PO SCH (08:02)
[2018-10-15] MEDS: rifAXIMin 550 MG Tablet PO SCH ×2 (08:02→20:25)
[2018-10-15] MEDS: Multivitamin/Minerals Therapeutic Tablet PO SCH (08:02)
[2018-10-15] MEDS: Furosemide 40 MG Tablet PO SCH (08:03)
[2018-10-15] MEDS: Spironolactone 50 MG Tablet PO SCH (08:03)
--- NOTE | 2018-10-15 08:30 | P.PNIM ---
Subjective Interval history: More awake and alert today. In bed appears chronically ill. Very weak. Reports chills no fever. No n/v/. Able to eat but not much With abdominal pain diffuse. Ill appearing Physical Exam Vital signs: Last Vital Signs Temp 98.6 F 10/15/18 07:56 Pulse 97 H 10/15/18 07:59 Resp 20 10/15/18 07:59 BP 94/52 L 10/15/18 07:59 Pulse Ox 94 L 10/15/18 07:59 Intake & Output 10/13/18 10/14/18 10/15/18 10/16/18 06:59 06:59 06:59 06:59 Intake Total 300 / 300 Balance 300 / 300 Weight 72.5 kg Narrative: PE: GENERAL: Middle-aged white male chronically ill appearing SKIN: pale, jaundiced. CARDIOVASCULAR: Regular rate and rhythm. No obvious murmurs to auscultation. No chest tenderness to palpation. RESPIRATORY: No obvious rhonchi or wheezing. Clear to auscultation. Breath sounds equal bilaterally. GASTROINTESTINAL: Abdomen soft, diffuse mild tenderness, distended but soft. BS normal. MUSCULOSKELETAL: Extremities without clubbing, cyanosis, or edema. NEUROLOGICAL: Awake, alert and oriented x4. No focal neurologic deficits. Moving both upper and lower extremities spontaneously. PSYCHIATRIC: Appropriate mood and affect. Insight and judgment normal. Results Labs CBC & Chem 7: 10/15/18 04:42 10/15/18 04:42 Imaging Imaging: Impressions Abdomen/Pelvis CT 10/14/18 17:27 CONCLUSION: Cirrhosis and stigmata of portal hypertension. Chest X-Ray 10/14/18 17:27 CONCLUSION: Mild bibasilar parenchymal opacities Head CT 10/14/18 17:27 CONCLUSION: Negative CT Head non contrast. . Assessment and Plan (1) Sepsis: Code(s): A41.9 - Sepsis, unspecified organism Status: Acute (2) PNA (pneumonia): Code(s): J18.9 - Pneumonia, unspecified organism Status: Acute (3) UTI (urinary tract infection): Code(s): N39.0 - Urinary tract infection, site not specified Status: Acute (4) Cirrhosis: Code(s): K74.60 - Unspecified cirrhosis of liver Status: Acute Plan Severe Sepsis on admission, resolving Bacteremia on admission : Temp 99.7, HR 102, Lactic Acid 2.3, low BP, Source-UTI/PNA. Repeat Blood cultures, consult ID Continue Vanc/Zosyn IV. Follow up cultures, continue w/ IV Abx, repeat Lactic Acid IVF-caution w/ cirrhosis. Bibasilar PNA: CXR w/ bibasilar opacities, likely underlying pneumonia, will continue w/ broad spectrum antibiotics. DuoNeb prn if needed. UTI: U/a w/ UTI, continue IV Abx, follow up cultures, monitor I/O, repeat labs in am. Liver Cirrhosis: Chronic. Secondary to h/o Alcohol Abuse. Resume Rifaximin, Aldactone, Lasix-caution w/ volume depletion in light of sepsis Coagulopathy INT of 1.9 0 admission .Monitor for bleeding Alcohol Abuse: Chronic. High risk for withdrawal, CIWA, Seizure Precautions, MVT/Thiamine/Folate replacement. DVT Prophylaxis: Pharmacologic contraindication due to high risk for bleed/ coagulopathy, INR 1.9. CM consulted for d/c planning as needed. Progress Note: Quality VTE Deep Vein Thrombosis/Pulmonary Embolism Present on Admission: No
--- NOTE | 2018-10-15 08:38 | ECG ---
Date Performed: 10/14/2018 Time Performed: 18:40:31 PTAGE: 68 years EKG: SINUS TACHYCARDIA LEFT ANTERIOR FASCICULAR BLOCK POSSIBLE SEPTAL MYOCARDIAL INFARCTION POSS IBLE LATERAL MYOCARDIAL INFARCTION ABNORMAL ECG PREVIOUS TRACING : 04/23/2018 18.00 DOCTOR: True Ureña Interpretating Date/Time 10/15/2018 08:37:11
[2018-10-15] MEDS: Vancomycin Inj 1,250 MG in Sodium Chlor 0.9% Inj 250 ML IV.SIG SCH (11:30)
--- NOTE | 2018-10-15 12:34 | P.CONID ---
History of Present Illness Service: Infectious disease Consult date: 10/15/18 Requesting Physician: Zayra Marques Reason for Consult: Evaluation and management of severe sepsis, gram-negative bacteremia. Primary Care Provider: No Primary Care Physician History of Present Illness: Most of the history was obtained by review of medical records. Mr. Wang is a 68-year-old male with past medical history significant for alcohol abuse, cirrhosis, history of recurrent GI bleed as well as depression. Patient reports that he has been repeatedly admitted for GI bleed and has undergone colonoscopy as well as EGD in the last 2 months. Patient was subsequently discharged to a rehab facility. During this admission patient was brought into the ER by EMS for altered mental status and abdominal pain.. Patient reports black dark green colored stools but no obvious blood in the stool. He reports nausea vomiting or hematemesis. Upon arrival his blood pressure was 111 x 56 heart rate 101 and O2 sats 96% on room air and temperature 99.4. His lactic acid was elevated at 2.3. When I was visiting with the patient and the nurse informed me that his blood cultures are now positive for gram-negative rods identified as E. coli. Patient had a CT abdomen pelvis which showed cirrhosis and stigmata of portal hypertension. Patient has been started on Vanco and Zosyn after a sepsis workup was initiated. Patient has been receiving IV fluids [facility] physician. Infectious diseases consulted for evaluation and management of sepsis and gram- negative bacteremia. Review of Systems All other systems reviewed negative except as stated in HPI PMFSH - History History Provided By: Patient - Medical History Medical History: Medical History (Last Reviewed 10/15/18 @ 07:59 by Arnulfo Jett) Chest pain (Acute) Cirrhosis (Acute) Melena (Acute) Back pain (Acute) Liver disease (Acute) Inguinal hernia (Acute) Burn - Surgical History Surgical History: Surgical History (Last Reviewed 10/15/18 @ 07:59 by Arnulfo Jett) No history of previous surgery - Tobacco History Second Hand Smoke Exposure: Yes Tobacco Use In Past 30 Days: No Smoking Status: Former smoker Tobacco Type: Cigarettes - Alcohol History How Often Do You Have a Drink Containing Alcohol: 2 to 3 times a week - Substance Use History Substance History: No History of Abuse - Travel History Recent Travel in the [place] Within the Last 8 Weeks: No Recent Travel Out of the Country Within the Last 8 Weeks: No - Immunization History Tetanus Immunization: <5 Years Hx Influenza Vaccine This Season: Yes Medications and Allergies Active Medications: Active Medications Acetaminophen (Tylenol) 650 mg PO Q4H PRN PRN Reason: Temp > 100.4 Al Hydroxide/Mg Hydroxide (Milk Of Magnesia Liq) 30 ml PO Q12H PRN PRN Reason: Mild Constipation Bisacodyl (Dulcolax Supp) 10 mg RECTAL DAILY PRN PRN Reason: SEVERE CONSITIPATION Flumazenil (Romazecon Inj) 0.2 mg IV.PUSH Q1M PRN PRN Reason: OVERSEDATION Folic Acid (Folic Acid) 1 mg PO DAILY [facility] Stop: 10/20/18 08:59 Last Admin: 10/15/18 08:02 Dose: 1 mg Furosemide (Lasix) 40 mg PO DAILY [facility] Last Admin: 10/15/18 08:03 Dose: Not Given Haloperidol Lactate (Haldol Inj) 1 mg IV.PUSH Q15M PRN PRN Reason: for severe agitation Cefepime HCl 1,000 mg/ Sodium (Chloride) 100 mls @ 200 mls/hr IV.SIG Q12H [facility] Last Infusion: 10/15/18 11:30 Dose: Infused Sodium Chloride (Ns Inj) 1,000 mls @ 100 mls/hr IV.CONT .Q10H [facility] Last Infusion: 10/15/18 11:29 Dose: Infused Vancomycin HCl 1,250 mg/ (Sodium Chloride) 262.5 mls @ 250 mls/hr IV.SIG Q12H [facility] Last Admin: 10/15/18 11:30 Dose: 250 mls/hr Lactulose (Lactulose Liq) 30 ml PO DAILY PRN PRN Reason: SEVERE CONSITIPATION Lorazepam (Ativan) 2 mg PO Q2H PRN PRN Reason: for CIWA 11-14 Lorazepam (Ativan Inj) 2 mg IV.PUSH Q2H PRN PRN Reason: for CIWA 11-14 Lorazepam (Ativan Inj) 2 mg IV.PUSH Q1H PRN PRN Reason: for CIWA 15-20 Lorazepam (Ativan Inj) 2 mg IV.PUSH Q15M PRN PRN Reason: for CIWA > 20 Lorazepam (Ativan Inj) 1 mg IV.PUSH Q4H PRN PRN Reason: for CIWA 8-10 Lorazepam (Ativan) 1 mg PO Q4H PRN PRN Reason: for CIWA 8-10 Miscellaneous Information ([facility] Ordered Lab Info) 0 each OTHER ONCE ONE Stop: 10/16/18 22:46 Morphine Sulfate (Morphine Inj) 2 mg IV.PUSH Q3H PRN PRN Reason: PAIN SCALE 1 TO 10 Last Admin: 10/15/18 04:58 Dose: 2 mg Multivitamins/Minerals (Theragran-M) 1 tab PO DAILY [facility] Stop: 10/20/18 08:59 Last Admin: 10/15/18 08:02 Dose: 1 tab Ondansetron HCl (Zofran Inj) 4 mg IV.PUSH Q6H PRN PRN Reason: NAUSEA OR VOMITING Pharmacy Profile Note (Vancomycin Consult Pharmacy) 1 each OTHER UNSCH PRN PRN Reason: Pharmacy to dose Rifaximin (Xifaxan) 550 mg PO BID [facility] Last Admin: 10/15/18 08:02 Dose: 550 mg Senna/Docusate Sodium (Brianna-Colace) 1 tab PO BID [facility] Last Admin: 10/15/18 08:02 Dose: 1 tab Sennosides (Senokot) 17.2 mg PO Q12H PRN PRN Reason: Moderate Constipation Sodium Chloride (Ns Flush) 2 ml IV.FLUSH PRN PRN PRN Reason: FLUSH AFTER USING IV ACCESS Sodium Chloride (Ns Flush) 2 ml IV.FLUSH BID [facility] Last Admin: 10/15/18 08:03 Dose: Not Given Sodium Chloride (Ns Flush) 2 ml IV.FLUSH PRN PRN PRN Reason: FLUSH AFTER USING IV ACCESS Spironolactone (Aldactone) 50 mg PO DAILY [facility] Last Admin: 10/15/18 08:03 Dose: Not Given Thiamine HCl (Vitamin B1) 100 mg PO DAILY [facility] Last Admin: 10/15/18 08:02 Dose: 100 mg Allergies Allergy/AdvReac Type Severity Reaction Status Date / Time No Known Allergies Allergy Unverified 07/03/18 09:11 Home Medications Medication Instructions Recorded Confirmed Type aspirin 81 mg PO DAILY 10/14/18 10/14/18 History famotidine 20 mg PO BID 10/14/18 10/14/18 History lactulose 20 g PO QID 10/14/18 10/14/18 History loperamide 4 mg PO QID PRN 10/14/18 10/14/18 History minocycline 100 mg PO BID 10/14/18 10/14/18 History multivitamin 1 tab PO DAILY 10/14/18 10/14/18 History rifaximin 550 mg PO BID 10/14/18 10/14/18 History spironolactone 50 mg PO DAILY 10/14/18 10/14/18 History Exam Vital signs: Vital Signs 10/14/18 17:09 10/14/18 17:13 10/14/18 19:20 Temperature 99.4 F Pulse Rate 101 H 98 H 106 H Respiratory Rate 20 20 18 Blood Pressure 111/56 L 111/56 L 103/53 L Pulse Oximetry 96 95 97 10/14/18 20:51 10/14/18 21:17 10/15/18 00:00 Temperature 98.7 F Pulse Rate 102 H Respiratory Rate 16 20 Blood Pressure 110/58 L Pulse Oximetry 97 95 10/15/18 01:10 10/15/18 04:00 10/15/18 07:56 Temperature 98.7 F 98.6 F Pulse Rate 126 H 97 H Respiratory Rate 22 21 16 Blood Pressure 106/64 86/42 L Pulse Oximetry 92 L 93 L 10/15/18 07:59 10/15/18 11:55 Temperature 98.7 F Pulse Rate 97 H 98 H Respiratory Rate 20 16 Blood Pressure 94/52 L 100/55 L Pulse Oximetry 94 L 96 Intake & Output 10/14/18 10/15/18 10/15/18 18:59 06:59 18:59 Intake Total 300 / 300 1100 / 1100 Balance 300 / 300 1100 / 1100 Weight 77.111 kg 72.5 kg Intake: IV 300 / 300 1100 / 1100 NS Inj 1,000 ML @ 100 mls/hr IV 1000 / 1000 .CONT .Q10H [facility] Rx#:[id number] Maxipime Inj 1,000 MG In NS Inj 100 / 100 100 ML @ 200 mls/hr IV.SIG Q12H [facility] Rx#:[id number] Zosyn 3.375 GM Premix 3.375 gm 50 / 50 In 50 ml @ 100 mls/hr IV.SIG ONCE ONE Rx#:[id number] Vancomycin Inj 1,000 MG In NS 250 / 250 Inj 250 ML @ 250 mls/hr IV.SIG ONCE ONE Rx#:[id number] Other: # Voids 2 Weight On Admission 77.11 kg Narrative: GENERAL: Well-nourished well-developed, not in acute distress SKIN: Cool and dry, no generalized rash HEAD: Atraumatic. Normocephalic. No temporal or scalp tenderness. EYES: Pupils equal round and reactive. Scleral icterus. No injection or drainage. No petechia ENT: Nothing abnormal detected NECK: Trachea midline. Supple, nontender, no meningeal signs. CARDIOVASCULAR: HS audible. RESPIRATORY: Clear to auscultation bilaterally. GASTROINTESTINAL: Abdomen soft diffuse tenderness noted. No guarding or rigidity. No obvious fluid through. MUSCULOSKELETAL: Extremities without clubbing, cyanosis. NEUROLOGICAL: Alert oriented 3. Nonfocal. Psych cooperative IV line sites ok. Results - Labs CBC & Chem 7: 10/15/18 04:42 10/15/18 04:42 Labs: Laboratory Results - last 24 hr 10/14/18 10/14/18 10/14/18 17:57 17:57 17:57 WBC 4.3 RBC 3.01 L Hgb 11.8 L Hct 33.6 L MCV 111.5 H MCH 39.0 H MCHC 35.0 RDW 16.3 Plt Count 121 L MPV 8.2 Prelim Diff (Auto) Slide review pending Neut % (Auto) 68.3 Lymph % (Auto) 23.3 Steele % (Auto) 4.5 Eos % (Auto) 3.0 Baso % (Auto) 0.9 Neut # (Auto) 2.9 Lymph # (Auto) 1.0 Steele # (Auto) 0.2 Eos # (Auto) 0.1 Baso # (Auto) 0.0 WBC Differential Manual diff final Seg Neuts % (Manual) 53 Band Neuts % (Manual) 20 H Lymphocytes % (Manual) 22 Monocytes % (Manual) 4 Basophils % (Manual) 1 Metamyelocytes % (Man) Abs Neuts (Manual) 3.1 Differential Comment . Platelet Estimate Low L Platelet Morphology Normal Spherocytes 1+ H Ovalocytes 1+ H [place] Cells Acanthocytes (Spur) 1+ H PT 19.4 H INR 1.9 APTT 38.3 H Sodium Potassium Chloride Carbon Dioxide Anion Gap BUN Creatinine Estimated GFR Random Glucose Lactic Acid Calcium Magnesium Total Bilirubin AST ALT Alkaline Phosphatase Ammonia Total Creatine Kinase Troponin I Total Protein Albumin Lipase Urine Color Urine Clarity Urine pH Ur Specific [place] Urine Protein Urine Glucose (UA) Urine Ketones Urine Occult Blood Urine Nitrate Urine Bilirubin Urine Ictotest Urine Urobilinogen Ur Leukocyte Esterase Urine RBC Urine WBC Urine WBC Clumps Amorphous Sediment Urine Bacteria Hyaline Casts Urine Mucus Micro UA Comment Ur Microscopic Review Urine Culture Comments Serum Alcohol Less than 3 10/14/18 10/14/18 10/14/18 17:57 17:57 17:57 WBC RBC Hgb Hct MCV MCH MCHC RDW Plt Count MPV Prelim Diff (Auto) Neut % (Auto) Lymph % (Auto) Steele % (Auto) Eos % (Auto) Baso % (Auto) Neut # (Auto) Lymph # (Auto) [place] # (Auto) Eos # (Auto) Baso # (Auto) WBC Differential Seg Neuts % (Manual) Band Neuts % (Manual) Lymphocytes % (Manual) Monocytes % (Manual) Basophils % (Manual) Metamyelocytes % (Man) Abs Neuts (Manual) Differential Comment Platelet Estimate Platelet Morphology Spherocytes Ovalocytes [place] Cells Acanthocytes (Spur) PT INR APTT Sodium 137 Potassium 4.4 Chloride 103 Carbon Dioxide 27.6 Anion Gap 6 BUN 10 Creatinine 0.87 Estimated GFR 88 L Random Glucose 63 L Lactic Acid 2.3 H Calcium 7.9 L Magnesium 1.8 Total Bilirubin 9.2 H AST 50 H ALT 26 Alkaline Phosphatase 132 H Ammonia 38 H Total Creatine Kinase 61 Troponin I Less than 0.02 L Total Protein 7.0 Albumin 2.0 L Lipase Urine Color Urine Clarity Urine pH Ur Specific [place] Urine Protein Urine Glucose (UA) Urine Ketones Urine Occult Blood Urine Nitrate Urine Bilirubin Urine Ictotest Urine Urobilinogen Ur Leukocyte Esterase Urine RBC Urine WBC Urine WBC Clumps Amorphous Sediment Urine Bacteria Hyaline Casts Urine Mucus Micro UA Comment Ur Microscopic Review Urine Culture Comments Serum Alcohol 10/14/18 10/14/18 10/15/18 17:57 19:00 02:16 WBC RBC Hgb Hct MCV MCH MCHC RDW Plt Count MPV Prelim Diff (Auto) Neut % (Auto) Lymph % (Auto) [place] % (Auto) Eos % (Auto) Baso % (Auto) Neut # (Auto) Lymph # (Auto) [place] # (Auto) Eos # (Auto) Baso # (Auto) WBC Differential Seg Neuts % (Manual) Band Neuts % (Manual) Lymphocytes % (Manual) Monocytes % (Manual) Basophils % (Manual) Metamyelocytes % (Man) Abs Neuts (Manual) Differential Comment Platelet Estimate Platelet Morphology Spherocytes Ovalocytes [place] Cells Acanthocytes (Spur) PT INR APTT Sodium Potassium Chloride Carbon Dioxide Anion Gap BUN Creatinine Estimated GFR Random Glucose Lactic Acid 2.7 H Calcium Magnesium Total Bilirubin AST ALT Alkaline Phosphatase Ammonia Total Creatine Kinase Troponin I Total Protein Albumin Lipase 354 Urine Color Nancy Urine Clarity Cloudy H Urine pH 6.0 Ur Specific [place] 1.016 Urine Protein 100 H Urine Glucose (UA) Negative Urine Ketones Negative Urine Occult Blood Large H Urine Nitrate Negative Urine Bilirubin Large H Urine Ictotest Positive H Urine Urobilinogen 0.2 Ur Leukocyte Esterase Trace H Urine RBC 129 H Urine WBC 81 H Urine WBC Clumps Few H Amorphous Sediment Moderate H Urine Bacteria Occasional H Hyaline Casts 3 Urine Mucus Moderate H Micro UA Comment Cath-culture ind Ur Microscopic Review Not Reportable Urine Culture Comments Cath-cult indicated Serum Alcohol 10/15/18 10/15/18 10/15/18 04:42 04:42 04:42 WBC 10.7 D RBC 2.61 L Hgb 10.4 L Hct 29.0 L MCV 111.1 H MCH 39.8 H MCHC 35.8 RDW 16.1 Plt Count 93 L MPV 8.1 Prelim Diff (Auto) Slide review pending Neut % (Auto) 77.7 H Lymph % (Auto) 11.3 Steele % (Auto) 10.8 H Eos % (Auto) 0.1 Baso % (Auto) 0.1 Neut # (Auto) 8.4 H Lymph # (Auto) 1.2 [place] # (Auto) 1.2 H Eos # (Auto) 0.0 Baso # (Auto) 0.0 WBC Differential Manual diff final Seg Neuts % (Manual) 67 Band Neuts % (Manual) 23 H Lymphocytes % (Manual) 1 L Monocytes % (Manual) 8 Basophils % (Manual) Metamyelocytes % (Man) 1 Abs Neuts (Manual) 9.7 H Differential Comment . Platelet Estimate Low L Platelet Morphology Normal Spherocytes Ovalocytes [place] Cells 1+ H Acanthocytes (Spur) Occ H PT 22.7 H INR 2.2 APTT Sodium 134 L Potassium 4.6 Chloride 103 Carbon Dioxide 24.5 Anion Gap 7 BUN 16 Creatinine 1.09 Estimated GFR 67 L Random Glucose 85 Lactic Acid Calcium 8.0 L Magnesium Total Bilirubin 12.5 H AST 44 H ALT 25 Alkaline Phosphatase 76 Ammonia Total Creatine Kinase Troponin I Total Protein 6.0 L D Albumin 1.7 L Lipase Urine Color Urine Clarity Urine pH Ur Specific [place] Urine Protein Urine Glucose (UA) Urine Ketones Urine Occult Blood Urine Nitrate Urine Bilirubin Urine Ictotest Urine Urobilinogen Ur Leukocyte Esterase Urine RBC Urine WBC Urine WBC Clumps Amorphous Sediment Urine Bacteria Hyaline Casts Urine Mucus Micro UA Comment Ur Microscopic Review Urine Culture Comments Serum Alcohol 10/15/18 10:38 WBC RBC Hgb Hct MCV MCH MCHC RDW Plt Count MPV Prelim Diff (Auto) Neut % (Auto) Lymph % (Auto) Steele % (Auto) Eos % (Auto) Baso % (Auto) Neut # (Auto) Lymph # (Auto) Steele # (Auto) Eos # (Auto) Baso # (Auto) WBC Differential Seg Neuts % (Manual) Band Neuts % (Manual) Lymphocytes % (Manual) Monocytes % (Manual) Basophils % (Manual) Metamyelocytes % (Man) Abs Neuts (Manual) Differential Comment Platelet Estimate Platelet Morphology Spherocytes Ovalocytes [place] Cells Acanthocytes (Spur) PT INR APTT Sodium Potassium Chloride Carbon Dioxide Anion Gap BUN Creatinine Estimated GFR Random Glucose Lactic Acid 3.6 H Calcium Magnesium Total Bilirubin AST ALT Alkaline Phosphatase Ammonia Total Creatine Kinase Troponin I Total Protein Albumin Lipase Urine Color Urine Clarity Urine pH Ur Specific [place] Urine Protein Urine Glucose (UA) Urine Ketones Urine Occult Blood Urine Nitrate Urine Bilirubin Urine Ictotest Urine Urobilinogen Ur Leukocyte Esterase Urine RBC Urine WBC Urine WBC Clumps Amorphous Sediment Urine Bacteria Hyaline Casts Urine Mucus Micro UA Comment Ur Microscopic Review Urine Culture Comments Serum Alcohol - Imaging Impressions Abdomen/Pelvis CT 10/14/18 17:27 CONCLUSION: Cirrhosis and stigmata of portal hypertension. Chest X-Ray 10/14/18 17:27 CONCLUSION: Mild bibasilar parenchymal opacities Head CT 10/14/18 17:27 CONCLUSION: Negative CT Head non contrast. . Assessment and Plan - Plan Possible sepsis (bacteremia, elevated lactic acid and hypotension) Gram negative bacteremia: E.coli susceptibility pending. Likely GI source. GPC bacteremia MRSA in urine Cirrhosis of liver, portal HTN Acute metabolic encephalopathy: sepsis, hepatic. Hypoalbuminemia: cirrhosis related. Rule out HIV(pt consented. Recs Continue Cefepime IV Continue Vanco IV (target 15-20) Repeat blood cultures x 2 Check Hepatitis profile and HIV screen. Follow cultures Follow clinical course Dw RN if any GI bleed notify MD may need aggressive resuscitation and GI consult. covering for me this weekend.
[2018-10-16] MEDS: Vancomycin Inj 1,250 MG in Sodium Chlor 0.9% Inj 250 ML IV.SIG SCH ×3 (00:43→23:04)
[2018-10-16] MEDS: Morphine Inj 4 MG/ML Vial IV.PUSH PRN ×2 (01:39→20:31)
[2018-10-16] MEDS: Sod Chloride 0.9% Inj 1,000 ML IV.CONT SCH ×3 (04:00→23:04)
[2018-10-16 06:36] LABS: Baso % (Auto) 0.2 % (0.0-2.0); Eos % (Auto) 0.4 % (0.0-4.0); Hematocrit 24.6 % (39.0-51.0); Hemoglobin 8.9 gm/dL (13.0-17.0); Lymph # (Auto) 1.6 th/mm3 (1.0-4.8); Lymph % (Auto) 15.5 % (9.0-44.0); Mean Corpuscular Hemoglobin 40.6 pg (27.0-34.0); Mean Corpuscular Volume 112.2 fL (80.0-100.0); Mono # (Auto) 1.6 th/mm3 (0.0-0.9); Mono % (Auto) 15.7 % (0.0-8.0); Neut # (Auto) 7.1 th/mm3 (1.8-7.7); Neut % (Auto) 68.2 % (16.0-70.0); Platelet Count 84 th/mm3 (150-450); Red Blood Count 2.19 mil/mm3 (4.50-5.90); White Blood Count 10.4 th/mm3 (4.0-11.0)
[2018-10-16 06:52] LABS: Albumin 1.6 g/dL (3.4-5.0); Anion Gap 7 meq/L (5-15); Aspartate Aminotransferase 33 U/L (15-37); Blood Urea Nitrogen 17 mg/dL (7-18); Calcium 7.7 mg/dL (8.5-10.1); Carbon Dioxide 25.8 meq/L (21.0-32.0); Chloride 103 meq/L (98-107); Glomerular Filtration Rate Greater Than 89 mL/min (>89); Glucose,Random 72 mg/dL (74-106); Potassium 3.9 meq/L (3.5-5.1); Sodium 136 meq/L (136-145)
[2018-10-16 06:53] LABS: Alanine Aminotransferase 20 U/L (12-78)
[2018-10-16 06:55] LABS: Alkaline Phosphatase 51 U/L (45-117); Total Protein 5.4 g/dL (6.4-8.2)
[2018-10-16 07:32] LABS: Mean Corpuscular HGB Conc 36.2 % (32.0-36.0)
[2018-10-16 07:43] LABS: Hepatitis A IgM Antibody Nonreactive (Nonreactive); Hepatitits B Surface Antigen Nonreactive (Nonreactive)
[2018-10-16] MEDS: Multivitamin/Minerals Therapeutic Tablet PO SCH (08:21)
[2018-10-16] MEDS: Senna/Docusate Sodium 8.6/50 MG Tablet PO SCH ×2 (08:21→20:32)
[2018-10-16] MEDS: Folic Acid 1 MG Tablet PO SCH (08:21)
[2018-10-16] MEDS: Spironolactone 50 MG Tablet PO SCH (08:21)
[2018-10-16] MEDS: Furosemide 40 MG Tablet PO SCH (08:22)
[2018-10-16] MEDS: rifAXIMin 550 MG Tablet PO SCH ×2 (08:22→20:30)
[2018-10-16 08:41] LABS: Eosinophils 2 % (0-4); Lymphocytes 15 % (9-44); Monocytes 9 % (0-8)
[2018-10-16 08:43] LABS: Acanthocytes Occ; Platelet Morphology Normal (Normal)
--- NOTE | 2018-10-16 17:35 | P.PNIM ---
Subjective Interval history: The patient is in bed he appears chronically ill. Patient is not getting better. He has pain in his belly, blood pressure is into the lower side. He is with severe infection. He is considering hospice and will consult hospice for evaluation. With low-grade fevers Physical Exam Vital signs: Last Vital Signs Temp 98.2 F 10/16/18 12:00 Pulse 90 10/16/18 12:00 Resp 17 10/16/18 12:00 BP 89/50 L 10/16/18 12:00 Pulse Ox 96 10/16/18 12:00 Intake & Output 10/14/18 10/15/18 10/16/18 10/17/18 06:59 06:59 06:59 06:59 Intake Total 300 / 300 3929.0 / 3929.0 1246 / 1246 Balance 300 / 300 3929.0 / 3929.0 1246 / 1246 Weight 72.5 kg 75 kg Narrative: PE: GENERAL: Middle-aged white male chronically ill appearing SKIN: pale, jaundiced. CARDIOVASCULAR: Regular rate and rhythm. No obvious murmurs to auscultation. No chest tenderness to palpation. RESPIRATORY: No obvious rhonchi or wheezing. Clear to auscultation. Breath sounds equal bilaterally. GASTROINTESTINAL: Abdomen soft, diffuse mild tenderness, distended but soft. BS normal. MUSCULOSKELETAL: Extremities without clubbing, cyanosis, or edema. NEUROLOGICAL: Awake, alert and oriented x4. No focal neurologic deficits. Moving both upper and lower extremities spontaneously. PSYCHIATRIC: Appropriate mood and affect. Insight and judgment normal. Results Labs CBC & Chem 7: 10/16/18 05:33 10/16/18 05:33 Labs: Microbiology 10/14/18 17:57 Blood - Peripheral Aerobic Blood Culture - Final S. aureus MRSA 10/14/18 17:57 Blood - Peripheral Anaerobic Blood Culture - Final S. aureus MRSA 10/14/18 17:57 Blood - Peripheral Aerobic Blood Culture - Preliminary Escherichia coli 10/14/18 17:57 Blood - Peripheral Anaerobic Blood Culture - Preliminary S. aureus MRSA 10/15/18 13:48 Blood - Peripheral Aerobic Blood Culture - Preliminary No growth in 1 day 10/15/18 13:48 Blood - Peripheral Anaerobic Blood Culture - Preliminary No growth in 1 day 10/15/18 13:54 Blood - Peripheral Aerobic Blood Culture - Preliminary No growth in 1 day 10/15/18 13:54 Blood - Peripheral Anaerobic Blood Culture - Preliminary No growth in 1 day 10/14/18 19:00 Catheterized Urine Urine Culture - Final S. aureus MRSA Assessment and Plan (1) Sepsis: Code(s): A41.9 - Sepsis, unspecified organism Status: Acute (2) PNA (pneumonia): Code(s): J18.9 - Pneumonia, unspecified organism Status: Acute (3) UTI (urinary tract infection): Code(s): N39.0 - Urinary tract infection, site not specified Status: Acute (4) Cirrhosis: Code(s): K74.60 - Unspecified cirrhosis of liver Status: Acute Plan Severe Sepsis on admission, resolving Bacteremia on admission : Temp 99.7, HR 102, Lactic Acid 2.3, low BP, Source-UTI/PNA. Repeat Blood cultures, consult ID Continue Vanc/cefepime IV. Follow up cultures, continue w/ IV Abx, repeat Lactic Acid IVF-caution w/ cirrhosis. Bibasilar PNA: CXR w/ bibasilar opacities, likely underlying pneumonia, will continue w/ broad spectrum antibiotics. DuoNeb prn if needed. UTI: U/a w/ UTI, continue IV Abx, follow up cultures, monitor I/O, repeat labs in am. Liver Cirrhosis: Chronic. Secondary to h/o Alcohol Abuse. Resume Rifaximin, Aldactone, Lasix-caution w/ volume depletion in light of sepsis Coagulopathy INT of 1.9 0 admission .Monitor for bleeding Alcohol Abuse: Chronic. High risk for withdrawal, CIWA, Seizure Precautions, MVT/Thiamine/Folate replacement. DVT Prophylaxis: Pharmacologic contraindication due to high risk for bleed/ coagulopathy, INR 1.9. CM consulted for d/c planning as needed. Patient is considering hospice. Consult hospice Progress Note: Quality VTE Deep Vein Thrombosis/Pulmonary Embolism Present on Admission: No
[2018-10-16] MEDS ORDERED: Pharmacy Ordered Lab Info OTHER ONE (22:45)
[2018-10-17] MEDS: Morphine Inj 4 MG/ML Vial IV.PUSH PRN ×4 (00:42→15:24)
[2018-10-17 07:27] LABS: Baso % (Auto) 0.5 % (0.0-2.0); Eos # (Auto) 0.2 th/mm3 (0.0-0.4); Eos % (Auto) 3.4 % (0.0-4.0); Hematocrit 24.6 % (39.0-51.0); Lymph # (Auto) 1.2 th/mm3 (1.0-4.8); Lymph % (Auto) 20.4 % (9.0-44.0); Mean Corpuscular Hemoglobin 40.9 pg (27.0-34.0); Mean Corpuscular Volume 111.8 fL (80.0-100.0); Mean Platelet Volume 8.3 fL (7.0-11.0); Mono % (Auto) 15.8 % (0.0-8.0); Neut # (Auto) 3.7 th/mm3 (1.8-7.7); Neut % (Auto) 59.9 % (16.0-70.0); Platelet Count 87 th/mm3 (150-450); Red Cell Distribution Width 15.9 % (11.6-17.2); White Blood Count 6.1 th/mm3 (4.0-11.0)
[2018-10-17] MEDS: Sod Chloride 0.9% Inj 1,000 ML IV.CONT SCH (07:53)
[2018-10-17] MEDS: Spironolactone 50 MG Tablet PO SCH (07:59)
[2018-10-17] MEDS: Furosemide 40 MG Tablet PO SCH (08:00)
[2018-10-17] MEDS: Folic Acid 1 MG Tablet PO SCH (08:00)
[2018-10-17] MEDS: Multivitamin/Minerals Therapeutic Tablet PO SCH (08:00)
[2018-10-17] MEDS: Senna/Docusate Sodium 8.6/50 MG Tablet PO SCH (08:00)
[2018-10-17] MEDS: rifAXIMin 550 MG Tablet PO SCH (08:01)
[2018-10-17 08:02] LABS: Mean Corpuscular HGB Conc 36.6 % (32.0-36.0)
[2018-10-17 08:03] LABS: Acanthocytes Occ
[2018-10-17 08:04] LABS: Platelet Morphology Normal (Normal)
[2018-10-17 08:06] LABS: Alanine Aminotransferase 18 U/L (12-78); Albumin 1.5 g/dL (3.4-5.0); Alkaline Phosphatase 51 U/L (45-117); Anion Gap 5 meq/L (5-15); Aspartate Aminotransferase 32 U/L (15-37); Blood Urea Nitrogen 13 mg/dL (7-18); Calcium 7.3 mg/dL (8.5-10.1); Carbon Dioxide 25.6 meq/L (21.0-32.0); Chloride 104 meq/L (98-107); Glomerular Filtration Rate Greater Than 89 mL/min (>89); Glucose,Random 88 mg/dL (74-106); Potassium 3.6 meq/L (3.5-5.1); Sodium 135 meq/L (136-145); Total Protein 5.2 g/dL (6.4-8.2)
[2018-10-17] MEDS: Vancomycin Inj 1,250 MG in Sodium Chlor 0.9% Inj 250 ML IV.SIG SCH (10:56)
[2018-10-17 12:22] VITALS: O2SAT 94
--- NOTE | 2018-10-17 15:27 | P.DS ---
DS: Providers Date of admission: 10/14/18 20:40 Primary care physician: No Primary Care Physician Consults: 10/14/18 21:05 HUB Only Consult Order Routine Consulting Provider: Emmanuel Benitez 10/15/18 08:26 Consult to Infectious Diseases Routine Consulting Provider: Louisa Richter Reason for Consultation: severe sepsis Notified:: Service Spoke with:: earl Date Notified:: 10/15/18 Time Notified:: 08:34 Ordering Provider: ADAN 10/15/18 11:01 HUB Only Consult Order Routine Consulting Provider: [facility],Agency Brief History from admission: CXR mild bibasilar opacities. CT Head negative. UA positive for UTI.This is a 68-year-old male with a PMH of Alcohol Abuse, Cirrhosis, Depression and h/o GI Bleed who was brought to the ER by EMS for AMS and abdominal pain. On arrival, pt noted to be confused, very poor historian, unable to obtain much information, however he is able to tell me "I feel lowsy". No nausea, vomiting or diarrhea. On arrival, BP 111/56, HR 101, O2 sat 96% on RA, Temp 99.4. CBC at baseline. INR 1.9. Chemistry essentially unremarkable. Lactic Acid 2.3. Troponin negative. CT Abdomen/Pelvis cirrhosis and stigmata of portal hypertension. S/p Vanc/Zosyn in ER. DS: Diagnosis Discharge Diagnosis (1) Sepsis: Status: Acute (2) PNA (pneumonia): Status: Acute (3) UTI (urinary tract infection): Status: Acute (4) Cirrhosis: Status: Acute DS: Summary 68-year-old male with a PMH of Alcohol Abuse, Cirrhosis, Depression and h/o GI Bleed who was brought to the ER by EMS for AMS and abdominal pain. On arrival, pt noted to be confused, very poor historian, unable to obtain much information , however he is able to tell me "I feel lowsy". No nausea, vomiting or diarrhea. On arrival, BP 111/56, HR 101, O2 sat 96% on RA, Temp 99.4. CBC at baseline. INR 1.9. Chemistry essentially unremarkable. Lactic Acid 2.3. Troponin negative. CT Abdomen/Pelvis cirrhosis and stigmata of portal hypertension. S/p Vanc/Zosyn in ER. Received IV abx in the hospital Vanc/ cefepime IV. Patient is with poor prognosis and he was asking for hospice. Consulted hospice. Patient decided to be discharged with hospice in [facility]. DC in deteriorating condition to hospice. Severe Sepsis on admission, resolving Bacteremia Hypotention MATT on admission : Temp 99.7, HR 102, Lactic Acid 2.3, low BP, Source-UTI/PNA. Repeat Blood cultures, consult ID Received IV abx in the hospital Vanc/cefepime IV. Follow up cultures, continue w/ IV Abx, repeat Lactic Acid IVF-caution w/ cirrhosis. Bibasilar PNA: CXR w/ bibasilar opacities, likely underlying pneumonia, as above. DuoNeb prn if needed. UTI: U/a w/ UTI, continue IV Abx, follow up cultures, monitor I/O, repeat labs in am. Liver Cirrhosis: Chronic. Secondary to h/o Alcohol Abuse. Resume Rifaximin, Aldactone, Lasix-caution w/ volume depletion in light of sepsis Coagulopathy INT of 1.9 0 admission .Monitor for bleeding Alcohol Abuse: Chronic. High risk for withdrawal, CIWA, Seizure Precautions, MVT/Thiamine/Folate replacement. DVT Prophylaxis: Pharmacologic contraindication due to high risk for bleed/ coagulopathy, INR 1.9. CM consulted for d/c planning as needed. Patient is with poor prognosis and he was asking for hospice. Consulted hospice. Patient decided to be discharged with hospice in [facility] Facility. DC in deteriorating condition to hospice. Time spent discussing smoking cessation with patient: more than 10 minutes Time Spent with Patient Total time spent providing and/or coordinating discharge services: > 30 minutes Quality: VTE Deep Vein Thrombosis/Pulmonary Embolism Present on Admission: No Exam Narrative Exam Narrative: GENERAL: Middle-aged white male chronically ill appearing SKIN: pale, jaundiced. CARDIOVASCULAR: Regular rate and rhythm. No obvious murmurs to auscultation. No chest tenderness to palpation. RESPIRATORY: No obvious rhonchi or wheezing. Clear to auscultation. Breath sounds equal bilaterally. GASTROINTESTINAL: Abdomen soft, diffuse mild tenderness, distended but soft. BS normal. MUSCULOSKELETAL: Extremities without clubbing, cyanosis, or edema. NEUROLOGICAL: Awake, alert and oriented x4. No focal neurologic deficits. Moving both upper and lower extremities spontaneously. PSYCHIATRIC: Appropriate mood and affect. Insight and judgment normal. Results Labs on day of discharge: Labs from last 24 hours 10/17/18 10/17/18 10/16/18 06:22 06:22 23:15 WBC 6.1 RBC 2.20 L Hgb 9.0 L Hct 24.6 L MCV 111.8 H MCH 40.9 H MCHC 36.6 H RDW 15.9 Plt Count 87 L MPV 8.3 Prelim Diff (Auto) Slide review pending Neut % (Auto) 59.9 Lymph % (Auto) 20.4 Alcorn % (Auto) 15.8 H Eos % (Auto) 3.4 Baso % (Auto) 0.5 Neut # (Auto) 3.7 Lymph # (Auto) 1.2 Alcorn # (Auto) 1.0 H Eos # (Auto) 0.2 Baso # (Auto) 0.0 WBC Differential . Diff Scan Auto diff confirmed Differential Comment . Platelet Estimate Low L Platelet Morphology Normal Acanthocytes (Spur) Occ H Keratocytes 1+ H Sodium 135 L Potassium 3.6 Chloride 104 Carbon Dioxide 25.6 Anion Gap 5 BUN 13 Creatinine 0.64 Estimated GFR Greater than 89 POC Glucose Random Glucose 88 Calcium 7.3 L* Calcium Adj for Albumin 9.3 Total Bilirubin 10.7 H AST 32 ALT 18 Alkaline Phosphatase 51 Total Protein 5.2 L Albumin 1.5 L Vancomycin Trough 10.0 10/16/18 23:09 WBC RBC Hgb Hct MCV MCH MCHC RDW Plt Count MPV Prelim Diff (Auto) Neut % (Auto) Lymph % (Auto) Alcorn % (Auto) Eos % (Auto) Baso % (Auto) Neut # (Auto) Lymph # (Auto) Alcorn # (Auto) Eos # (Auto) Baso # (Auto) WBC Differential Diff Scan Differential Comment Platelet Estimate Platelet Morphology Acanthocytes (Spur) Keratocytes Sodium Potassium Chloride Carbon Dioxide Anion Gap BUN Creatinine Estimated GFR POC Glucose 120 H Random Glucose Calcium Calcium Adj for Albumin Total Bilirubin AST ALT Alkaline Phosphatase Total Protein Albumin Vancomycin Trough Preliminary micro results at discharge 10/15/18 13:48 Aerobic Blood Culture - Preliminary Blood - Peripheral No growth in 2 days Anaerobic Blood Culture - Preliminary No growth in 2 days 10/15/18 13:54 Aerobic Blood Culture - Preliminary Blood - Peripheral No growth in 2 days Anaerobic Blood Culture - Preliminary No growth in 2 days Impressions ITS Impressions Abdomen/Pelvis CT 10/14/18 17:27 CONCLUSION: Cirrhosis and stigmata of portal hypertension. Chest X-Ray 10/14/18 17:27 CONCLUSION: Mild bibasilar parenchymal opacities Head CT 10/14/18 17:27 CONCLUSION: Negative CT Head non contrast. . Discharge Plan Discharge Disposition Patient Disposition: [facility] Hospice[facility] Facility Discharge Order Discharge Orders: Discharge Order (Routine); Ordered 10/17/18 Ordered By: Zayra Mraques Physicians Team Primary Care Provider: Primary Care Toshia Zimmer Attending Provider: Zayra Marques Other Providers: Emmanuel Benitez ; Louisa Richter ; [facility],Agency Rxs /Orders / Referrals /Forms Prescriptions: Continue multivitamin Tablet 1 tab PO DAILY RF: 0 minocycline 100 mg Capsule 100 mg PO BID RF: 0 loperamide 2 mg Tablet 4 mg PO QID PRN (Reason: Diarrhea) RF: 0 famotidine 20 mg Tablet 20 mg PO BID RF: 0 aspirin 81 mg Tablet,Chewable 81 mg PO DAILY RF: 0 spironolactone 50 mg Tablet 50 mg PO DAILY RF: 0 rifaximin 550 mg Tablet 550 mg PO BID RF: 0 lactulose 20 gram/30 mL Solution 20 g PO QID RF: 0 furosemide 40 mg Tablet 40 mg PO DAILY Qty: 30 RF: 0 Referrals: Primary Care Toshia Zimmer [Primary Care Provider] - See Instructions Discharge Instructions Patient Printed Instructions: Cirrhosis (DC), Urinary Tract Infection in Men ( DC) Status ED Status: Left Department
[2018-10-17 18:22] VITALS: BP 108/67; PULSE 90; RESP 17; TEMP 98.1
[2018-10-17] MEDS ORDERED: Vancomycin Inj 1,500 MG in Sodium Chlor 0.9% Inj 500 ML IV.SIG SCH (22:00)
[2018-10-19] MEDS ORDERED: Pharmacy Ordered Lab Info OTHER ONE (09:45)
--- NOTE | 2018-10-22 14:25 | PQ ---
Physician Query Response Document PATIENT: Bulmaro Wang : 1950 ADMIT DATE: 10/14/2018 8:40 PM DISCH DATE: 10/17/2018 7:02 PM RESPONDING PROVIDER #: MCOSMA QUERY TEXT: Present On Admission It is unclear whether a diagnosis was present on admission. Your help is needed. Please clarify the POA status of diagnosis of MATT. Such as: -- Present on admission -- Not present on admission If you have any additional questions/comments and/or concerns, please do not hesitate to reach out to the CDI/Coding Hotline, Ext. [phone]. The patient's Clinical Indicators include: Discharge Summary documents: Patient decided to be discharged with hospice in [facility] Facility. DC in deteriorating condition to hospice. Severe Sepsis on admission, resolving Bacteremia Hypotention MATT This is the ONLY documentation of MATT, renal failure or other similar diagnosis. Labs: BUN Intake and Output measurements by Nursing on 10/17/18 at 18:00 show intake of 525, urine voided 200 w ith 4 voids. Query created by: Shanika Peres on 10/21/2018 5:43 PM RESPONSE TEXT: Rectify. Patient doesn't have MATT in this admission Electronically signed by: Zayra Marques MD 10/22/2018 2:21 PM
== END 2018-10-17 19:02 | disposition hospice, inpatient (51) | DRG 871 ==
LOC: NEPC 16:44 → NEDA 20:40 → N07 22:00
PROVIDERS: ADMIT Hospitalist; ATTEND Hospitalist
DX: K70.30 Alcoholic cirrhosis of liver without ascites; R65.20 Severe sepsis without septic shock; Z51.5 Encounter for palliative care; A41.51 Sepsis due to Escherichia coli [E. coli]; J18.9 Pneumonia, unspecified organism; N39.0 Urinary tract infection, site not specified; Z79.82 Long term (current) use of aspirin; F10.10 Alcohol abuse, uncomplicated; E88.09 Other disorders of plasma-protein metabolism, not elsewhere classified; K76.6 Portal hypertension; Z87.891 Personal history of nicotine dependence; G93.41 Metabolic encephalopathy
CPT/HCPCS: 70450; 71010; 71045; 74177; 80053; 80074; 80202; 80307; 81001; 82140; 82550; 82948; 82962; 83605; 83690; 83735; 84484; 85025; 85610; 85730; 86403; 87040; 87086; 87147; 87149; 87186; 87205; 87389; 90765; 90775; 93005; 96365; 96375; 97162; 99285; J0692; J2270; J2405; J2543; J3370; J7030; J7050; P9612; Q9967